=== PATIENT | male | born 1960 | race Caucasian/White ===

== ENCOUNTER → 2025-02-22 10:46 | Outpatient (BNVA) | payer OTHER, SELFPAY | PROVIDERS: PCP Family Medicine; Visit Provider Orthopaedic Surgery | DX: M17.12 Unilateral primary osteoarthritis, left knee (principal) | CPT/HCPCS: 20610; 99204; J3301; J3490; J9999 ==

== ENCOUNTER → 2025-03-15 10:23 | Outpatient (BNVA) | payer OTHER, SELFPAY | PROVIDERS: PCP Family Medicine; Visit Provider Orthopaedic Surgery | DX: M93.262 Osteochondritis dissecans, left knee (principal); G89.29 Other chronic pain | CPT/HCPCS: 99213 ==

== ENCOUNTER 2025-03-22 15:03 | Outpatient (CLI) | payer OTHER, SELFPAY ==
[2025-03-22 16:15] LABS: Basophils # 0.1 10^3/uL (0.0-0.1); Basophils % 0.7 %; Eosinophils # 0.4 10^3/uL (0.0-0.8); Eosinophils % 5.2 %; Hematocrit 46.8 % (37-53); Lymphocytes # 1.4 10^3/uL (0.8-4.8); Lymphocytes % 18.1 %; Mean Corpuscular HGB Conc 32.1 g/dL (30-55); Mean Corpuscular Hemoglobin 29.1 pg (27-33); Mean Corpuscular Volume 90.7 fl (82-101); Mean Platelet Volume 9.2 fL (7.4-10.4); Monocytes # 0.9 10^3/uL (0.2-0.9); Monocytes % 11.2 %; Neutrophils # 4.96 10^3/uL (1.8-7.7); Neutrophils % 64.4 %; Nucleated Red Blood Cells % 0 %; Platelet Count 220 10^3/cmm (157-399); Red Blood Count 5.16 10^6/uL (3.85-5.65); Red Cell Distribution Width 12.5 % (12.1-15.1); White Blood Count 7.69 10^3/uL (3.29-11.43)
[2025-03-22 16:18] LABS: Bilirubin Urine Negative (Negative); Blood Urine Negative (Negative); Glucose Urine UA Negative (Normal); Ketones Urine Trace (Negative); Leukocyte Esterase Urine Negative (Negative); Nitrate Urine Negative (Negative); Protein Urine Negative (Negative); Specific Gravity, Urine 1.026 (1.005-1.030); Urine Appearance Clear (CLEAR); Urine Color Yellow (Yellow); pH Urine 5.5 (5-7)
[2025-03-22 16:22] LABS: Add Urine Microscopic? YES; Bacteria Urine None Seen /hpf; Hyaline Casts Urine 0-4 /lpf; RBC Urine 0-2 /hpf (0-2); Squamous Epithelial Cell Urine 0-5 /hpf (0-5); WBC Urine 0-5 /hpf (0-5)
[2025-03-22 16:26] LABS: Alanine Aminotransferase 14 U/L (0-41); Albumin Level 3.8 g/dL (3.5-5.2); Alkaline Phosphatase 49 U/L (40-130); Anion Gap 13.7 (5-19); Aspartate Amino Transferase 18 U/L (0-40); Blood Urea Nitrogen 20 mg/dL (8-23); Calcium 9.2 mg/dL (8.5-10.5); Carbon Dioxide 30 mmol/L (22-29); Chloride 98 mmol/L (98-107); Globulin 3.1 g/dL (1.3-4.6); Glomerular Filtration Rate 84.7 mL/min (90-130); Glucose 112 mg/dL (65-115); Osmolality Calculated 287 mOsm/kg (285-295); Potassium 4.7 mmol/L (3.5-5.1); Sodium 137 mmol/L (136-145); Total Bilirubin 0.4 mg/dL (0.15-1.2); Total Protein 6.9 g/dL (6.6-8.7)
== END 2025-03-22 15:04 | disposition home or self-care (01) ==
LOC: LAB 15:05
PROVIDERS: PCP Family Medicine; Visit Provider Orthopaedic Surgery
DX: Z01.818 Encounter for other preprocedural examination (principal)
CPT/HCPCS: 80053; 81001; 85025

== ENCOUNTER → 2025-04-06 08:49 | Outpatient (BNVA) | payer OTHER, SELFPAY | PROVIDERS: PCP Family Medicine; Visit Provider Family Medicine | DX: Z01.818 Encounter for other preprocedural examination (principal) | CPT/HCPCS: 93005 ==

== ENCOUNTER 2025-04-21 13:33 | Observation (INO) | payer OTHER, MEDICARE, SELFPAY ==
[2025-04-21] VITALS (34 sets, daily range): BP systolic 102–208; BP diastolic 65–128; PULSE 72–115; RESP 12–27; TEMP 36.4–37.2; O2SAT 90–98; BMI 49.5
--- NOTE | 2025-04-21 10:15 | ANES.PREANE2 ---
Pre-Anesthetic Assessment Height/Weight: Height 6 ft Weight 365 lb Temp Pulse Resp BP Pulse Ox O2 Del Method 98.3 F 89 20 H 136/99 91 Room Air 04/21/25 08:50 04/21/25 08:50 04/21/25 08:50 04/21/25 08:50 04/21/25 08:50 04/21/25 09:02 Preop Diagnosis: Knee arthritis Operation Date: 04/21/25 10:35 Proposed Procedures p LEFT Total Knee Arthroplasty(Left) - Kehinde Tristan MD Was Beta Leonela taken within 24 hours: N/A Was Clonidine taken within 24 hours: N/A Last intake: Intake Last Liquid Date 04/21/25 Last Liquid Time 08:00 Last Solid Date 04/20/25 Last Solid Time 21:30 Social No alcohol and No tobacco Exam alert, oriented x 3, clear to auscultation bilaterally and regular rate & rhythm Airway Submandibular: within normal limits Cervical ROM: within normal limits Mallampati: Class III Comments: Comments: Implants Anesthetic Plan ASA status: 3 Anesthesia: MAC and Regional (specify below) Other: No prior anesthesia history NPO since yesterday evening other than half glass of water earlier this a.m. History of hypertension on lisinopril?HCTZ. Preop BP 136/99 Chronic back pain Type 2 diabetes, on metformin. Preop BS 98. Last A1c was 7.2 Recent labs reviewed acceptable for procedure EKG showing sinus rhythm Plan for spinal anesthesia with postoperative nerve block Medications/Allergies Home Medications ?Medication ?Instructions ?Recorded ?Confirmed ?Last Taken ?Type lisinopril 10 1 tab PO BID 03/15/25 04/21/25 04/20/25 History mg-hydrochlorothiazide 12.5 mg tablet tamsulosin 0.4 mg capsule 0.4 mg PO DAILY 03/15/25 04/21/25 04/20/25 History acetaminophen 500 mg tablet 1,500 mg PO BID 04/20/25 04/21/25 04/21/25 History diclofenac sodium 1 % topical gel 2 g topical QID 04/20/25 04/21/25 2 Weeks Ago History ~04/07/25 hydroxyzine HCl 25 mg tablet 25 mg PO BEDTIME 04/20/25 04/21/25 04/20/25 History metformin 1,000 mg tablet 500 mg PO BIDWMEAL 0704/21/25 04/20/25 History Allergies Allergy/AdvReac Type Severity Reaction Status Date / Time tetracycline Allergy Severe rash Verified 04/21/25 08:56 Current Medications Generic Name Dose Route Start Last Admin Trade Name Freq PRN Reason Stop Dose Admin Sodium Chloride 1,000 mls @ 30 mls/hr 04/21/25 08:45 04/21/25 09:20 Sodium Chloride 0.9% IV 04/22/25 08:44 30 mls/hr .Q24H CHRISSIE Administration PFSH Anesthesia Social History Smoking and tobacco/nicotine status: never used tobacco/nicotine
--- NOTE | 2025-04-21 10:25 | W.PM.OPSUD ---
Surgery/Procedure H&P Update DATE OF PROCEDURE: April 21, 2025 DATE H&P PERFORMED: 04/06/25 H&P UPDATE INFORMATION: I have reviewed H&P completed within last 30 days, I have examined patient prior to procedure and No changes to prior documentation PREOP DIAGNOSIS: Knee arthritis PLANNED PROCEDURE: Operation Date: 04/21/25 10:35 Proposed Procedures p LEFT Total Knee Arthroplasty(Left) - Kehinde Tristan MD
[2025-04-21] MEDS: ceFAZolin 3,000 MG in sodium chloride 0.9% (plus) 100 ML 200 MG IV ×2 (10:40→17:04)
[2025-04-21] MEDS: tranexamic acid 1,000 mg/10mL SDV 1000 MG IV (11:15)
--- NOTE | 2025-04-21 12:26 | XR_ITS ---
WS: [id number] Left knee, AP and lateral views, 04/21/2025 Clinical Data: Left total knee arthroplasty Comparison: Left knee, 01/04/2025 Findings: There is an left knee arthroplasty. The components are in good position. There are anterior surgical armaan in the subcutaneous tissue. There is air in the subcutaneous tissues from recent surgery. XR/XR knee LT 1-2V [id number] Impression: Left knee arthroplasty.
--- NOTE | 2025-04-21 12:33 | PM.OP ---
Operative Report Date of procedure: April 21, 2025 Surgeon: Kehinde Tristan MD Procedure: Preoperative diagnosis: End-stage degenerative joint disease left knee Postoperative diagnosis: Same Procedure: Left total knee arthroplasty Surgeon: Kehinde Tristan MD Pig Casting Machine Operator: GEE Weller's assistance was necessary for placement of the patient on the operative table, assistance during the procedure, assistance with wound closure, dressing placement and transported patient to the PACU Anesthesia: General EBL:50 cc Tourniquet time: 41 minutes at 300 mmHg Indications: Fernando is a 64-year-old white male who is seen in the orthopedic clinics after being worked up by his primary care provider. Subsequently MRI of his knee demonstrated osteochondral defect of the lateral femoral condyle as well as valgus position of the knee and further osteoarthritic changes throughout the knee. Patient had failed all conservative measures and therefore at this time was offered a total knee arthroplasty. All risk benefits treatment alternatives were discussed and he was agreeable to this at this time. Procedure: After obtaining consent patient taken to the operating room placed on the operative table. Per patient request spinal anesthetic was attempted however was unsuccessful and therefore the patient had a general anesthetic. Once good anesthesia was achieved pneumatic cuffs placed on proximal left leg left leg is prepped and draped usual fashion. After surgical timeout and gravity exsanguination of the leg pneumatic cuffs inflated to 300 mmHg. Then a holding device and therefore the knee was held at 90 degrees and a longitudinal incision made over the anterior aspect the knee from superior pole the patella down to the tibial tubercle. Sharp dissect taken down to subcutaneous tissues electrocautery used to hemostasis. Knee was opened up along medial parapatellar incision line. Incision was then extended proximally and distally for better visualization. Soft tissue was raised off the medial aspect of the tibia to expose the knee more. Soft tissue was sharply debrided including fat pad and ACL and anterior horns of the menisci. Knee was placed in full extension and patella was everted. Soft tissues were dissected away with electrocautery around the periphery. Rongeurs were used to remove osteophytes from the patella. Subsequently using a patella reaming male patella is reamed down to 14 mm thickness. Knee was flexed back to 90 degrees and patella was placed in the lateral gutter. Appropriate retractors were placed including PCL retractor. Tibial cutting guide was position externally with a with appropriate posterior slope. A 2 mm cut at the most affected side that being lateral was set for the cutting block. Small osteotome driven anterior to the PCL to protect it during cutting on the tibia. Sagittal saw was used to make the tibial cut. Tibial cut was removed piecemeal. It was found the lateral surface of the tibial plateau was quite sclerotic. At this point a drill holes placed in the distal femur just anterior to the intercondylar notch. Guide justino was then placed up this drill holes in the interventionally canal and the position of the distal femur for the distal femur cutting block. Once in place and pin distal cut was made which was found to be an adequate and therefore 2 more millimeters of distal femur were removed. Distal femur sized a size 11 femoral sizing guide. Drill holes placed through this guide for positioning of the cutting block. Size 11 distal femoral cutting block was impacted on the distal femur. Anterior posterior and chamfer cuts were made without any difficulties. PCL retractor was placed back in the knee and attention turned towards the proximal tibia. Soft tissue was sharply debrided including menisci and any other redundant tissue in the area. Tibia was sized to a size F tibial tray. This is positioned with an external guide justino and pinned in place. Intramedullary drilling and then punch was used to prepare for permanent implant. Locking pins were placed through this to leave the trial in place. At this point trial femoral component was placed and then trialing a size 10 polyethylene was placed on the tibial component knee put the range of motion found to be stable in all positions. Patella was then everted and sized to size 35 patellar button. Appropriate drill guide was placed on there and drill holes made. Trial patella button was placed and knee was put through range of motion found to be stable. At this point drill holes were placed of the distal femoral trial component for permanent process of the permanent component. All trial components were removed. Knee is washed with pulse lavage irrigation to remove all fragments of bone and [place] that occurred during the surgery. Once cleaned it was cleaned and dried. Size F permanent tibial portion growth tibial plate was driven into the proximal tibia. Size 11 permanent femoral component was then impacted on the distal femur. A permanent size 11 polyethylene spacer was placed on the tibial tray and locked in place. Knee was put through range of motion and to be stable. Subsequently a size 35 patellar button was then impacted into the posterior patella button range of motion found to be stable. Knee again was washed with sterile irrigation. Knee was put up on a knee bump and pneumatic cuff was deflated after 41 minutes of total tourniquet time. Extensor mechanism was repaired with #1 Vicryl xrpolp-sm-egacg sutures. Subcutaneous tissue reapproximated 0 Vicryl interrupted sutures. Skin was closed with skin armaan. Wounds are clean and dry dressed with Xeroform gauze sterile gauze dressing and adhesive dressing and Sushil wrap for compression. Patient was awakened transferred recovery in stable condition
[2025-04-21] MEDS: fentaNYL 50 mcg/mL INJ 2mL IVP ×2 (13:43→13:51)
--- NOTE | 2025-04-21 13:46 | PC.NURSE ---
1320 - OR staff as well as anesthesia has remained at side entire pacu stay - pt aggressively trying to get out of bed requiring multiple staff to keep pt in bed - pt uncooperative and keeps yelling let me up KAROLINA Rubio at side giving precedex throughout - Mindy, THREAD MACHINE OPERATOR to bed side to assess bloody drainage to left knee - bandage unwrapped - swelling noted to incision site and into pts calf area - blood expressed by hand from incision per Mindy - bandage rewrapped per Mindy - Dr Tristan notified of above - no new orders given - this nurse as well as x3 staff members remain with patient to attempt to keep calm
--- NOTE | 2025-04-21 14:07 | PC.NURSE ---
1407 - Dr Sow as well as Alis Quesada RN at pts side as well as this nurse attempting to dopple left dorsal pulse - unsuccessful - Mindy notified - left foot noted to be cooler than right
--- NOTE | 2025-04-21 14:30 | PC.NURSE ---
1425- Mindy at side assessing left dorsal pulse - castelan removed per this nurse per Mindy order
--- NOTE | 2025-04-21 15:08 | PC.NURSE ---
1442 - Per Mindy, DIET SUPERVISOR notified Dr Tristan of inability to dopple dorsals pulse to left foot - positive doppler to posterior tibial pulse left foot - palpable dorsals pulse on right foot - also notified of continued bleeding to left knee incision - stated ok to move pt to floor -
--- NOTE | 2025-04-21 15:09 | PC.NURSE ---
1502 - accepted into room 268 with MARY Babb and MARY Edgar at side - 02 4LNC - BP 175/86 - pulse 106 - 91% - bloody drainage to left knee assessed and circled per MARY Edgar - right dorsal pulse doppled per MAYR Edgar - MARY Schafer to room to give pt belongings to both MARY Babb and MARY Edgar - pt in no distress upon this nurse exiting room
[2025-04-21] MEDS: morphine 4 mg/mL SDV 1 mL IVP ×2 (15:17→19:44)
[2025-04-21 15:49] LABS: Hematocrit 45.1 % (37-53); Hemoglobin 13.90 g/dL (11.27-16.99); Mean Corpuscular HGB Conc 30.8 g/dL (30-55); Mean Corpuscular Hemoglobin 28.3 pg (27-33); Mean Corpuscular Volume 91.9 fl (82-101); Nucleated Red Blood Cells % 0 %; Platelet Count 287 10^3/cmm (157-399); Red Blood Count 4.91 10^6/uL (3.85-5.65); White Blood Count 13.61 10^3/uL (3.29-11.43)
[2025-04-21 16:01] LABS: Blood Urea Nitrogen 19 mg/dL (8-23); Calcium 8.6 mg/dL (8.5-10.5); Carbon Dioxide 29 mmol/L (22-29); Chloride 105 mmol/L (98-107); Creatinine Clr Calc Pharmacy 146.8547; Glucose 179 mg/dL (65-115); Osmolality Calculated 305 mOsm/kg (285-295); Sodium 144 mmol/L (136-145)
[2025-04-21 16:03] LABS: Anion Gap 14.9 (5-19); Potassium 4.9 mmol/L (3.5-5.1)
[2025-04-21 16:56] LABS: Slide Review Slide Review Perform
[2025-04-21] MEDS: sennosides-docusate Tablet 2 TAB PO (17:03)
[2025-04-21] MEDS: HYDROcodone-acetaminophen 5-325 mg Tablet 1 TAB PO (17:03)
[2025-04-21] MEDS: mupirocin oint 22 gm 1 APPLIC NASAL (17:04)
[2025-04-21] MEDS: diclofenac 1% Topical Gel 100 gm 2 APPLIC TOPICAL (17:04)
--- NOTE | 2025-04-21 18:36 | PC.NURSE ---
This nurse marked pulses after attaining with dopler at bedside with charge nurse. Patient not in distress. Having trouble urinating at this time. Marsh taken out in pacu.
[2025-04-21] MEDS: chlorhexidine gluconate 0.12% Btl 473 mL 30 ML MUCOUS MEM (19:44)
[2025-04-22 00:24] VITALS: RESP 14
[2025-04-22] MEDS: morphine 4 mg/mL SDV 1 mL IVP ×2 (00:24→04:51)
[2025-04-22] MEDS: ceFAZolin 3,000 MG in sodium chloride 0.9% (plus) 100 ML 200 MG IV ×2 (01:47→11:40)
[2025-04-22 03:34] VITALS: BP 155/61; PULSE 80; RESP 17; TEMP 36.6; O2SAT 90
[2025-04-22 04:51] VITALS: RESP 17
[2025-04-22 07:45] VITALS: BP 130/69; PULSE 84; RESP 18; TEMP 36.7; O2SAT 94
[2025-04-22] MEDS: multivitamin therapeutic Tablet 1 TAB PO (07:56)
[2025-04-22] MEDS: sennosides-docusate Tablet 2 TAB PO (07:56)
[2025-04-22] MEDS: diclofenac 1% Topical Gel 100 gm 2 APPLIC TOPICAL ×2 (08:01→14:34)
[2025-04-22] MEDS: mupirocin oint 22 gm 1 APPLIC NASAL (08:01)
[2025-04-22] MEDS: chlorhexidine gluconate 0.12% Btl 473 mL 30 ML MUCOUS MEM (08:01)
[2025-04-22] MEDS: HYDROcodone-acetaminophen 5-325 mg Tablet 1 TAB PO ×2 (08:13→12:39)
--- NOTE | 2025-04-22 09:31 | PC.CHAP ---
Pastoral Care Encounter/Spiritual Assessment Type of Contact [] Declined battery filler visit [] Patient/Family/Request visit [] Outpatient visit [] Follow-up visit [] Physician referral [] Code/Alert [x] Routine visit [] Staff referral [] Actively dying [] Patient sleeping [] Family support [] [] Out of room [] Palliative care [] [] Receiving care in room [] Pre-surgical visit [] Trauma [] Long length of stay [] ICU visit [] Other: Relational/Emotional Strength [x] Patient feels connected with others/family/visitors/staff [] Distress [] Loneliness/isolation [] Abandonment Spirituality of Patient [x] Person of Anya [] Attends Jewish of their Anya [x] Believes in Prayer [] Reads Bible or Hinduism materials [] There are Spiritual issues to be addressed Polygraph Operator Interventions [x] Prayer [x] Active listening [x] Non-anxious presence [x] Spiritual/emotional support [] Crisis/trauma care [] Spiritual counseling [] Bereavement support [] Provided bereavement packet [] Provided Bible/devotional materials [] Provided toy/stuffed animal, coloring book to patient or family member [] Provided Communion [] Anointing/[place] [] Salvation [x] Completed spiritual assessment [] Other: Impact on Illness or Injury [] Angry [] Fearful [] Anxious [] Often cries [] Exhaustion [] Unable to work [] Unable to attend orthodoxy [] Unable to walk/stand [] Unable to read [] Unable to drive [] Unable to eat/drink [] Unable to sleep [] Unable to be with family [] Patient intubated [] Other: Summary Time spent with patient 5 min
[2025-04-22 12:00] VITALS: BP 120/74; PULSE 77; RESP 19; TEMP 36.7; O2SAT 91
--- NOTE | 2025-04-22 14:04 | P.DS_ITS ---
Discharge Providers Date of Admission: 04/21/25 13:33 Date of Discharge: April 22, 2025 Attending Provider at Admission: Kehinde Tristan MD Attending Provider at Discharge: Kehinde Tristan MD Primary Care Provider: Lulu Alves MD Diagnoses at Discharge Discharge Diagnosis 1. Status post total left knee replacement: Reason for Visit Reason for Visit: M25.562 Brief History: Patient was followed in the orthopedic clinics for debilitating left knee pain. 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 Patient was then offered a total knee arthroplasty. Hospital Course Hospital Course Patient was admitted on 04/21/2025 and underwent the above-stated procedure. He tolerated this well. Postoperatively he was having some bleeding however dressings were reinforced and he did well over the course of the evening. His pain was brought under control with oral pain medication by the following morning. Physical therapy worked with him in the the next morning was up and ambulatory and doing well. Dressings were changed and a compressive wrap was placed on there. He continued to ooze through this however the dressing was changed again is felt that he could be stable enough to be discharged home. Patient's hemoglobin remained at 13.9 and preoperatively it was 15. Physical Exam Narrative: On examination today patient's dressing has some shadowing of dark bloody drainage towards the distal end. Patient is neurovascular intact distally in his left lower extremity. He is getting nearly full extension actively and is able flex up to 90 degrees easily without any difficulty. Urinary Catheter Management: Marsh: Cath Placed During This Visit: yes, but has since been removed by the nurse Urinary Catheter Date of Insertion: 04/21/25 Urinary Catheter Time of Insertion: 10:50 Date Urinary Catheter Removed: 04/21/25 Time Urinary Catheter Discontinued: 14:30 Discharge Data Studies Completed and Pending Completed Studies During Hospitalization Category Date Time Status XR knee LT 1-2V 52881 Urgent Exams 04/21/25 12:26 Completed Postoperative x-rays demonstrated adequate positioning of all components of the left total knee arthroplasty Radiology Impressions Knee X-Ray 04/21/25 12:26 Impression: Left knee arthroplasty. Laboratory Results WBC 13.61 10^3/uL (3.29-11.43) H 04/21/25 15:35 RBC 4.91 10^6/uL (3.85-5.65) 04/21/25 15:35 Hgb 13.90 g/dL (11.27-16.99) 04/21/25 15:35 Hct 45.1 % (37-53) 04/21/25 15:35 MCV 91.9 fl (82-101) 04/21/25 15:35 MCH 28.3 pg (27-33) 04/21/25 15:35 MCHC 30.8 g/dL (30-55) 04/21/25 15:35 RDW 13.7 % (12.1-15.1) 04/21/25 15:35 Plt Count 287 10^3/cmm (157-399) 04/21/25 15:35 MPV 9.1 fL (7.4-10.4) 04/21/25 15:35 Neut % (Auto) 81.2 % 04/21/25 15:35 Lymph % (Auto) 7.7 % 04/21/25 15:35 Mckenzie % (Auto) 3.9 % 04/21/25 15:35 Eos % (Auto) 1.1 % 04/21/25 15:35 Baso % (Auto) 0.7 % 04/21/25 15:35 Neut # (Auto) 11.05 10^3/uL (1.8-7.7) H 04/21/25 15:35 Lymph # (Auto) 1.1 10^3/uL (0.8-4.8) 04/21/25 15:35 Mckenzie # (Auto) 0.5 10^3/uL (0.2-0.9) 04/21/25 15:35 Eos # (Auto) 0.2 10^3/uL (0.0-0.8) 04/21/25 15:35 Baso # (Auto) 0.1 10^3/uL (0.0-0.1) 04/21/25 15:35 Nucleated RBC % (auto) 0 % 04/21/25 15:35 Nucleated RBCs # 0.0 /100WBC 04/21/25 15:35 Sodium 144 mmol/L (136-145) 04/21/25 15:35 Potassium 4.9 mmol/L (3.5-5.1) 04/21/25 15:35 Chloride 105 mmol/L (98-107) 04/21/25 15:35 Carbon Dioxide 29 mmol/L (22-29) 04/21/25 15:35 Anion Gap 14.9 (5-19) 04/21/25 15:35 BUN 19 mg/dL (8-23) 04/21/25 15:35 Creatinine 0.8 mg/dL (0.7-1.2) 04/21/25 15:35 GFR Calculation 97.0 mL/min (90-130) 04/21/25 15:35 Glucose 179 mg/dL (65-115) H 04/21/25 15:35 POC Glucose 151 mg/dL (70-110) H 04/21/25 16:47 Calculated Osmolality 305 mOsm/kg (285-295) H 04/21/25 15:35 Calcium 8.6 mg/dL (8.5-10.5) 04/21/25 15:35 Procedures Performed Left total knee arthroplasty Vitals Last Vital Signs Temp 98.1 F 04/22/25 12:00 Pulse 77 04/22/25 12:00 Resp 19 H 04/22/25 12:00 BP 120/74 04/22/25 12:00 Pulse Ox 91 04/22/25 12:00 O2 Del Method Room Air 04/22/25 03:34 O2 Flow Rate 3 04/21/25 19:35 Discharge Plan Discharge Patient Disposition: Home Condition: Stable Prescriptions: New hydrocodone-acetaminophen 5-325 mg tablet 1 tab PO Q6H PRN (Reason: pain) Qty: 30 0RF Continued tamsulosin 0.4 mg capsule 0.4 mg PO DAILY lisinopril-hydrochlorothiazide 10-12.5 mg tablet 1 tab PO BID metformin 1,000 mg Tablet 500 mg PO BIDWMEAL hydroxyzine HCl 25 mg Tablet 25 mg PO BEDTIME diclofenac sodium 1 % Gel 2 g TOPICAL QID Rx Instructions: apply to single elbow, wrist or hand; for hand includes palm/fingers/back of hand acetaminophen 500 mg Tablet 1,500 mg PO BID Discharge Order = DC NOW: Discharge Order (Routine); Ordered 04/22/25 Ordered By: Kehinde Tristan Other Ambulatory Orders: DME: Walker (Order) Location: None Selected Ordered By: Kehinde Tristan Referrals: Kehinde Tristan MD [Physician, Orthopedics] - 05/04/25 2:45 pm Discharge Diet: Advance as tolerated Discharge Activity: Increase activity as tolerated and Limit activity as in structed Patient Instructions: Hydrocodone/Acetaminophen (By mouth) (Vicodin, [place]), Acute Wound Care (DC), Precautions after Total Joint Replacement Surgery (DC), Joint Replacement Surgery (DC), Opioid Safety, Post Anesthesia Care, Patient Portal & Gianna Instructions Activity Restrictions/Additional Instructions: Keep wound covered clean and dry Cover wound to shower Ice and elevate frequently Reinforce or change dressing as needed Call with any concerns Discharge Attestations Time Spent in Discharge Care*: greater than 30 min Quality Metrics Clinical Quality Measures [ No reported AMI, CVA or VTE this stay] Coding Level of Care Code Acute Code for Chg Fwd Diagnoses Status post total left knee replacement Z96.652 Laterality: left
[2025-04-22 15:08] VITALS: BP 120/74; PULSE 77; RESP 19; TEMP 36.7; O2SAT 91
--- NOTE | 2025-04-22 15:08 | PC.NURSE ---
Discharge Note Patient discharged to home via private vehicle accompanied by son. 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 Mobile pharmacy medications and/or prescriptions provided. Belongings/home medications returned.
== END 2025-04-22 15:09 | disposition home health service (06) ==
LOC: MEDSURG 13:35
PROVIDERS: Admitting Provider Orthopaedic Surgery; PCP Family Medicine; Visit Provider Orthopaedic Surgery
PROC: (CPT 27447; principal; 2025-04-21 10:35)
DX: M17.12 Unilateral primary osteoarthritis, left knee (principal); I10 Essential (primary) hypertension; E11.9 Type 2 diabetes mellitus without complications; Z79.84 Long term (current) use of oral hypoglycemic drugs
CPT/HCPCS: 27447; 36415; 36416; 51702; 73560; 80048; 82962; 85025; 97110; 97116; 97163; 97165; 97530; A4216; C1776; G0378; J0330; J0690; J1100; J1885; J2250; J2270; J2405; J2704; J3010; J3490; J7030; J9999

== ENCOUNTER 2025-04-27 17:31 | Emergency (ER) | payer OTHER, SELFPAY ==
--- OUTSIDE RECORDS SUMMARY | 2025-04-21 07:00 | XMS_ITS ---
Author Name [facility] [place] [facility] [place] [facility] [place] [facility] [place] Address [address] [place] [address] Care Team Providers Care Hot Molder Name Role Phone JUAN DAVID ROSANNA Primary Care Provider Unavailabl e Insurance Providers: All historical and current Section Date Range: From patient's date of to the date document was created. This section includes the names of all active insurance providers for the patient. Insurance Provider Type of Coverage Plan Name Start of Policy Coverage End of Policy Coverage Group Number Member ID Insurance Provider's Telephone Number Policy Dye's Name Patient's Relationship to Policy Dye MEDICARE (WNR) MEDICARE (M) PART A Aug 23, 2024 PART A [id number] CYNTHIA VIGIL PATIENT MEDICARE (WNR) MEDICARE (M) PART B Aug 23, 2024 PART B [id number] [phone] [place]IA VIGIL PATIENT Selected Encounter This section includes the information on record at [place] for the Encounter. Date/Time Encounter Type Encounter Description Reason Pro vider Source Apr 21, 2025 12:00 PM Outpatient Encounter EVENT (HISTORICAL) IHE Encounter Template Text not used by [place] Plan of Treatment: Future Appointments (+ 6 months) and Future Tests (+/- 45 days) The Plan of Treatment section includes future care activities for the patient from all [facility] treatment[facility]. This section includes future appointments and future orders which are active, pending or scheduled. Future Appointments This section includes appointments that were scheduled to occur 6 months from the date of the Encounter, up to a maximum of 20 appointments. The data comes from all [facility]. Appointment Date/Time Appointment Type Appointme nt Facility Name Apr 23, 2025 08:00 AM [facility] MEDICINE [facility] Aug 02, 2025 09:00 AM AMBULATORY MEDICINE [facility] Aug 09, 2025 09:15 AM AMBULATORY MEDICINE [facility] Aug 09, 2025 09:16 AM AMBULATORY [facility] Active, Pending, and Scheduled Orders This section includes a listing of several types of active, pending, and scheduled orders, including clinic medications orders, diagnostic test orders, procedure orders and consult orders; where the start date of the order is 45 days before the date of the Encounter or 45 days after the date of theEncounter. The data comes from all [facility]. Test Date/Time Test Type Test Details Facility Name Apr 22, 2025 12:00 PM Consult Order [facility] [id number] Cons Front Line Leader's Choice [facility] Encounter Notes: All associated encounter notes This section contains the clinical notes associated to the Encounter. Date/Time Encounter Note(s) Provider Source Apr 21, 2025 12:00 PM NONVA CONSULT: LOCAL TITLE: [facility]-CONSULT RESULT NOTE PB STANDARD TITLE: NONVA CONSULT DATE OF NOTE: APR 21, 2025@12:00 ENTRY DATE: APR 23, 2025@14:16:46 AUTHOR: ROBERT DENNEY EXP COSIGNER: URGENCY: STATUS: COMPLETED VistA Imaging - Scanned Document [facility] SCANNED DOCUMENT SIGNATURE NOT REQUIRED Electronically Filed: 04/23/2025 by: ROBERT DENNEY [facility]ERT DENNEY [facility]
--- OUTSIDE RECORDS SUMMARY | 2025-04-22 09:12 | XMS_ITS | Encounter Summary ---
Author Name [facility] [place] [facility] [place] [facility] [place] Address [address] [place] [address] Care Team Providers Care Basketball Commentator Name Role Phone JUAN DAVIDLEE ANNE Primary Care Provider Unavailabl e Insurance Providers: [...] PART A Aug 23, 2024 PART A [id number] [phone] CYNTHIA VIGILKAPIL PATIENT MEDICARE (WNR) MEDICARE (M) PART B Aug 23, 2024 PART B [id number] [phone] CYNTHIA VIGIL PATIENT Selected Encounter This section includes the information on record at [place] for the Encounter. Date/Time Encounter Type Encounter Description Reason Pro vider Source Apr 22, 2025 02:12 PM Outpatient Encounter COMMUNITY CARE CONSULT IHE Encounter Template Text not used by [place] Plan of Treatment: Future Appointments (+ 6 [...] 20 appointments. The data comes from all [facility]. Appointment Date/Time Appointment Type Appointme nt Facility Name Apr 23, 2025 08:00 AM AMBULATORY - MEDICINE [facility] Aug 02, 2025 09:00 AM AMBULATORY - MEDICINE [facility] Aug 09, 2025 09:15 AM AMBULATORY - MEDICINE [facility] Aug 09, 2025 09:16 AM AMBULATORY MEDICINE [facility] Active, Pending, and Scheduled Orders This section includes a listing of several types of active, pending, and scheduled orders, including clinic medications orders, diagnostic test orders, procedure orders and consult orders; where the start date of the order is 45 days before the date of the Encounter or 45 days after the date of theEncounter. The data comes from all [facility]. Test Date/Time Test Type Test Details Facility Name Apr 22, 2025 12:00 PM Consult Order [facility] SKILLED HOME CARE [id number] Cons Slice Cutting Machine Operator Helper's Choice [facility] Encounter Notes: All associated encounter notes This section contains the clinical notes associated to the Encounter. Date/Time Encounter Note(s) Provider Source Apr 22, 2025 02:12 PM GERIATRIC MEDICINE INTERLOCKING MACHINE OPERATOR NOTE: LOCAL TITLE: [facility] CARE COORDINATION TEAM NOTE STANDARD TITLE: GERIATRIC MEDICINE INTERLOCKING MACHINE OPERATOR NOTE DATE OF NOTE: APR 22, 2025@14:12 ENTRY DATE: APR 22, 2025@14:13:07 AUTHOR: EDUARDO ANDERSON EXP COSIGNER: URGENCY: STATUS: COMPLETED THE PATIENT HAS BEEN REFERRED TO THE FOLLOWING SERVICES HOME CARE SERVICES: [facility] skilled Home Health Care SN, PT HOME CARE SERVICE FUNDING: [facility]: [employer] Date service is projected to start: [id number] Date service is projected to end: [id number] DURATION OF CARE: SKILLED/INHOME: 120 DAYS NAME OF AGENCY TO PROVIDE SERVICES: Agency: [facility] ([facility]) Address: [address] [place] [address], [address] [address] Office: [phone] Email: [email or web address] CCN: Region 2 Tax ID: [id number] -HOME Health. Checked [id number]. Contact: Kamila Lujan *Please send all correspondence/orders to Dr. Lulu Alves-Enrolled [id number]- [facility]. Helpful phone numbers: Ludy Sutton [facility] Systems Analyst Engineer - [phone] [place] phone: [phone]; fax: [phone] '[facility]' team - Dr. Lulu Alves' RN Darlyn Rodríguez [id number] Care Coordination Point of Contact: BRITTNEY Long, RN [phone] Email: , PLAN: New Services- Transition to Skilled Home Health Services /yeni/ Eduardo LUGO, RN Damon Freeman [facility] Signed: 04/22/2025 14:17 Receipt Acknowledged By: 04/22/2025 15:35 /yeni/ EDUARDO CANCINO [facility]
--- OUTSIDE RECORDS SUMMARY | 2025-04-27 12:38 | XMS_ITS | Continuity of Care Document ---
Author Name [facility] Organization [facility] Care Team Providers Care Fifth Hand Name Role Phone [facility] Unavailable Unavailable Problems Combined list of problems from Department of Defense and Veterans Affairs facilities. It does not include entries that were removed or entered in error. Problem Status Onset Date Problem Type Date of Resolution Comments Source Allergic Rhinitis ([facility] [id number]) Active Condition [place] [facility] Benign Prostatic Hypertrophy without Outflow Obstruction ([facility] [id number]) Active Condition [place] [facility] Diabetes Mellitus Type 2 ([facility] [id number]) Active Condition [place] [facility] HTN - Hypertension ([facility] [id number]) Active Condition [place] [facility] Low Back Pain ([facility] [id number]) Active Condition [place] [facility] Obesity ([facility] [id number]) Active Condition [place] [facility] Pain of Left Knee Region ([facility] [id number]) Active Condition [place] [facility] Psoriasis ([facility] [id number]) Active Condition [place] [facility] Right knee pain Active Condition [place] [facility] Diagnosis: ICD-10-CM M25.562 Pain in left knee Active Diagnosis [facility] Diagnosis: ICD-10-CM M17.12 Unilateral primary osteoarthritis, left knee Active Diagnosis [facility] Diagnosis: ICD-10-CM M25.569 Pain in unspecified knee Active Diagnosis [facility] Diagnosis: ICD-10-CM I10 Essential (primary) hypertension Active Diagnosis [facility] Diagnosis: ICD-10-CM Z00.01 Encounter for general adult medical exam w abnormal findings Active Diagnosis [facility] Medications Combined list of outpatient medications from Department of Defense and Veterans Affairs facilities.Medications provided include 1) outpatient medications from the last 15 months, and 2) patient-reported medications. Medication Details Route Status Patient Instructions Prescription Expires Prescription Number Last Dispense Date Ordering Provider Order Date Order Qty Source DICLOFENAC NA 1% GEL,TOP APPLY 2 GM TO AFFECTED AREA(S) FOUR TIMES A DAY NEEDED FOR PAIN NO MORE THAN 16 GM/DAY TO ANY LOWER EXTREMIT Y JOINT. NO MORE THAN 8 GM/DAY TO ANY UPPER EXTREMIT Y JOINT. MAX 32GM/DAY OVER ALL JOINTS.( MEASURE DOSE WITH RULER INSIDE BOX) TOPICA L ACTIVE 09/05/2025 [id number] LEE ANN FALL 2023 100 [facility] HYDROCHLORO THIAZIDE 12.5MG/MANPREET NOPRIL 20MG TAB TAKE 2 TABLETS BY MOUTH EVERY MORNING FOR HIGH BLOOD PRESSURE ORAL ACTIVE 09/05/2025 [id number] 5 LEE ANN FALL 2023 180 [facility] HYDROXYZINE HCL 25MG TAB TAKE ONE TABLET BY MOUTH AT BEDTIME INSOMNIA *MAY CAUSE DROWSINE SS* ORAL ACTIVE 09/05/2025 [id number] 5 LEE ANN FALL 2023 90 [facility] METFORMIN HCL 1000MG TAB TAKE ONE-HALF TABLET BY MOUTH TWICE A DAY WITH MEALS FOR DIABETES TAKE WITH FOOD. AVOID ALCOHOL. DISCONTI NUE BEFORE GETTING XRAY DYE. ORAL ACTIVE 09/05/2025 [id number] 5 LEE ANN FALL 2023 90 [facility] METHYLPREDN ISOLONE 4MG TAB DOSEPAK,21 TAKE TABLETS BY MOUTH DIRECTED FOR INFLAMMA TION TAKE 6 TABLETS BY MOUTH ON DAY ONE, THEN DECREASE BY ONE TABLET DAILY UNTIL GONE. TAKE WITH FOOD. ORAL 10/30/2024 [id number] 5 LEE ANN FALL 2024 1 [facility] TAMSULOSIN HCL 0.4MG CAP TAKE ONE CAPSULE BY MOUTH EVERY EVENING FOR BENIGN PROSTATI C HYPERPLA GAY APPROXIM ATELY 30 MINUTES AFTER THE SAME MEAL EACH DAY ORAL ACTIVE 09/05/2025 [id number] 5 LEE ANN FALL 2023 90 [facility] Allergies, Adverse Reactions, Alerts Combined list of allergies from Department of Defense and Veterans Affairs facilities. It does not include entries that were removed or entered in error. Substance Category Reaction Severity Reaction type Status Date Reported Comments Source TETRACYCLINE Propensity to adverse reactions to drug (finding) Urticaria MODERATE active 4 [facility] Immunizations Combined list of available immunizations from the Department of Defense and Veterans [facility] facilities. Immunization Series Date Given Administered By Site Reaction Lot Number CVX Code Drug Manager Of Case Status Comments Source TDAP 2023 RADHA RESENDIZ RIGHT DELTO ID [id number] complet ed [facility] Results Combined list of recent chemistry, hematology and other laboratory results from Department of [facility] and [facility], ranging from 15 months to all on record, depending upon the facility. Order Name Results Value Reference Range Date Interpretation Specimen Comments Source HGA1C HEMOGLOBIN A1C/HEMOGLOBI N.TOTAL IN BLOOD 7.2 4.0 - 6.0 03/05 H Specimen Type: BLOOD No comment entered. Ordering Provider: LEE ANN FALL Report Released Date/Time : Sep 07, 2024 02:50 PM Reporting Lab: [place] [facility] [address] [place] [address] Performin g Lab: [place] [facility] [address] [place] [address] [facility] CHOLESTEROL PANEL (PB) CHOLESTEROL [MASS/VOLUME] IN SERUM OR PLASMA 175 mg/dL 0 - 200 03/05 Specimen Type: PLASMA No comment entered. Ordering Provider: LEE ANN FALL Report Released Date/Time : Sep 07, 2024 02:50 PM Reporting Lab: [place] [facility] [address] [place] [address] Performin g Lab: [place] [facility] [address] [place] [address] [facility] CHOLESTEROL PANEL (PB) TRIGLYCERIDE [MASS/VOLUME] IN SERUM OR PLASMA 84 mg/dL 0 - 150 03/05 Specimen Type: PLASMA No comment entered. Ordering Provider: LEE ANN FALL Report Released Date/Time : Sep 07, 2024 02:50 PM Reporting Lab: [place] [facility] [address] [place] [address] Performin g Lab: [place] [facility] [address] [place] [address] 8 [facility] CHOLESTEROL PANEL (PB) CHOLESTEROL IN LDL [MASS/VOLUME] IN SERUM OR PLASMA BY CALCULATION 116.9 mg/dL 03/05 Specimen Type: PLASMA No comment entered. Ordering Provider: LEE ANN FALL Report Released Date/Time : Sep 07, 2024 02:50 PM Reporting Lab: [place] [facility] [address] [place] [address] Performin g Lab: [place] [facility] [address] [place] [address] 8 [facility] CHOLESTEROL PANEL (PB) CHOLESTEROL IN HDL [MASS/VOLUME] IN SERUM OR PLASMA 41.3 mg/dL 40 03/05 H Specimen Type: PLASMA No comment entered. Ordering Provider: LEE ANN FALL Report Released Date/Time : Sep 07, 2024 02:50 PM Reporting Lab: [place] [facility] [address] [place] [address] Performin g Lab: [place] [facility] [address] [place] [address] 8 [facility] CHOLESTEROL PANEL (PB) CHOLESTEROL IN HDL/CHOLESTER OL.TOTAL [MASS RATIO] IN SERUM OR PLASMA 23.6 25 03/05 Specimen Type: PLASMA No comment entered. Ordering Provider: LEE ANN FALL Report Released Date/Time : Sep 07, 2024 02:50 PM Reporting Lab: [place] [facility] [address] [place] [address] Performin g Lab: [place] [facility] [address] [place] [address] [facility] URINE ALBUMIN PROFILE-ih (PB) ALBUMIN [MASS/VOLUME] IN URINE 13.49 mg/L 03/05 Specimen Type: URINE No comment entered. Ordering Provider: LEE ANN FALL Report Released Date/Time : Sep 07, 2024 02:50 PM Reporting Lab: [place] [facility] [address] [place] [address] 8 Performin g Lab: [place] [facility] [address] [place] [address] 8 [facility] URINE ALBUMIN PROFILE-ih (PB) ALBUMIN/CREAT ININE [MASS RATIO] IN URINE 15.21 mg/g 0 - 30 03/05 Specimen Type: URINE No comment entered. Ordering Provider: LEE ANN FALL Report Released Date/Time : Sep 07, 2024 02:50 PM Reporting Lab: [place] [facility] [address] [place] [address] Performin g Lab: [place] [facility] [address] [place] [address] [facility] URINE ALBUMIN PROFILE-ih (PB) CREATININE [MASS/VOLUME] IN URINE 88.69 mg/dL 03/05 Specimen Type: URINE No comment entered. Ordering Provider: LEE ANN FALL Report Released Date/Time : Sep 07, 2024 02:50 PM Reporting Lab: [place] [facility] [address] [place] [address] 8 Performin g Lab: [place] [facility] [address] [place] [address] [facility] CBC LEUKOCYTES [#/VOLUME] IN BLOOD BY AUTOMATED COUNT 7.8 10*3/u L 3.6 - 11.2 03/05 Specimen Type: BLOOD No comment entered. Ordering Provider: LEE ANN FALL Report Released Date/Time : Sep 07, 2024 02:50 PM Reporting Lab: [place] [facility] [address] [place] [address] Performin g Lab: [place] [facility] [address] [place] [address] [facility] CBC ERYTHROCYTES [#/VOLUME] IN BLOOD BY AUTOMATED COUNT 5.24 10*6/u L 4.10 - 5.70 03/05 Specimen Type: BLOOD No comment entered. Ordering Provider: LEE ANN FALL Report Released Date/Time : Sep 07, 2024 02:50 PM Reporting Lab: [place] [facility] [address] [place] [address] Performin g Lab: [place] [facility] [address] [place] [address] 8 [facility] CBC HEMOGLOBIN [MASS/VOLUME] IN BLOOD 15.6 g/dL 13.1 - 16.8 03/05 Specimen Type: BLOOD No comment entered. Ordering Provider: LEE ANN FALL Report Released Date/Time : Sep 07, 2024 02:50 PM Reporting Lab: [place] [facility] [address] [place] [address] Performin g Lab: [place] [facility] [address] [place] [address] 8 [facility] CBC HEMATOCRIT [VOLUME FRACTION] OF BLOOD 46.9 38.2 - 48.4 03/05 Specimen Type: BLOOD No comment entered. Ordering Provider: LEE ANN FALL Report Released Date/Time : Sep 07, 2024 02:50 PM Reporting Lab: [place] [facility] [address] [place] [address] 8 Performin g Lab: [place] [facility] [address] [place] [address] [facility] CBC MCV [ENTITIC VOLUME] BY AUTOMATED COUNT 89.5 fL 80.0 - 100.0 03/05 Specimen Type: BLOOD No comment entered. Ordering Provider: LEE ANN FALL Report Released Date/Time : Sep 07, 2024 02:50 PM Reporting Lab: [place] [facility] [address] [place] [address] Performin g Lab: [place] [facility] [address] [place] [address] 8 [facility] CBC MCH [ENTITIC MASS] BY AUTOMATED COUNT 29.8 pg 27.0 - 34.0 03/05 Specimen Type: BLOOD No comment entered. Ordering Provider: LEE ANN FALL Report Released Date/Time : Sep 07, 2024 02:50 PM Reporting Lab: [place] [facility] [address] [place] [address] 8 Performin g Lab: [place] [facility] [address] [place] [address] 8 [facility] CBC MCHC [MASS/VOLUME] BY AUTOMATED COUNT 33.3 g/dL 33.0 - 36.0 03/05 Specimen Type: BLOOD No comment entered. Ordering Provider: LEE ANN FALL Report Released Date/Time : Sep 07, 2024 02:50 PM Reporting Lab: [place] [facility] [address] [place] [address] Performin g Lab: [place] [facility] [address] [place] [address] 8 [facility] CBC PLATELETS [#/VOLUME] IN BLOOD BY AUTOMATED COUNT 235 10*3/u L 150 - 400 03/05 Specimen Type: BLOOD No comment entered. Ordering Provider: LEE ANN FALL Report Released Date/Time : Sep 07, 2024 02:50 PM Reporting Lab: [place] [facility] [address] [place] [address] 8 Performin g Lab: [place] [facility] [address] [place] [address] [facility] CBC PLATELET MEAN VOLUME [ENTITIC VOLUME] IN BLOOD BY AUTOMATED COUNT 9.6 fL 7.5 - 11.2 03/05 Specimen Type: BLOOD No comment entered. Ordering Provider: LEE ANN FALL Report Released Date/Time : Sep 07, 2024 02:50 PM Reporting Lab: [place] [facility] [address] [place] [address] 8 Performin g Lab: [place] [facility] [address] [place] [address] [facility] CBC ERYTHROCYTE DISTRIBUTION WIDTH [RATIO] BY AUTOMATED COUNT 11.9 11.8 - 15.1 03/05 Specimen Type: BLOOD No comment entered. Ordering Provider: LEE ANN FALL Report Released Date/Time : Sep 07, 2024 02:50 PM Reporting Lab: [place] [facility] [address] [place] [address] Performin g Lab: [place] [facility] [address] [place] [address] [facility] CBC LYMPHOCYTES/1 00 LEUKOCYTES IN BLOOD BY AUTOMATED COUNT 17.1 03/05 Specimen Type: BLOOD No comment entered. Ordering Provider: LEE ANN FALL Report Released Date/Time : Sep 07, 2024 02:50 PM Reporting Lab: [place] [facility] [address] [place] [address] Performin g Lab: [place] [facility] [address] [place] [address] 8 [facility] CBC MONOCYTES/100 LEUKOCYTES IN BLOOD BY AUTOMATED COUNT 10.8 03/05 Specimen Type: BLOOD No comment entered. Ordering Provider: LEE ANN FALL Report Released Date/Time : Sep 07, 2024 02:50 PM Reporting Lab: [place] [facility] [address] [place] [address] Performin g Lab: [place] [facility] [address] [place] [address] 8 [facility] CBC NEUTROPHILS/1 00 LEUKOCYTES IN BLOOD BY AUTOMATED COUNT 66.6 03/05 Specimen Type: BLOOD No comment entered. Ordering Provider: LEE ANN FALL Report Released Date/Time : Sep 07, 2024 02:50 PM Reporting Lab: [place] [facility] [address] [place] [address] Performin g Lab: [place] [facility] [address] [place] [address] 8 [facility] CBC EOSINOPHILS/1 00 LEUKOCYTES IN BLOOD BY AUTOMATED COUNT 4.1 03/05 Specimen Type: BLOOD No comment entered. Ordering Provider: LEE ANN FALL Report Released Date/Time : Sep 07, 2024 02:50 PM Reporting Lab: [place] [facility] [address] [place] [address] Performin g Lab: [place] [facility] [address] [place] [address] 8 [facility] CBC BASOPHILS/100 LEUKOCYTES IN BLOOD BY AUTOMATED COUNT 1.1 03/05 Specimen Type: BLOOD No comment entered. Ordering Provider: LEE ANN FALL Report Released Date/Time : Sep 07, 2024 02:50 PM Reporting Lab: [place] [facility] [address] [place] [address] Performin g Lab: [place] [facility] [address] [place] [address] [facility] CBC LYMPHOCYTES [#/VOLUME] IN BLOOD BY AUTOMATED COUNT 1.34 10*3/u L 0.77 - 4.50 03/05 Specimen Type: BLOOD No comment entered. Ordering Provider: LEE ANN FALL Report Released Date/Time : Sep 07, 2024 02:50 PM Reporting Lab: [place] [facility] [address] [place] [address] Performin g Lab: [place] [facility] [address] [place] [address] [facility] CBC MONOCYTES [#/VOLUME] IN BLOOD BY AUTOMATED COUNT 0.85 10*3/u L 0.19 - 0.8 03/05 H Specimen Type: BLOOD No comment entered. Ordering Provider: LEE ANN FALL Report Released Date/Time : Sep 07, 2024 02:50 PM Reporting Lab: [place] [facility] [address] [place] [address] Performin g Lab: [place] [facility] [address] [place] [address] [facility] CBC NEUTROPHILS [#/VOLUME] IN BLOOD BY AUTOMATED COUNT 5.22 10*3/u L 2.10 - 8.00 03/05 Specimen Type: BLOOD No comment entered. Ordering Provider: LEE ANN FALL Report Released Date/Time : Sep 07, 2024 02:50 PM Reporting Lab: [place] [facility] [address] [place] [address] Performin g Lab: [place] [facility] [address] [place] [address] 8 [facility] CBC EOSINOPHILS [#/VOLUME] IN BLOOD BY AUTOMATED COUNT 0.32 10*3/u L 0.00 - 0.60 03/05 Specimen Type: BLOOD No comment entered. Ordering Provider: LEE ANN FALL Report Released Date/Time : Sep 07, 2024 02:50 PM Reporting Lab: [place] [facility] [address] [place] [address] Performin g Lab: [place] [facility] [address] [place] [address] 8 [facility] CBC BASOPHILS [#/VOLUME] IN BLOOD BY AUTOMATED COUNT 0.09 10*3/u L 0.00 - 0.20 03/05 Specimen Type: BLOOD No comment entered. Ordering Provider: LEE ANN FALL Report Released Date/Time : Sep 07, 2024 02:50 PM Reporting Lab: [place] [facility] [address] [place] [address] Performin g Lab: [place] [facility] [address] [place] [address] [facility] CBC IMMATURE GRANULOCYTES/ 100 LEUKOCYTES IN BLOOD BY AUTOMATED COUNT 0.3 03/05 Specimen Type: BLOOD No comment entered. Ordering Provider: LEE ANN FALL Report Released Date/Time : Sep 07, 2024 02:50 PM Reporting Lab: [place] [facility] [address] [place] [address] Performin g Lab: [place] [facility] [address] [place] [address] [facility] CBC IMMATURE GRANULOCYTES [#/VOLUME] IN BLOOD BY AUTOMATED COUNT 0.02 10*3/u L 0.00 - 0.05 03/05 Specimen Type: BLOOD No comment entered. Ordering Provider: LEE ANN FALL Report Released Date/Time : Sep 07, 2024 02:50 PM Reporting Lab: [place] [facility] [address] [place] [address] Performin g Lab: [place] [facility] [address] [place] [address] [facility] COMPREHENSI VE METABOLIC PANEL CREATININE [MASS/VOLUME] IN SERUM OR PLASMA 0.84 mg/dL 0.7 - 1.3 03/05 Specimen Type: PLASMA No comment entered. Ordering Provider: LEE ANN FALL Report Released Date/Time : Sep 07, 2024 02:50 PM Reporting Lab: [place] [facility] [address] [place] [address] Performin g Lab: [place] [facility] [address] [place] [address] [facility] COMPREHENSI VE METABOLIC PANEL UREA NITROGEN [MASS/VOLUME] IN SERUM OR PLASMA 24 mg/dL 9 - 25 03/05 Specimen Type: PLASMA No comment entered. Ordering Provider: LEE ANN AFLL Report Released Date/Time : Sep 07, 2024 02:50 PM Reporting Lab: [place] [facility] [address] [place] [address] Performin g Lab: [place] [facility] [address] [place] [address] 8 [facility] COMPREHENSI VE METABOLIC PANEL GLUCOSE [MASS/VOLUME] IN SERUM OR PLASMA 125 mg/dL 72 - 99 03/05 H Specimen Type: PLASMA No comment entered. Ordering Provider: LEE ANN FALL Report Released Date/Time : Sep 07, 2024 02:50 PM Reporting Lab: [place] [facility] [address] [place] [address] Performin g Lab: [place] [facility] [address] [place] [address] [facility] COMPREHENSI VE METABOLIC PANEL SODIUM [MOLES/VOLUME ] IN SERUM OR PLASMA 133 meq/L 136 - 145 03/05 L Specimen Type: PLASMA No comment entered. Ordering Provider: LEE ANN FALL Report Released Date/Time : Sep 07, 2024 02:50 PM Reporting Lab: [place] [facility] [address] [place] [address] Performin g Lab: [place] [facility] [address] [place] [address] [facility] COMPREHENSI VE METABOLIC PANEL POTASSIUM [MOLES/VOLUME ] IN SERUM OR PLASMA 4.7 meq/L 3.5 - 5 03/05 Specimen Type: PLASMA No comment entered. Ordering Provider: LEE ANN FALL Report Released Date/Time : Sep 07, 2024 02:50 PM Reporting Lab: [place] [facility] [address] [place] [address] Performin g Lab: [place] [facility] [address] [place] [address] 8 [facility] COMPREHENSI VE METABOLIC PANEL CHLORIDE [MOLES/VOLUME ] IN SERUM OR PLASMA 94 meq/L 98 - 107 03/05 L Specimen Type: PLASMA No comment entered. Ordering Provider: LEE ANN FALL Report Released Date/Time : Sep 07, 2024 02:50 PM Reporting Lab: [place] [facility] [address] [place] [address] Performin g Lab: [place] [facility] [address] [place] [address] 8 [facility] COMPREHENSI VE METABOLIC PANEL CARBON DIOXIDE, TOTAL [MOLES/VOLUME ] IN SERUM OR PLASMA 30 meq/L 22 - 31 03/05 Specimen Type: PLASMA No comment entered. Ordering Provider: LEE ANN FALL Report Released Date/Time : Sep 07, 2024 02:50 PM Reporting Lab: [place] [facility] [address] [place] [address] Performin g Lab: [place] [facility] [address] [place] [address] 8 [facility] COMPREHENSI VE METABOLIC PANEL CALCIUM [MASS/VOLUME] IN SERUM OR PLASMA 9.4 mg/dL 8.4 - 10.4 03/05 Specimen Type: PLASMA No comment entered. Ordering Provider: LEE ANN FALL Report Released Date/Time : Sep 07, 2024 02:50 PM Reporting Lab: [place] [facility] [address] [place] [address] Performin g Lab: [place] [facility] [address] [place] [address] [facility] COMPREHENSI VE METABOLIC PANEL PROTEIN [MASS/VOLUME] IN SERUM OR PLASMA 6.9 g/dL 6 - 8.6 03/05 Specimen Type: PLASMA No comment entered. Ordering Provider: LEE ANN FALL Report Released Date/Time : Sep 07, 2024 02:50 PM Reporting Lab: [place] [facility] [address] [place] [address] Performin g Lab: [place] [facility] [address] [place] [address] [facility] COMPREHENSI VE METABOLIC PANEL ALBUMIN [MASS/VOLUME] IN SERUM OR PLASMA 4.1 g/dL 3.4 - 5 03/05 Specimen Type: PLASMA No comment entered. Ordering Provider: LEE ANN FALL Report Released Date/Time : Sep 07, 2024 02:50 PM Reporting Lab: [place] [facility] [address] [place] [address] Performin g Lab: [place] [facility] [address] [place] [address] [facility] COMPREHENSI VE METABOLIC PANEL BILIRUBIN.TOT AL [MASS/VOLUME] IN SERUM OR PLASMA 0.5 mg/dL 0.2 - 1.2 03/05 Specimen Type: PLASMA No comment entered. Ordering Provider: LEE ANN FALL Report Released Date/Time : Sep 07, 2024 02:50 PM Reporting Lab: [place] [facility] [address] [place] [address] [facility] g Lab: [place] [facility] [address] [place] [address] [facility] COMPREHENSI VE METABOLIC PANEL ALKALINE PHOSPHATASE [ENZYMATIC ACTIVITY/VOLU ME] IN SERUM OR PLASMA 46 U/L 40 - 150 03/05 Specimen Type: PLASMA No comment entered. Ordering Provider: LEE ANN FALL Report Released Date/Time : Sep 07, 2024 02:50 PM Reporting Lab: [place] [facility] [address] [place] [address] [facility] g [facility]: [place] [facility] [address] [place] [address] 8 [facility] COMPREHENSI VE METABOLIC PANEL ASPARTATE AMINOTRANSFER ASE [ENZYMATIC ACTIVITY/VOLU ME] IN SERUM OR PLASMA 19 U/L 5 - 34 03/05 Specimen Type: PLASMA No comment entered. Ordering Provider: LEE ANN FALL Report Released Date/Time : Sep 07, 2024 02:50 PM Reporting Lab: [place] [facility] [address] [place] [address] [facility] g [facility]: [place] [facility] [address] [place] [address] 8 [facility] COMPREHENSI VE METABOLIC PANEL ALANINE AMINOTRANSFER ASE [ENZYMATIC ACTIVITY/VOLU ME] IN SERUM OR PLASMA 13 U/L 8 - 40 03/05 Specimen Type: PLASMA No comment entered. Ordering Provider: LEE ANN FALL Report Released Date/Time : Sep 07, 2024 02:50 PM Reporting Lab: [place] [facility] [address] [place] [address] [facility]formin g Lab: [place] [facility] [address] [place] [address] 8 [facility] COMPREHENSI VE METABOLIC PANEL GLOMERULAR FILTRATION RATE/1.73 SQ M.PREDICTED [VOLUME RATE/AREA] IN SERUM, PLASMA OR BLOOD BY CREATININE-BA SED FORMULA (CKD-EPI 2020) 97 03/05 Specimen Type: PLASMA No comment entered. Ordering Provider: LEE ANN FALL Report Released Date/Time : Sep 07, 2024 02:50 PM Reporting Lab: [place] [facility] [address] [place] [address] [facility] g [facility]: [place] [facility] [address] [place] [address] 8 [facility] CHOLESTEROL PANEL (PB) CHOLESTEROL [MASS/VOLUME] IN SERUM OR PLASMA 175 mg/dL 0 - 200 08/13 Specimen Type: PLASMA No comment entered. Ordering Provider: LEE ANN FALL Report Released Date/Time : Aug 11, 2024 07:18 AM Reporting Lab: [place] [facility] [address] [place] [address] [facility]formin g Lab: [place] [facility] [address] [place] [address] 8 [facility] CHOLESTEROL PANEL (PB) TRIGLYCERIDE [MASS/VOLUME] IN SERUM OR PLASMA 130 mg/dL 0 - 150 08/13 Specimen Type: PLASMA No comment entered. Ordering Provider: LEE ANN FALL Report Released Date/Time : Aug 11, 2024 07:18 AM Reporting Lab: [place] [facility] [address] [place] [address] [facility]formin g Lab: [place] [facility] [address] [place] [address] 8 [facility] CHOLESTEROL PANEL (PB) CHOLESTEROL IN LDL [MASS/VOLUME] IN SERUM OR PLASMA BY CALCULATION 108.0 mg/dL 08/13 Specimen Type: PLASMA No comment entered. Ordering Provider: LEE ANN FALL Report Released Date/Time : Aug 11, 2024 07:18 AM Reporting Lab: [place] [facility] [address] [place] [address] Performin g Lab: [place] [facility] [address] [place] [address] 8 [facility] CHOLESTEROL PANEL (PB) CHOLESTEROL IN HDL [MASS/VOLUME] IN SERUM OR PLASMA 41.0 mg/dL 40 08/13 H Specimen Type: PLASMA No comment entered. Ordering Provider: LEE ANN FALL Report Released Date/Time : Aug 11, 2024 07:18 AM Reporting Lab: [place] [facility] [address] [place] [address] [facility]formin g Lab: [place] [facility] [address] [place] [address] 8 [facility] CHOLESTEROL PANEL (PB) CHOLESTEROL IN HDL/CHOLESTER OL.TOTAL [MASS RATIO] IN SERUM OR PLASMA 23.4 25 08/13 Specimen Type: PLASMA No comment entered. Ordering Provider: LEE ANN FALL Report Released Date/Time : Aug 11, 2024 07:18 AM Reporting Lab: [place] [facility] [address] [place] [address] [facility]formin g Lab: [place] [facility] [address] [place] [address] [facility] HGA1C HEMOGLOBIN A1C/HEMOGLOBI N.TOTAL IN BLOOD 7.1 4.0 - 6.0 08/13 H Specimen Type: BLOOD No comment entered. 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 Ordering Provider: LEE ANN FALL Report Released Date/Time : Aug 11, 2024 07:18 AM Reporting Lab: [place] [facility] [address] [place] [address] Performin g Lab: [place] [facility] [address] [place] [address] 8 [facility] CBC ERYTHROCYTES [#/VOLUME] IN BLOOD BY AUTOMATED COUNT 5.40 10*6/u L 4.10 - 5.70 08/13 Specimen Type: BLOOD No comment entered. Ordering Provider: LEE ANN FALL Report Released Date/Time : Aug 11, 2024 07:18 AM Reporting Lab: [place] [facility] [address] [place] [address] 8 Performin g Lab: [place] [facility] [address] [place] [address] 8 [facility] CBC HEMOGLOBIN [MASS/VOLUME] IN BLOOD 15.5 g/dL 13.1 - 16.8 08/13 Specimen Type: BLOOD No comment entered. Ordering Provider: LEE ANN FALL Report Released Date/Time : Aug 11, 2024 07:18 AM Reporting Lab: [place] [facility] [address] [place] [address] 8 Performin g Lab: [place] [facility] [address] [place] [address] 8 [facility] CBC HEMATOCRIT [VOLUME FRACTION] OF BLOOD 51.1 38.2 - 48.4 08/13 H Specimen Type: BLOOD No comment entered. Ordering Provider: LEE ANN FALL Report Released Date/Time : Aug 11, 2024 07:18 AM Reporting Lab: [place] [facility] [address] [place] [address] Performin g Lab: [place] [facility] [address] [place] [address] 8 [facility] CBC MCV [ENTITIC VOLUME] BY AUTOMATED COUNT 94.6 fL 80.0 - 100.0 08/13 Specimen Type: BLOOD No comment entered. Ordering Provider: LEE ANN FALL Report Released Date/Time : Aug 11, 2024 07:18 AM Reporting Lab: [place] [facility] [address] [place] [address] Performin g Lab: [place] [facility] [address] [place] [address] 8 [facility] CBC MCH [ENTITIC MASS] BY AUTOMATED COUNT 28.7 pg 27.0 - 34.0 08/13 Specimen Type: BLOOD No comment entered. Ordering Provider: LEE ANN FALL Report Released Date/Time : Aug 11, 2024 07:18 AM Reporting Lab: [place] [facility] [address] [place] [address] 8 Performin g Lab: [place] [facility] [address] [place] [address] 8 [facility] CBC MCHC [MASS/VOLUME] BY AUTOMATED COUNT 30.3 g/dL 33.0 - 36.0 08/13 L Specimen Type: BLOOD No comment entered. Ordering Provider: LEE ANN FALL Report Released Date/Time : Aug 11, 2024 07:18 AM Reporting Lab: [place] [facility] [address] [place] [address] 8 Performin g Lab: [place] [facility] [address] [place] [address] 8 [facility] CBC PLATELETS [#/VOLUME] IN BLOOD BY AUTOMATED COUNT 231 10*3/u L 150 - 400 08/13 Specimen Type: BLOOD No comment entered. Ordering Provider: LEE ANN FALL Report Released Date/Time : Aug 11, 2024 07:18 AM Reporting Lab: [place] [facility] [address] [place] [address] Performin g Lab: [place] [facility] [address] [place] [address] 8 [facility] CBC PLATELET MEAN VOLUME [ENTITIC VOLUME] IN BLOOD BY AUTOMATED COUNT 10.1 fL 7.5 - 11.2 08/13 Specimen Type: BLOOD No comment entered. Ordering Provider: LEE ANN FALL Report Released Date/Time : Aug 11, 2024 07:18 AM Reporting Lab: [place] [facility] [address] [place] [address] 8 Performin g Lab: [place] [facility] [address] [place] [address] 8 [facility] CBC ERYTHROCYTE DISTRIBUTION WIDTH [RATIO] BY AUTOMATED COUNT 14.0 11.8 - 15.1 08/13 Specimen Type: BLOOD No comment entered. Ordering Provider: LEE ANN FALL Report Released Date/Time : Aug 11, 2024 07:18 AM Reporting Lab: [place] [facility] [address] [place] [address] Performin g Lab: [place] [facility] [address] [place] [address] 8 [facility] CBC LYMPHOCYTES/1 00 LEUKOCYTES IN BLOOD BY AUTOMATED COUNT 19.0 08/13 Specimen Type: BLOOD No comment entered. Ordering Provider: LEE ANN FALL Report Released Date/Time : Aug 11, 2024 07:18 AM Reporting Lab: [place] [facility] [address] [place] [address] Performin g Lab: [place] [facility] [address] [place] [address] 8 [facility] CBC MONOCYTES/100 LEUKOCYTES IN BLOOD BY AUTOMATED COUNT 11.5 08/13 Specimen Type: BLOOD No comment entered. Ordering Provider: LEE ANN FALL Report Released Date/Time : Aug 11, 2024 07:18 AM Reporting Lab: [place] [facility] [address] [place] [address] 8 Performin g Lab: [place] [facility] [address] [place] [address] 8 [facility] CBC NEUTROPHILS/1 00 LEUKOCYTES IN BLOOD BY AUTOMATED COUNT 61.5 08/13 Specimen Type: BLOOD No comment entered. Ordering Provider: LEE ANN FALL Report Released Date/Time : Aug 11, 2024 07:18 AM Reporting Lab: [place] [facility] [address] [place] [address] 8 Performin g Lab: [place] [facility] [address] [place] [address] 8 [facility] CBC EOSINOPHILS/1 00 LEUKOCYTES IN BLOOD BY AUTOMATED COUNT 6.7 08/13 Specimen Type: BLOOD No comment entered. Ordering Provider: LEE ANN FALL Report Released Date/Time : Aug 11, 2024 07:18 AM Reporting Lab: [place] [facility] [address] [place] [address] 8 Performin g Lab: [place] [facility] [address] [place] [address] 8 [facility] CBC BASOPHILS/100 LEUKOCYTES IN BLOOD BY AUTOMATED COUNT 0.9 08/13 Specimen Type: BLOOD No comment entered. Ordering Provider: LEE ANN FALL Report Released Date/Time : Aug 11, 2024 07:18 AM Reporting Lab: [place] [facility] [address] [place] [address] 8 Performin g Lab: [place] [facility] [address] [place] [address] 8 [facility] CBC LYMPHOCYTES [#/VOLUME] IN BLOOD BY AUTOMATED COUNT 1.42 10*3/u L 0.77 - 4.50 08/13 Specimen Type: BLOOD No comment entered. Ordering Provider: LEE ANN FALL Report Released Date/Time : Aug 11, 2024 07:18 AM Reporting Lab: [place] [facility] [address] [place] [address] 8 Performin g Lab: [place] [facility] [address] [place] [address] 8 [facility] CBC MONOCYTES [#/VOLUME] IN BLOOD BY AUTOMATED COUNT 0.86 10*3/u L 0.19 - 0.8 08/13 H Specimen Type: BLOOD No comment entered. Ordering Provider: LEE ANN FALL Report Released Date/Time : Aug 11, 2024 07:18 AM Reporting Lab: [place] [facility] [address] [place] [address] 8 Performin g Lab: [place] [facility] [address] [place] [address] 8 [facility] CBC NEUTROPHILS [#/VOLUME] IN BLOOD BY AUTOMATED COUNT 4.60 10*3/u L 2.10 - 8.00 08/13 Specimen Type: BLOOD No comment entered. Ordering Provider: LEE ANN FALL Report Released Date/Time : Aug 11, 2024 07:18 AM Reporting Lab: [place] [facility] [address] [place] [address] 8 [facility]formin g Lab: [place] [facility] [address] [place] [address] 8 [facility] CBC EOSINOPHILS [#/VOLUME] IN BLOOD BY AUTOMATED COUNT 0.50 10*3/u L 0.00 - 0.60 08/13 Specimen Type: BLOOD No comment entered. Ordering Provider: LEE ANN FALL Report Released Date/Time : Aug 11, 2024 07:18 AM Reporting Lab: [place] [facility] [address] [place] [address] 8 Performin g Lab: [place] [facility] [address] [place] [address] 8 [facility] CBC BASOPHILS [#/VOLUME] IN BLOOD BY AUTOMATED COUNT 0.07 10*3/u L 0.00 - 0.20 08/13 Specimen Type: BLOOD No comment entered. Ordering Provider: LEE ANN FALL Report Released Date/Time : Aug 11, 2024 07:18 AM Reporting Lab: [place] [facility] [address] [place] [address] 8 Performin g Lab: [place] [facility] [address] [place] [address] 8 [facility] CBC IMMATURE GRANULOCYTES/ 100 LEUKOCYTES IN BLOOD BY AUTOMATED COUNT 0.4 08/13 Specimen Type: BLOOD No comment entered. Ordering Provider: LEE ANN FALL Report Released Date/Time : Aug 11, 2024 07:18 AM Reporting Lab: [place] [facility] [address] [place] [address] 8 Performin g Lab: [place] [facility] [address] [place] [address] 8 [facility] CBC IMMATURE GRANULOCYTES [#/VOLUME] IN BLOOD BY AUTOMATED COUNT 0.03 10*3/u L 0.00 - 0.05 08/13 Specimen Type: BLOOD No comment entered. Ordering Provider: LEE ANN FALL Report Released Date/Time : Aug 11, 2024 07:18 AM Reporting Lab: [place] [facility] [address] [place] [address] 8 [facility]formin g Lab: [place] [facility] [address] [place] [address] 8 [facility] COMPREHENSI VE METABOLIC PANEL CREATININE [MASS/VOLUME] IN SERUM OR PLASMA 0.90 mg/dL 0.7 - 1.3 08/13 Specimen Type: PLASMA No comment entered. Ordering Provider: LEE ANN FALL Report Released Date/Time : Aug 11, 2024 07:18 AM Reporting Lab: [place] [facility] [address] [place] [address] [facility]formin g Lab: [place] [facility] [address] [place] [address] 8 [facility] COMPREHENSI VE METABOLIC PANEL UREA NITROGEN [MASS/VOLUME] IN SERUM OR PLASMA 16 mg/dL 9 - 25 08/13 Specimen Type: PLASMA No comment entered. Ordering Provider: LEE ANN FALL Report Released Date/Time : Aug 11, 2024 07:18 AM Reporting Lab: [place] [facility] [address] [place] [address] 8 [facility]formin g Lab: [place] [facility] [address] [place] [address] 8 [facility] COMPREHENSI VE METABOLIC PANEL GLUCOSE [MASS/VOLUME] IN SERUM OR PLASMA 90 mg/dL 72 - 99 08/13 Specimen Type: PLASMA No comment entered. Ordering Provider: LEE ANN FALL Report Released Date/Time : Aug 11, 2024 07:18 AM Reporting Lab: [place] [facility] [address] [place] [address] 8 [facility]formin g Lab: [place] [facility] [address] [place] [address] 8 [facility] COMPREHENSI VE METABOLIC PANEL SODIUM [MOLES/VOLUME ] IN SERUM OR PLASMA 141 meq/L 136 - 145 08/13 Specimen Type: PLASMA No comment entered. Ordering Provider: LEE ANN FALL Report Released Date/Time : Aug 11, 2024 07:18 AM Reporting Lab: [place] [facility] [address] [place] [address] 8 [facility]formin g Lab: [place] [facility] [address] [place] [address] 8 [facility] COMPREHENSI VE METABOLIC PANEL POTASSIUM [MOLES/VOLUME ] IN SERUM OR PLASMA 4.4 meq/L 3.5 - 5 08/13 Specimen Type: PLASMA No comment entered. Ordering Provider: LEE ANN FALL Report Released Date/Time : Aug 11, 2024 07:18 AM Reporting Lab: [place] [facility] [address] [place] [address] 8 [facility] g [facility]: [place] [facility] [address] [place] [address] 8 [place] [facility] COMPREHENSI VE METABOLIC PANEL CHLORIDE [MOLES/VOLUME ] IN SERUM OR PLASMA 101 meq/L 98 - 107 08/13 Specimen Type: PLASMA No comment entered. Ordering Provider: LEE ANN FALL Report Released Date/Time : Aug 11, 2024 07:18 AM Reporting Lab: [place] [facility] [address] [place] [address] 8 [facility]formin g Lab: [place] [facility] [address] [place] [address] 8 [facility] COMPREHENSI VE METABOLIC PANEL CARBON DIOXIDE, TOTAL [MOLES/VOLUME ] IN SERUM OR PLASMA 30 meq/L 22 - 31 08/13 Specimen Type: PLASMA No comment entered. Ordering Provider: LEE ANN FALL Report Released Date/Time : Aug 11, 2024 07:18 AM Reporting Lab: [place] [facility] [address] [place] [address] 8 [facility]formin g Lab: [place] [facility] [address] [place] [address] 8 [facility] COMPREHENSI VE METABOLIC PANEL CALCIUM [MASS/VOLUME] IN SERUM OR PLASMA 9.4 mg/dL 8.4 - 10.4 08/13 Specimen Type: PLASMA No comment entered. Ordering Provider: LEE ANN FALL Report Released Date/Time : Aug 11, 2024 07:18 AM Reporting Lab: [place] [facility] [address] [place] [address] 8 [facility]formin g [facility]: [place] [facility] [address] [place] [address] 8 [facility] COMPREHENSI VE METABOLIC PANEL PROTEIN [MASS/VOLUME] IN SERUM OR PLASMA 7.2 g/dL 6 - 8.6 08/13 Specimen Type: PLASMA No comment entered. Ordering Provider: LEE ANN FALL Report Released Date/Time : Aug 11, 2024 07:18 AM Reporting Lab: [place] [facility] [address] [place] [address] 8 [facility]formin g [facility]: [place] [facility] [address] [place] [address] 8 [facility] COMPREHENSI VE METABOLIC PANEL ALBUMIN [MASS/VOLUME] IN SERUM OR PLASMA 3.9 g/dL 3.4 - 5 08/13 Specimen Type: PLASMA No comment entered. Ordering Provider: LEE ANN FALL Report Released Date/Time : Aug 11, 2024 07:18 AM Reporting Lab: [place] [facility] [address] [place] [address] 8 [facility]formin g Lab: [place] [facility] [address] [place] [address] 8 [facility] COMPREHENSI VE METABOLIC PANEL BILIRUBIN.TOT AL [MASS/VOLUME] IN SERUM OR PLASMA 0.4 mg/dL 0.2 - 1.2 08/13 Specimen Type: PLASMA No comment entered. Ordering Provider: LEE ANN FALL Report Released Date/Time : Aug 11, 2024 07:18 AM Reporting Lab: [place] [facility] [address] [place] [address] 8 Performin g Lab: [place] [facility] [address] [place] [address] 8 [facility] COMPREHENSI VE METABOLIC PANEL ALKALINE PHOSPHATASE [ENZYMATIC ACTIVITY/VOLU ME] IN SERUM OR PLASMA 66 U/L 40 - 150 08/13 Specimen Type: PLASMA No comment entered. Ordering Provider: LEE ANN FALL Report Released Date/Time : Aug 11, 2024 07:18 AM Reporting Lab: [place] [facility] [address] [place] [address] 8 Performin g Lab: [place] [facility] [address] [place] [address] 8 [facility] COMPREHENSI VE METABOLIC PANEL ASPARTATE AMINOTRANSFER ASE [ENZYMATIC ACTIVITY/VOLU ME] IN SERUM OR PLASMA 20 U/L 5 - 34 08/13 Specimen Type: PLASMA No comment entered. Ordering Provider: LEE ANN FALL Report Released Date/Time : Aug 11, 2024 07:18 AM Reporting Lab: [place] [facility] [address] [place] [address] 8 [facility] g [facility]: [place] [facility] [address] [place] [address] 8 [facility] COMPREHENSI VE METABOLIC PANEL ALANINE AMINOTRANSFER ASE [ENZYMATIC ACTIVITY/VOLU ME] IN SERUM OR PLASMA 20 U/L 8 - 40 08/13 Specimen Type: PLASMA No comment entered. Ordering Provider: LEE ANN FALL Report Released Date/Time : Aug 11, 2024 07:18 AM Reporting Lab: [place] [facility] [address] [place] [address] Performin g Lab: [place] [facility] [address] [place] [address] [facility] COMPREHENSI VE METABOLIC PANEL GLOMERULAR FILTRATION RATE/1.73 SQ M.PREDICTED [VOLUME RATE/AREA] IN SERUM, PLASMA OR BLOOD BY CREATININE-BA SED FORMULA (CKD-EPI 2020) 95 08/13 Specimen Type: PLASMA No comment entered. Ordering Provider: LEE ANN FALL Report Released Date/Time : Aug 11, 2024 07:18 AM Reporting Lab: [place] [facility] [address] [place] [address] Performin g Lab: [place] [facility] [address] [place] [address] [facility] Vital Signs Combined list of inpatient and outpatient Vital Signs from Department of Defense and Veterans Affairs, ranging from 12 months to all on record, depending upon the facility. Vital Sign Value Date Comments Source SYSTOLIC BLOOD PRESSURE 138 01/04/2025 12:05:00 [facility] D[facility] 84 01/04/2025 12:05:00 [facility] TEMPERATURE 97.5 01/04/2025 12:05:00 [facility] PULSE 78 01/04/2025 12:05:00 [facility] SYSTOLIC BLOOD PRESSURE 174 12/02/2024 08:21:00 [facility] DIASTOLIC BLOOD PRESSURE 84 12/02/2024 08:21:00 [facility] P[facility]SE OXIMETRY 89 12/02/2024 08:21:00 [facility] WEIGHT 365.6 12/02/2024 08:21:00 [facility] BMI 50 kg/m2 12/02/2024 08:21:00 [facility] PAIN 7 12/02/2024 08:21:00 [facility] HEIGHT 72.0 12/02/2024 08:21:00 [facility] PULSE 80 12/02/2024 08:21:00 [facility] RESPIRATION 16 12/02/2024 08:21:00 [facility] SYSTOLIC BLOOD PRESSURE 133 10/30/2024 13:28:00 [facility] DIASTOLIC BLOOD PRESSURE 78 10/30/2024 13:28:00 [facility] TEMPERATURE 98 10/30/2024 13:28:00 [facility] PULSE 68 10/30/2024 13:28:00 [facility] SYSTOLIC BLOOD PRESSURE 123 09/30/2024 15:53:00 [facility] DIASTOLIC BLOOD PRESSURE 79 09/30/2024 15:53:00 [facility] TEMPERATURE 98.1 09/30/2024 15:53:00 [facility] PULSE 62 09/30/2024 15:53:00 [facility] [place] [facility] SYSTOLIC BLOOD PRESSURE 152 09/14/2024 11:53:37 [place] [facility] DIASTOLIC BLOOD PRESSURE 84 09/14/2024 11:53:37 [place] [facility] PULSE OXIMETRY 96 09/14/2024 11:53:37 [facility] PULSE 69 09/14/2024 11:53:37 [place] [facility] RESPIRATION 20 09/14/2024 11:53:37 [facility] [place] [facility] Encounters Combined list of: 1) Encounters from Department of Veterans Affairs facilities going backup to the last 18 months, not all VA inpatient encounters are included; 2) Encounters from the Department of Defense facilities going backup to 280 months. Location Location Details Encounter Type Encounter Number Reason For Visit Attending Provider ADM Date DC Date Status Disposition Source [facility] Outpatient Encounter [id number] 08/13 [facility] [place] [facility] OFFICE O/P NEW MOD 45 MIN [id number] Diagnos is: ICD-10- CM Z00.01 Encount er for general adult medical exam w abnorma l finding s ROSANNA FALL R 08/13 [facility] Outpatient Encounter [id number] 08/18 [facility] Outpatient Encounter [id number] ROSANNA FALL Ed 09/07 [facility] Outpatient Encounter [id number] 09/11 [facility] SYS BP LESS [id number] Diagnos is: ICD-10- CM I10 Essenti al (primar y) hyperte ALOK Harvey 09/14 [facility] OFF/OP EST JANUARY X REQ PHY/QHP [id number] Diagnos is: ICD-10- CM M25.569 Pain in unspeci fied knee CUSTRED,TO RRI J 09/30 [facility] OFF/OP EST MAY X REQ PHY/QHP [id number] Diagnos is: ICD-10- CM M25.562 Pain in left knee CUSTRED,TO RRI J 10/30 [facility] OFFICE O/P EST SF 10 MIN [id number] Diagnos is: ICD-10- CM M17.12 Unilate ral primary osteoar thritis , left knee Tremaine NUNEZ 12/02 [facility] OFF/OP EST MAY X REQ PHY/QHP [id number] Diagnos is: ICD-10- CM M25.562 Pain in left knee CUSTRED,TO RRI J 01/04 [facility] OFFICE O/P EST MOD 30 MIN [id number] Diagnos is: ICD-10- CM M25.562 Pain in left knee JESUSITA ORTA 01/04 [facility] Outpatient Encounter [id number] 01/29 [facility] Outpatient Encounter [id number] 02/01 [facility] Outpatient Encounter [id number] 02/08 [facility] Outpatient Encounter [id number] 02/17 [facility] Outpatient Encounter [id number] 02/22 [facility] Outpatient Encounter [id number] 02/26 [facility] Outpatient Encounter [id number] ROSANNA FALL 03/05 [facility] En[facility] [id number] 04/21 [facility] Outpatient Encounter [id number] 04/22 [facility] Social History Combined list of available smoking, tobacco, and other social history from Department of Defense and Veterans Affairs facilities. Social History Type Response Date Comment Sourc e Tobacco smoking status NHIS VA-TOBACCO USE FORMER CIGARETTES 08/13/2024 [place] [facility] History of tobacco use VA-TOBACCO USE FO RMER OTHER TYPE 08/13/2024 [facility] Plan of Care List of future care activities from Department of Veterans Affairs facilities. Additional future care activities may be listed in the Assessment and Plan section. Date/Time Care Activity Care Activity Detail Facili ty 08/02/2025 AMBULATORY - MEDICINE [facility]ICI [facility]
[2025-04-27 17:39] VITALS: BP 134/62; PULSE 99; RESP 16; TEMP 37.1; O2SAT 94
--- OUTSIDE RECORDS SUMMARY | 2025-04-27 17:39 | XMS_ITS | Encounter Summary ---
Author Organization [facility] Address [address] [place] [address] Care Team Providers Care Entry Examiner Name Role Phone Unavailable Primary Care Provider Unavailabl e Encounter Details Date Type Department Care Team (Latest Contact Info) Description 06/30/2007 Outpatient Historical [address] [address] Milena Porter, LINEN ROOM CUSTODIAN NO ADDRESS ON FILE Rash and Other Nonspecific Skin Eruption (Primary Dx) Social History Tobacco Use Types Packs/Day Years Used Date Smoking Tobacco: Never Assessed Sex and Gender Information Value Date Recorded Sex Assigned at Not on file Legal Sex Male 3:05 AM CARD HAND Gender Identity Not on file Sexual Orientation Not on file documented as of this encounter Plan of Treatment Not on file documented as of this encounter Visit Diagnoses Diagnosis Rash and other nonspecific skin eruption- Primary documented in this encounter
--- OUTSIDE RECORDS SUMMARY | 2025-04-27 17:39 | XMS_ITS | Clinical Summary ---
Author Organization [facility] Address [address] [address] [place] [address] Phone Care Team Providers Care Touch Up Edger Name Role Phone Maynor Quinteros MD Primary Care Provider [phone] Allergies Active Allergy Reactions Criticality Noted Date Comments Levofloxacin Shortness of Breath/Wheezing High 07/27 Tetracyclines Rash Low 07/27/2023 Medications lisinopril-hydr oCHLOROthiazide (ZESTORETIC) 20-12.5 mg tablet Take 1 Tablet by mouth daily. Active glucosamine-cho ndroitin (ARTHX DS) 500-400 mg Capsule Take 2 Capsules by mouth daily. Active thgv-bvwo-dij-y kc-mfr-pkpj-hor (Tumersaid) [phone] mg Tablet Take 1 Tablet by mouth daily. 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 Gender Identity Not on file Sexual Orientation Not on file Last Filed Vital Signs Vital Sign Reading Time Taken Comments Blood Pressure 172/70 07/27/2023 4:45 AM CDT Pulse 78 07/27/2023 4:45 AM CDT Temperature 36.6 C (97.8 F) 07/27/2023 3:14 AM CDT Respiratory Rate 18 07/27/2023 4:45 AM CDT Oxygen Saturation 93% 07/27/2023 4:45 AM CDT Inhaled Oxygen Concentration - - Weight 158.8 kg (350 lb) 07/27/2023 3:14 AM CDT Height 182.9 cm (6') 07/27/2023 3:14 AM CDT Body Mass Index 47.47 07/27/2023 3:14 AM CDT Plan of Treatment Health Maintenance Due Date Last Done Comments DTAP/TDAP/TD VACCINES (1 - Tdap) 1978 COLORECTAL SCREENING 2004 Colorectal Cancer Screening 2004 FIT-DNA Q 3 years 2004 FIT/FOBT Q 1 year 2004 Flex Sig/CT Colonography Q 5 years 2004 PNEUMOCOCCAL VACCINE 50+ YEARS (1 of 1 - PCV) 08/30/20 09 ZOSTER VACCINE (1 of 2) 2009 INFLUENZA VACCINE (#1) 2025 RSV VACCINE (60+ or ) (1 - 1-dose 75+ series) 2034 Care Teams Touch Up Edger Relationship Specialty Start Date End Date Maynor Quinteros MD [address] [place] [address] PCP - General Family Practice 05/23/22
--- OUTSIDE RECORDS SUMMARY | 2025-04-27 17:39 | XMS_ITS | Encounter Summary ---
Author Organization [facility] Address [address] [place] [address] Care Team Providers Care Reheater Helper Name Role Phone Unavailable Primary Care Provider Unavailabl e Encounter Details Date Type Department Care Team (Latest Contact Info) Description 03/22/2006 Outpatient Historical [facility] [address] [place] [phone] Heriberto Tejada V., DO [address] [place] [id number] Pain in Joint, Shoulder Region (Primary Dx) Social History Tobacco Use Types Packs/Day Years Used Date Smoking Tobacco: Never Assessed Sex and Gender Information Value Date Recorded Sex Assigned at Not on file 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
--- OUTSIDE RECORDS SUMMARY | 2025-04-27 17:39 | XMS_ITS | Encounter Summary ---
Author Organization [facility] Address [address] [place] [address] Care Team Providers Care Plastics Design Engineer Name Role Phone Unavailable Primary Care Provider Unavailabl e Encounter Details Date Type Department Care Team (Latest Contact Info) Description 06/16/2007 Outpatient Historical [address] [address] Milena Porter, PHOTOGRAPHER APPRENTICE LITHOGRAPHIC NO ADDRESS ON FILE Rash and Other Nonspecific Skin Eruption (Primary Dx); Unspecified Venous (Peripheral) Insufficiency; Obesity, Unspecified Social History Tobacco Use Types Packs/Day Years Used Date Smoking Tobacco: Never Assessed Sex and Gender Information Value Date Recorded Sex Assigned at Not on file 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
--- OUTSIDE RECORDS SUMMARY | 2025-04-27 17:39 | XMS_ITS | Encounter Summary ---
Author Organization [facility] Address [address] [place] [address] Care Team Providers Care Long Term Care Phlebotomist Name Role Phone Unavailable Primary Care Provider Unavailabl e Encounter Details Date Type Department Care Team (Latest Contact Info) Description 06/02/2007 Outpatient Historical [address] [address] Milena Porter, BANKING SPECIALIST NO ADDRESS ON FILE Edema (Primary Dx) Social History Tobacco Use Types Packs/Day Years Used Date Smoking Tobacco: Never Assessed Sex and Gender Information Value Date Recorded Sex Assigned at Not on file Legal Sex Male 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
--- OUTSIDE RECORDS SUMMARY | 2025-04-27 17:39 | XMS_ITS | Clinical Summary ---
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
--- NOTE | 2025-04-27 17:48 | XRR_ITS ---
PROCEDURE INFORMATION: Exam: XR Left Knee Exam date and time: 04/27/2025 5:58 PM Age: 64 years old Clinical indication: Pain; Prior surgery; Surgery date: 3-7 days post-operative; Surgery type: Left knee replacement; Additional info: Pain, bleeding, S/P tka TECHNIQUE: Imaging protocol: Radiologic exam of the left knee. Views: 1 or 2 views. COMPARISON: CR XR knee LT 1-2V [id number] 04/21/2025 12:59 PM FINDINGS: Bones/joints: A knee prosthesis is well seated and well aligned. I see no fracture. Soft tissues: Soft tissue swelling is noted anteriorly and there are skin armaan present. XR/XR knee LT 1-2V [id number] IMPRESSION: Intact postoperative knee prosthesis with persistent anterior soft tissue swelling
[2025-04-27 18:10] LABS: Hematocrit 35.7 % (37-53); Hemoglobin 11.20 g/dL (11.27-16.99); Mean Corpuscular HGB Conc 31.4 g/dL (30-55); Mean Corpuscular Hemoglobin 28.6 pg (27-33); Mean Corpuscular Volume 91.1 fl (82-101); Nucleated Red Blood Cells % 0 %; Platelet Count 369 10^3/cmm (157-399); Red Blood Count 3.92 10^6/uL (3.85-5.65); White Blood Count 14.51 10^3/uL (3.29-11.43)
[2025-04-27 18:23] LABS: INR 0.84 (0.8-1.2); Prothrombin Time 12.10 SECONDS (12.1-14.9)
[2025-04-27 18:25] LABS: Alanine Aminotransferase 39 U/L (0-41); Albumin Level 3.5 g/dL (3.5-5.2); Alkaline Phosphatase 102 U/L (40-130); Anion Gap 15.5 (5-19); Aspartate Amino Transferase 20 U/L (0-40); Blood Urea Nitrogen 21 mg/dL (8-23); Calcium 9.2 mg/dL (8.5-10.5); Carbon Dioxide 28 mmol/L (22-29); Chloride 100 mmol/L (98-107); Creatinine Clr Calc Pharmacy 146.8547; Globulin 3.5 g/dL (1.3-4.6); Glucose 127 mg/dL (65-115); Osmolality Calculated 293 mOsm/kg (285-295); Potassium 4.5 mmol/L (3.5-5.1); Sodium 139 mmol/L (136-145); Total Protein 7.0 g/dL (6.6-8.7)
[2025-04-27 18:31] LABS: Glucose Urine UA Negative (Normal); Nitrate Urine Negative (Negative); Specific Gravity, Urine 1.020 (1.005-1.030)
[2025-04-27 18:36] LABS: Add Urine Microscopic? YES
[2025-04-27 19:00] VITALS: BP 103/61; PULSE 61; RESP 16; O2SAT 97
--- NOTE | 2025-04-27 19:12 | W.ED.EXTPRO ---
HPI - Extremity Problem General: Chief complaint: Extremity Injury, Lower Stated complaint: L knee pain, bleeding, 6 days post op replacement Time Seen by Provider: 04/27/25 17:48 History of Present Illness: Patient is a 64-year-old gentleman status post left TKA 6 days ago, presents to ED with swelling, redness. He was seen by home health care RN today, that rewrapped his knee, and encouraged him to come to the emergency room. Patient states that he did call his primary surgeon, Dr. Tristan. He has not had any fever, chills. He did think he overdid it yesterday and had more swelling. He does not have any active bleeding at site since changing his knee wrapping with home health care today. He states the pain is worse with extension of his left leg. His main complaint is the swelling and the bleeding. Denies any lightheadedness, dizziness, tachycardia, palpitations Associated symptoms: Deny chest pain, fever(s) or rash Related Data Home Medications ?Medication ?Instructions ?Recorded ?Confirmed lisinopril 10 1 tab PO BID 03/15/25 04/21/25 mg-hydrochlorothiazide 12.5 mg tablet tamsulosin 0.4 mg capsule 0.4 mg PO DAILY 03/15/25 04/21/25 acetaminophen 500 mg tablet 1,500 mg PO BID 04/20/25 04/21/25 diclofenac sodium 1 % topical gel 2 g topical QID 04/20/25 04/21/25 hydroxyzine HCl 25 mg tablet 25 mg PO BEDTIME 04/20/25 04/21/25 metformin 1,000 mg tablet 500 mg PO BIDWMEAL 04/20/25 04/21/25 Previous Rx's ?Medication ?Instructions ?Recorded hydrocodone 5 mg-acetaminophen 325 1 tab PO Q6H PRN pain #30 tabs 04/22/25 mg tablet sulfamethoxazole 800 1 tab PO Q12H 10 days #20 tabs 04/27/25 mg-trimethoprim 160 mg tablet (Bactrim DS) Allergies Allergy/AdvReac Type Severity Reaction Status Date / Time tetracycline Allergy Severe rash Verified 04/21/25 08:56 Review of Systems General: Reports: 10 or more systems reviewed and unremarkable except in HPI and below Const: Denies: fever(s) or chills Eyes: Denies: change in vision or blurry vision ENMT: Denies: throat pain or mouth pain Card: Denies: chest pain or palpitations Resp: Denies: dyspnea or non-productive cough GI: Denies: abdominal pain, nausea or vomiting : Denies: flank pain or difficulty urinating Musc: Reports: extremity pain, extremity swelling, joint pain, joint swelling, joint redness, joint warmth, joint stiffness and limited range of motion; Denies: neck pain, muscle weakness or deformity Skin/Breast: Reports: erythema; Denies: rash or pruritus Neuro: Reports: weakness in extremities; Denies: headache(s), numbness in extremities, sensory changes, frequent falls, dizziness or vertigo PFSH ED PFSH: Social History Smoking and tobacco/nicotine status: never used tobacco/nicotine Physical Exam Const: COMMON NORMALS: no acute distress, average body habitus and patient oriented x3 HENMT: COMMON NORMALS: normocephalic and atraumatic HEAD & SCALP: normocephalic and atraumatic Lymph: LYMPHATIC: no lymphadenopathy noted Chest: COMMONS NORMALS: normal inspection of the chest and normal palpation of entire chest wall Resp: COMMON NORMALS: normal respiratory effort and clear to auscultation bilaterally AUSCULTATION: clear to auscultation bilaterally Cardio: COMMON NORMALS: regular rate and regular rhythm RATE: regular rate RHYTHM: regular rhythm GI: COMMON NORMALS: Normal to inspection, nondistended, normoactive bowel sounds present and Soft to palpation PALPATION: Yes Soft to palpation : COMMON NORMALS: Yes no CVA tenderness BLADDER/KIDNEY EXAM: Yes no CVA tenderness Back/Pelvis: COMMON NORMALS: no CVA tenderness Extremity: LEFT LOWER EXTREMITY: Yes knee joint Left knee: Yes inspection (Midline redness, edema, old hematoma), Yes palpation (Mild tenderness) and Yes ROM (Range of motion decreased due to edema, however present) Neuro: COMMON NORMALS: patient oriented x3 Psych: COMMON NORMALS: mental status grossly normal and Normal thought process present THOUGHT PROCESS: Normal thought process present Course Vital Signs: Vital signs: Vital Signs Temperature 98.8 F 04/27/25 17:39 Pulse Rate 99 04/27/25 17:39 Respiratory Rate 16 04/27/25 17:39 Blood Pressure 134/62 04/27/25 17:39 Pulse Oximetry 94 04/27/25 17:39 Oxygen Delivery Me thod Room Air 04/27/25 17:39 MDM - Extremity (Nontraumatic) Medical Decision Making Patient is a 64-year-old gentleman status post left TKA 6 days ago. Discussed the case with his primary surgeon, Dr. Tristan that is currently out of town. Dr. Tristan notes the edema and old hematoma that was noted by exam by myself as well. Recommends following up with Mindy Conte while he is out of town. As well, will place him on Bactrim given the warmth that is most likely benign; however status post Ortho surgery, will place on Bactrim. As well hemoglobin decreased from 13.9-11.2 which is insignificant with recent surgery. No concern of exsanguination when evaluating the knee at bedside. The leukocytosis could be secondary to demargination, however given the recent surgery, will treat as noted. Lab Data 04/27/25 17:58 04/27/25 17:58 Radiology Impressions Knee X-Ray 04/27/25 17:48 IMPRESSION: Intact postoperative knee prosthesis with persistent anterior soft tissue swelling Laboratory Results WBC 14.51 10^3/uL (3.29-11.43) H 04/27/25 17:58 RBC 3.92 10^6/uL (3.85-5.65) 04/27/25 17:58 Hgb 11.20 g/dL (11.27-16.99) L 04/27/25 17:58 Hct 35.7 % (37-53) L 04/27/25 17:58 MCV 91.1 fl (82-101) 04/27/25 17:58 MCH 28.6 pg (27-33) 04/27/25 17:58 MCHC 31.4 g/dL (30-55) 04/27/25 17:58 RDW 14.1 % (12.1-15.1) 04/27/25 17:58 Plt Count 369 10^3/cmm (157-399) 04/27/25 17:58 MPV 9.3 fL (7.4-10.4) 04/27/25 17:58 Neut % (Auto) 76.0 % 04/27/25 17:58 Lymph % (Auto) 10.5 % 04/27/25 17:58 Sunflower % (Auto) 7.8 % 04/27/25 17:58 Eos % (Auto) 4.1 % 04/27/25 17:58 Baso % (Auto) 0.5 % 04/27/25 17:58 Neut # (Auto) 11.04 10^3/uL (1.8-7.7) H 04/27/25 17:58 Lymph # (Auto) 1.5 10^3/uL (0.8-4.8) 04/27/25 17:58 Sunflower # (Auto) 1.1 10^3/uL (0.2-0.9) H 04/27/25 17:58 Eos # (Auto) 0.6 10^3/uL (0.0-0.8) 04/27/25 17:58 Baso # (Auto) 0.1 10^3/uL (0.0-0.1) 04/27/25 17:58 Nucleated RBC % (auto) 0 % 04/27/25 17:58 Nucleated RBCs # 0.0 /100WBC 04/27/25 17:58 PT 12.10 SECONDS (12.1-14.9) 04/27/25 17:58 INR 0.84 (0.8-1.2) 04/27/25 17:58 Sodium 139 mmol/L (136-145) 04/27/25 17:58 Potassium 4.5 mmol/L (3.5-5.1) 04/27/25 17:58 Chloride 100 mmol/L (98-107) 04/27/25 17:58 Carbon Dioxide 28 mmol/L (22-29) 04/27/25 17:58 Anion Gap 15.5 (5-19) 04/27/25 17:58 BUN 21 mg/dL (8-23) 04/27/25 17:58 Creatinine 0.8 mg/dL (0.7-1.2) 04/27/25 17:58 GFR Calculation 97.0 mL/min (90-130) 04/27/25 17:58 Glucose 127 mg/dL (65-115) H 04/27/25 17:58 Calculated Osmolality 293 mOsm/kg (285-295) 04/27/25 17:58 Calcium 9.2 mg/dL (8.5-10.5) 04/27/25 17:58 Total Bilirubin 0.7 mg/dL (0.15-1.2) 04/27/25 17:58 AST 20 U/L (0-40) 04/27/25 17:58 ALT 39 U/L (0-41) 04/27/25 17:58 Alkaline Phosphatase 102 U/L (40-130) 04/27/25 17:58 C-Reactive Protein 76.4 mg/L (0.0-4.9) H 04/27/25 17:58 Total Protein 7.0 g/dL (6.6-8.7) 04/27/25 17:58 Albumin 3.5 g/dL (3.5-5.2) 04/27/25 17:58 Globulin 3.5 g/dL (1.3-4.6) 04/27/25 17:58 Urine Color Yellow (Yellow) 04/27/25 17:50 Urine Appearance Clear (CLEAR) 04/27/25 17:50 Urine pH 5.5 (5-7) 04/27/25 17:50 Ur Specific [place] 1.020 (1.005-1.030) 04/27/25 17:50 Urine Protein Negative (Negative) 04/27/25 17:50 Urine Glucose (UA) Negative (Normal) 04/27/25 17:50 Urine Ketones Negative (Negative) 04/27/25 17:50 Urine Blood Negative (Negative) 04/27/25 17:50 Urine Nitrate Negative (Negative) 04/27/25 17:50 Urine Bilirubin Negative (Negative) 04/27/25 17:50 Urine Urobilinogen 1.0 mg/dL (Negative) 04/27/25 17:50 Ur Leukocyte Esterase Negative (Negative) 04/27/25 17:50 Urine RBC 0-2 /hpf (0-2) 04/27/25 17:50 Urine WBC 0-5 /hpf (0-5) 04/27/25 17:50 Ur Squamous Epith Cells 0-5 /hpf (0-5) 04/27/25 17:50 Amorphous Sediment Not Reportable 04/27/25 17:50 Urine Bacteria None seen /hpf (NONE) 04/27/25 17:50 Hyaline Casts 2.46 /lpf 04/27/25 17:50 All radiology interpretation(s) finalized by discharge ED provider radiology interpretation(s): Soft tissue swelling Discharge Plan Discharge Patient Disposition: Home Clinical Impression: Pain and swelling of left knee, Leukocytosis (leucocytosis) Condition: Stable Prescriptions: New sulfamethoxazole-trimethoprim [Bactrim DS] 800-160 mg tablet 1 tab PO Q12H 10 Days Qty: 20 0RF No Action tamsulosin 0.4 mg capsule 0.4 mg PO DAILY lisinopril-hydrochlorothiazide 10-12.5 mg tablet 1 tab PO BID metformin 1,000 mg Tablet 500 mg PO BIDWMEAL hydroxyzine HCl 25 mg Tablet 25 mg PO BEDTIME diclofenac sodium 1 % Gel 2 g TOPICAL QID Rx Instructions: apply to single elbow, wrist or hand; for hand includes palm/fingers/back of hand acetaminophen 500 mg Tablet 1,500 mg PO BID hydrocodone-acetaminophen 5-325 mg tablet 1 tab PO Q6H PRN (Reason: pain) Qty: 30 0RF Discharge Orders: Discharge ED (Routine); Ordered 04/27/25 Ordered By: Cailin Carver Referrals: Mindy Conte FNP-BC [Physician Theater Set Production Designer, Orthopedics] Referral Note: s/p tka/ion-would like f/up tomorrow please Lulu Alves MD [Primary Care Provider, Family Practice] Discharge Diet: Low Salt Discharge Activity: Use walker/crutches as instructed Patient Instructions: Total Knee Replacement (DC), Patient Portal & Gianna Instructions, P.R.I.C.E. Treatment (ED) Activity Restrictions/Additional Instructions: Continue ice, elevation, and compression Call the office in the morning. Dr. Tristan would like you to be seen by Mindy Conte tomorrow Your antibiotics have been sent to the pharmacy. I obtained in the a.m. Take as directed. Utilize a probiotic or active culture yogurt to avoid infectious diarrhea. Take them with you to the office for follow-up with the nurse practitioner. Return to ED for increasing redness, increasing drainage, fever greater than 100.4 ?F. Print Language: Divehi Coding Level of Care Code ED Bar Machine Operator Multiple Spindle for Marlene Mcgregor
[2025-04-27] MEDS: sulfamethoxazole-trimeth DS 160-800 mg Tablet 1 TAB PO (19:26)
[2025-04-27 20:24] VITALS: BP 135/89; PULSE 82; RESP 18; O2SAT 94
== END 2025-04-27 19:48 | disposition home or self-care (01) ==
PROVIDERS: Emergency Provider Physician Assistant; PCP Family Medicine
DX: M25.562 Pain in left knee (principal); R60.0 Localized edema; D72.829 Elevated white blood cell count, unspecified; Z79.84 Long term (current) use of oral hypoglycemic drugs; Z96.652 Presence of left artificial knee joint
CPT/HCPCS: 36415; 73560; 80053; 81001; 85025; 85610; 86140; 99284; J9999

== ENCOUNTER 2025-04-28 23:55 | Inpatient (IN) | payer OTHER, SELFPAY ==
--- OUTSIDE RECORDS SUMMARY | 2025-04-23 03:00 | XMS_ITS | Encounter Summary ---
Author Name [facility] Address [address] [place] [address] Care Team Providers Care Vault Person Name Role Phone ROSANNA FALL Primary Care Provider Unavailabl e Insurance Providers: [...] PART A Aug 23, 2024 PART A [id number] [phone] [employer] PATIENT MEDICARE (WNR) MEDICARE (M) PART B Aug 23, 2024 PART B [id number] [employer] PATIENT Selected Encounter This section includes the information on record at [place] for the Encounter. Date/Time Encounter Type Encounter Description Reason Pro vider Source Apr 23, 2025 08:00 AM Outpatient Encounter [facility] CONSULT [facility] Encounter Template Text not used by [place] Plan of Treatment: Future Appointments (+ 6 [...] 20 appointments. The data comes from all [facility]. Appointment Date/Time Appointment Type Appointme nt Facility Name Aug 02, 2025 09:00 AM AMBULATORY - MEDICINE [facility] Aug 09, 2025 09:15 AM AMBULATORY MEDICINE [facility] Aug 09, 2025 09:16 AM AMBULATORY MEDICINE [facility] Active, Pending, and Scheduled Orders This section includes a listing of several types of active, pending, and scheduled orders, including clinic medications orders, diagnostic test orders, procedure orders and consult orders; where the start date of the order is 45 days before the date of the Encounter or 45 days after the date of theEncounter. The data comes from all [facility]. Test Date/Time Test Type Test Details Facility Name Apr 22, 2025 12:00 PM Consult Order [facility] 657A4 Cons Steam Conditioning Operator's Choice [facility] Encounter Notes: All associated encounter notes This section contains the clinical notes associated to the Encounter. Date/Time Encounter Note(s) Provider Source Apr 28, 2025 03:55 PM TELEPHONE ENCOUNTE R NOTE: LOCAL TITLE: TELEPHONE NOTE STANDARD TITLE: TELEPHONE ENCOUNTER NOTE DATE OF NOTE: APR 28, 2025@15:55 ENTRY DATE: APR 28, 2025@15:55:29 AUTHOR: EDUARDO ANDERSON EXP COSIGNER: URGENCY: STATUS: COMPLETED Kamila with [facility] called to relay the following to Primary care: This is very nice but had his knee done a week ago. He is still bleeding from his incision. When changing dressing today ABD was saturated with blood. PT went and seen yesterday for eval. Sent to [facility] ER last night due to bleeding. They just wrapped his knee back up and sent him home. They told him to follow up with Ortho but he doesn't want to because the ER just wrote him off so he feels like ortho will do the same. He has a follow up next week with them and says he will go see them then. The knee was showing swelling but hardware is ok. His armaan are intact. 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 He is not using ice at all, not elevating his leg due to his recliner broken. [place] is Requesting toilet riser as well due to the intense knee pain when getting on and off the toilet /yeni/ Eduardo LUGO, RN Damon Hamlinhing [facility] Signed: 04/28/2025 16:06 Receipt Acknowledged By: * AWAITING SIGNATURE * JOCY GARZON * AWAITING SIGNATURE * ROSANNA FALL GARAH D [facility]
--- OUTSIDE RECORDS SUMMARY | 2025-04-28 18:57 | XMS_ITS | Continuity of Care Document ---
Author Name [facility] Organization [facility] Care Team Providers Care Peer Specialist Name Role Phone [facility] Unavailable Unavailable Problems Combined list of problems from Department of Defense and Veterans Affairs facilities. It does not include entries that were removed or entered in error. Problem Status Onset Date Problem Type Date of Resolution Comments Source Allergic Rhinitis ([facility] [id number]) Active Condition [place] [facility] Benign Prostatic Hypertrophy without Outflow Obstruction ([facility] [id number]) Active Condition [place] [facility] Diabetes Mellitus Type 2 ([facility] [id number]) Active Condition [place] [facility] HTN - Hypertension ([facility] [id number]) Active Condition [place] [facility] Low Back Pain ([facility] [id number][facility] Active [place] [facility] Obesity ([facility] [id number]) Active Condition [place] [facility] Pain of Left Knee Region ([facility] [id number]) Active Condition [place] [facility] Psoriasis ([facility] [id number]) Active Condition [place] [facility] Right knee pain Active Condition [place] [facility] Diagnosis: ICD-10-CM M25.562 Pain in left knee Active Diagnosis [facility] [place] [facility] Diagnosis: ICD-10-CM M17.12 Unilateral primary osteoarthritis, left knee Active Diagnosis [facility] Diagnosis: ICD-10-CM M25.569 Pain in unspecified knee Active Diagnosis [facility] [place] [facility] Diagnosis: ICD-10-CM I10 Essential (primary) hypertension Active Diagnosis [facility] Diagnosis: ICD-10-CM Z00.01 Encounter for general [...] RULER INSIDE BOX) TOPICA L ACTIVE 09/05/2025 [id number] LEE ANN FALL 2023 100 [facility] HYDROCHLORO THIAZIDE 12.5MG/MANPREET NOPRIL 20MG TAB TAKE 2 TABLETS BY MOUTH EVERY MORNING FOR HIGH BLOOD PRESSURE ORAL ACTIVE 09/05/2025 [id number] LEE ANN FALL 2023 180 [facility] HYDROXYZINE HCL 25MG TAB TAKE ONE TABLET BY MOUTH AT BEDTIME INSOMNIA *MAY CAUSE DROWSINE SS* ORAL ACTIVE 09/05/2025 [id number] 5 LEE ANN FALL 2023 90 [facility] METFORMIN HCL 1000MG TAB TAKE ONE-HALF TABLET BY MOUTH TWICE A DAY WITH MEALS FOR DIABETES TAKE WITH FOOD. AVOID ALCOHOL. DISCONTI NUE BEFORE GETTING XRAY DYE. ORAL ACTIVE 09/05/2025 [id number] 5 LEE ANN FALL 2023 90 [facility] METHYLPREDN ISOLONE 4MG TAB DOSEPAK,21 TAKE TABLETS BY MOUTH DIRECTED FOR INFLAMMA TION TAKE 6 TABLETS BY MOUTH ON DAY ONE, THEN DECREASE BY ONE TABLET DAILY UNTIL GONE. TAKE WITH FOOD. ORAL 10/30/2024 [id number] 5 LEE ANN FALL 2024 1 [facility] TAMSULOSIN HCL 0.4MG CAP TAKE ONE CAPSULE BY MOUTH EVERY EVENING FOR BENIGN PROSTATI C HYPERPLA GAY APPROXIM ATELY 30 MINUTES AFTER THE SAME MEAL EACH DAY ORAL ACTIVE 09/05/2025 [id number] 5 LEE ANN FALL 2023 90 [facility] Allergies, Adverse Reactions, Alerts Combined list of allergies from Department of Defense and Veterans Affairs facilities. It does not include entries that were removed or entered in error. Substance Category Reaction Severity Reaction type Status Date Reported Comments Source TETRACYCLINE Propensity to adverse reactions to drug (finding) Urticaria MODERATE active 4 [facility] Immunizations Combined list of available immunizations from the Department of Defense and Veterans [facility] facilities. Immunization Series Date Given Administered By Site Reaction Lot Number CVX Code Drug Senior Product Integrity Engineer Status Comments Source TDAP 2023 RADHA RESENDIZ RIGHT DELTO ID [id number] complet ed [facility]E [facility] AT [facility] Results Combined list of recent chemistry, hematology and other laboratory results from Department of [facility] and [facility], ranging from 15 months to all on record, depending upon the facility. Order Name Results Value Reference Range Date Interpretation Specimen Comments Source HGA1C HEMOGLOBIN A1C/HEMOGLOBI N.TOTAL IN BLOOD 7.2 4.0 - 6.0 03/05 H Specimen Type: BLOOD No comment entered. Ordering Provider: LEE ANN FALL Report Released Date/Time : Sep 07, 2024 02:50 PM Reporting Lab: [place] [facility] [address] [place] [address] Performin g Lab: [place] [facility] [address] [place] [address] [facility] CHOLESTEROL PANEL (PB) CHOLESTEROL [MASS/VOLUME] IN SERUM OR PLASMA 175 mg/dL 0 - 200 03/05 Specimen Type: PLASMA No comment entered. Ordering Provider: LEE ANN FALL Report Released Date/Time : Sep 07, 2024 02:50 PM Reporting Lab: [place] [facility] [address] [place] [address] Performin g Lab: [place] [facility] [address] [place] [address] 8 [facility] CHOLESTEROL PANEL (PB) TRIGLYCERIDE [MASS/VOLUME] IN SERUM OR PLASMA 84 mg/dL 0 - 150 03/05 Specimen Type: PLASMA No comment entered. Ordering Provider: LEE ANN FALL Report Released Date/Time : Sep 07, 2024 02:50 PM Reporting Lab: [place] [facility] [address] [place] [address] Performin g Lab: [place] [facility] [address] [place] [address] [facility] CHOLESTEROL PANEL (PB) CHOLESTEROL IN LDL [MASS/VOLUME] IN SERUM OR PLASMA BY CALCULATION 116.9 mg/dL 03/05 Specimen Type: PLASMA No comment entered. Ordering Provider: LEE ANN FALL Report Released Date/Time : Sep 07, 2024 02:50 PM Reporting Lab: [place] [facility] [address] [place] [address] Performin g Lab: [place] [facility] [address] [place] [address] 8 [facility] CHOLESTEROL PANEL (PB) CHOLESTEROL IN HDL [MASS/VOLUME] IN SERUM OR PLASMA 41.3 mg/dL 40 03/05 H Specimen Type: PLASMA No comment entered. Ordering Provider: LEE ANN FALL Report Released Date/Time : Sep 07, 2024 02:50 PM Reporting Lab: [place] [facility] [address] [place] [address] Performin g Lab: [place] [facility] [address] [place] [address] 8 [facility] CHOLESTEROL PANEL (PB) CHOLESTEROL IN HDL/CHOLESTER OL.TOTAL [MASS RATIO] IN SERUM OR PLASMA 23.6 25 03/05 Specimen Type: PLASMA No comment entered. Ordering Provider: LEE ANN FALL Report Released Date/Time : Sep 07, 2024 02:50 PM Reporting Lab: [place] [facility] [address] [place] [address] Performin g Lab: [place] [facility] [address] [place] [address] [facility] URINE ALBUMIN PROFILE-ih (PB) ALBUMIN [MASS/VOLUME] IN URINE 13.49 mg/L 03/05 Specimen Type: URINE No comment entered. Ordering Provider: LEE ANN FALL Report Released Date/Time : Sep 07, 2024 02:50 PM Reporting Lab: [place] [facility] [address] [place] [address] Performin g Lab: [place] [facility] [address] [place] [address] [facility] URINE ALBUMIN PROFILE-ih (PB) ALBUMIN/CREAT ININE [MASS RATIO] IN URINE 15.21 mg/g 0 - 30 03/05 Specimen Type: URINE No comment entered. Ordering Provider: LEE ANN FALL Report Released Date/Time : Sep 07, 2024 02:50 PM Reporting Lab: [place] [facility] [address] [place] [address] Performin g Lab: [place] [facility] [address] [place] [address] [facility] URINE ALBUMIN PROFILE-ih (PB) CREATININE [MASS/VOLUME] IN URINE 88.69 mg/dL 03/05 Specimen Type: URINE No comment entered. Ordering Provider: LEE ANN FALL Report Released Date/Time : Sep 07, 2024 02:50 PM Reporting Lab: [place] [facility] [address] [place] [address] Performin g Lab: [place] [facility] [address] [place] [address] [facility] CBC LEUKOCYTES [#/VOLUME] IN BLOOD BY AUTOMATED COUNT 7.8 10*3/u L 3.6 - 11.2 03/05 Specimen Type: BLOOD No comment entered. Ordering Provider: LEE ANN FALL Report Released Date/Time : Sep 07, 2024 02:50 PM Reporting Lab: [place] [facility] [address] [place] [address] Performin g Lab: [place] [facility] [address] [place] [address] 8 [facility] CBC ERYTHROCYTES [#/VOLUME] IN BLOOD BY AUTOMATED COUNT 5.24 10*6/u L 4.10 - 5.70 03/05 Specimen Type: BLOOD No comment entered. Ordering Provider: LEE ANN FALL Report Released Date/Time : Sep 07, 2024 02:50 PM Reporting Lab: [place] [facility] [address] [place] [address] 8 Performin g Lab: [place] [facility] [address] [place] [address] [facility] CBC HEMOGLOBIN [MASS/VOLUME] IN BLOOD 15.6 g/dL 13.1 - 16.8 03/05 Specimen Type: BLOOD No comment entered. Ordering Provider: LEE ANN FALL Report Released Date/Time : Sep 07, 2024 02:50 PM Reporting Lab: [place] [facility] [address] [place] [address] 8 Performin g Lab: [place] [facility] [address] [place] [address] [facility] CBC HEMATOCRIT [VOLUME FRACTION] OF BLOOD 46.9 38.2 - 48.4 03/05 Specimen Type: BLOOD No comment entered. Ordering Provider: LEE ANN FALL Report Released Date/Time : Sep 07, 2024 02:50 PM Reporting Lab: [place] [facility] [address] [place] [address] Performin g Lab: [place] [facility] [address] [place] [address] [facility] CBC MCV [ENTITIC VOLUME] BY AUTOMATED COUNT 89.5 fL 80.0 - 100.0 03/05 Specimen Type: BLOOD No comment entered. Ordering Provider: LEE ANN FALL Report Released Date/Time : Sep 07, 2024 02:50 PM Reporting Lab: [place] [facility] [address] [place] [address] 8 Performin g Lab: [place] [facility] [address] [place] [address] [facility] CBC MCH [ENTITIC MASS] BY AUTOMATED COUNT 29.8 pg 27.0 - 34.0 03/05 Specimen Type: BLOOD No comment entered. Ordering Provider: LEE ANN FALL Report Released Date/Time : Sep 07, 2024 02:50 PM Reporting Lab: [place] [facility] [address] [place] [address] 8 Performin g Lab: [place] [facility] [address] [place] [address] [facility] CBC MCHC [MASS/VOLUME] BY AUTOMATED COUNT 33.3 g/dL 33.0 - 36.0 03/05 Specimen Type: BLOOD No comment entered. Ordering Provider: LEE ANN FALL Report Released Date/Time : Sep 07, 2024 02:50 PM Reporting Lab: [place] [facility] [address] [place] [address] 8 Performin g Lab: [place] [facility] [address] [place] [address] [facility] CBC PLATELETS [#/VOLUME] IN BLOOD BY AUTOMATED COUNT 235 10*3/u L 150 - 400 03/05 Specimen Type: BLOOD No comment entered. Ordering Provider: LEE ANN FALL Report Released Date/Time : Sep 07, 2024 02:50 PM Reporting Lab: [place] [facility] [address] [place] [address] 8 Performin g Lab: [place] [facility] [address] [place] [address] [facility] CBC PLATELET MEAN VOLUME [ENTITIC VOLUME] IN BLOOD BY AUTOMATED COUNT 9.6 fL 7.5 - 11.2 03/05 Specimen Type: BLOOD No comment entered. Ordering Provider: LEE ANN FALL Report Released Date/Time : Sep 07, 2024 02:50 PM Reporting Lab: [place] [facility] [address] [place] [address] 8 Performin g Lab: [place] [facility] [address] [place] [address] 8 [facility] CBC ERYTHROCYTE DISTRIBUTION WIDTH [RATIO] BY AUTOMATED COUNT 11.9 11.8 - 15.1 03/05 Specimen Type: BLOOD No comment entered. Ordering Provider: LEE ANN FALL Report Released Date/Time : Sep 07, 2024 02:50 PM Reporting Lab: [place] [facility] [address] [place] [address] 8 Performin g Lab: [place] [facility] [address] [place] [address] [facility] CBC LYMPHOCYTES/1 00 LEUKOCYTES IN BLOOD BY AUTOMATED COUNT 17.1 03/05 Specimen Type: BLOOD No comment entered. Ordering Provider: LEE ANN FALL Report Released Date/Time : Sep 07, 2024 02:50 PM Reporting Lab: [place] [facility] [address] [place] [address] Performin g Lab: [place] [facility] [address] [place] [address] [facility] CBC MONOCYTES/100 LEUKOCYTES IN BLOOD BY AUTOMATED COUNT 10.8 03/05 Specimen Type: BLOOD No comment entered. Ordering Provider: LEE ANN FALL Report Released Date/Time : Sep 07, 2024 02:50 PM Reporting Lab: [place] [facility] [address] [place] [address] Performin g Lab: [place] [facility] [address] [place] [address] [facility] CBC NEUTROPHILS/1 00 LEUKOCYTES IN BLOOD BY AUTOMATED COUNT 66.6 03/05 Specimen Type: BLOOD No comment entered. Ordering Provider: LEE ANN FALL Report Released Date/Time : Sep 07, 2024 02:50 PM Reporting Lab: [place] [facility] [address] [place] [address] 8 Performin g Lab: [place] [facility] [address] [place] [address] 8 [facility] CBC EOSINOPHILS/1 00 LEUKOCYTES IN BLOOD BY AUTOMATED COUNT 4.1 03/05 Specimen Type: BLOOD No comment entered. Ordering Provider: LEE ANN FALL Report Released Date/Time : Sep 07, 2024 02:50 PM Reporting Lab: [place] [facility] [address] [place] [address] 8 Performin g Lab: [place] [facility] [address] [place] [address] [facility] CBC BASOPHILS/100 LEUKOCYTES IN BLOOD BY AUTOMATED COUNT 1.1 03/05 Specimen Type: BLOOD No comment entered. Ordering Provider: LEE ANN FALL Report Released Date/Time : Sep 07, 2024 02:50 PM Reporting Lab: [place] [facility] [address] [place] [address] Performin g Lab: [place] [facility] [address] [place] [address] [facility] CBC LYMPHOCYTES [#/VOLUME] IN BLOOD BY AUTOMATED COUNT 1.34 10*3/u L 0.77 - 4.50 03/05 Specimen Type: BLOOD No comment entered. Ordering Provider: LEE ANN FALL Report Released Date/Time : Sep 07, 2024 02:50 PM Reporting Lab: [place] [facility] [address] [place] [address] Performin g Lab: [place] [facility] [address] [place] [address] [facility] CBC MONOCYTES [#/VOLUME] IN BLOOD BY AUTOMATED COUNT 0.85 10*3/u L 0.19 - 0.8 03/05 H Specimen Type: BLOOD No comment entered. Ordering Provider: LEE ANN FALL Report Released Date/Time : Sep 07, 2024 02:50 PM Reporting Lab: [place] [facility] [address] [place] [address] Performin g Lab: [place] [facility] [address] [place] [address] 8 [facility] CBC NEUTROPHILS [#/VOLUME] IN BLOOD BY AUTOMATED COUNT 5.22 10*3/u L 2.10 - 8.00 03/05 Specimen Type: BLOOD No comment entered. Ordering Provider: LEE ANN FALL Report Released Date/Time : Sep 07, 2024 02:50 PM Reporting Lab: [place] [facility] [address] [place] [address] Performin g Lab: [place] [facility] [address] [place] [address] [facility] CBC EOSINOPHILS [#/VOLUME] IN BLOOD BY AUTOMATED COUNT 0.32 10*3/u L 0.00 - 0.60 03/05 Specimen Type: BLOOD No comment entered. Ordering Provider: LEE ANN FALL Report Released Date/Time : Sep 07, 2024 02:50 PM Reporting Lab: [place] [facility] [address] [place] [address] Performin g Lab: [place] [facility] [address] [place] [address] [facility] CBC BASOPHILS [#/VOLUME] IN BLOOD BY AUTOMATED COUNT 0.09 10*3/u L 0.00 - 0.20 03/05 Specimen Type: BLOOD No comment entered. Ordering Provider: LEE ANN FALL Report Released Date/Time : Sep 07, 2024 02:50 PM Reporting Lab: [place] [facility] [address] [place] [address] Performin g Lab: [place] [facility] [address] [place] [address] [facility] CBC IMMATURE GRANULOCYTES/ 100 LEUKOCYTES IN BLOOD BY AUTOMATED COUNT 0.3 03/05 Specimen Type: BLOOD No comment entered. Ordering Provider: LEE ANN FALL Report Released Date/Time : Sep 07, 2024 02:50 PM Reporting Lab: [place] [facility] [address] [place] [address] Performin g Lab: [place] [facility] [address] [place] [address] [facility] CBC IMMATURE GRANULOCYTES [#/VOLUME] IN BLOOD BY AUTOMATED COUNT 0.02 10*3/u L 0.00 - 0.05 03/05 Specimen Type: BLOOD No comment entered. Ordering Provider: LEE ANN FALL Report Released Date/Time : Sep 07, 2024 02:50 PM Reporting Lab: [place] [facility] [address] [place] [address] Performin g Lab: [place] [facility] [address] [place] [address] [facility] COMPREHENSI VE METABOLIC PANEL CREATININE [MASS/VOLUME] IN SERUM OR PLASMA 0.84 mg/dL 0.7 - 1.3 03/05 Specimen Type: PLASMA No comment entered. Ordering Provider: LEE ANN FALL Report Released Date/Time : Sep 07, 2024 02:50 PM Reporting Lab: [place] [facility] [address] [place] [address] Performin g Lab: [place] [facility] [address] [place] [address] 8 [facility] COMPREHENSI VE METABOLIC PANEL UREA NITROGEN [MASS/VOLUME] IN SERUM OR PLASMA 24 mg/dL 9 - 25 03/05 Specimen Type: PLASMA No comment entered. Ordering Provider: LEE ANN FALL Report Released Date/Time : Sep 07, 2024 02:50 PM Reporting Lab: [place] [facility] [address] [place] [address] Performin g Lab: [place] [facility] [address] [place] [address] 8 [facility] COMPREHENSI VE METABOLIC PANEL GLUCOSE [MASS/VOLUME] IN SERUM OR PLASMA 125 mg/dL 72 - 99 03/05 H Specimen Type: PLASMA No comment entered. Ordering Provider: LEE ANN FALL Report Released Date/Time : Sep 07, 2024 02:50 PM Reporting Lab: [place] [facility] [address] [place] [address] Performin g Lab: [place] [facility] [address] [place] [address] [facility] COMPREHENSI VE METABOLIC PANEL SODIUM [MOLES/VOLUME ] IN SERUM OR PLASMA 133 meq/L 136 - 145 03/05 L Specimen Type: PLASMA No comment entered. Ordering Provider: LEE ANN FALL Report Released Date/Time : Sep 07, 2024 02:50 PM Reporting Lab: [place] [facility] [address] [place] [address] Performin g Lab: [place] [facility] [address] [place] [address] [facility] COMPREHENSI VE METABOLIC PANEL POTASSIUM [MOLES/VOLUME ] IN SERUM OR PLASMA 4.7 meq/L 3.5 - 5 03/05 Specimen Type: PLASMA No comment entered. Ordering Provider: LEE ANN FALL Report Released Date/Time : Sep 07, 2024 02:50 PM Reporting Lab: [place] [facility] [address] [place] [address] Performin g Lab: [place] [facility] [address] [place] [address] [facility] COMPREHENSI VE METABOLIC PANEL CHLORIDE [MOLES/VOLUME ] IN SERUM OR PLASMA 94 meq/L 98 - 107 03/05 L Specimen Type: PLASMA No comment entered. Ordering Provider: LEE ANN FALL Report Released Date/Time : Sep 07, 2024 02:50 PM Reporting Lab: [place] [facility] [address] [place] [address] Performin g Lab: [place] [facility] [address] [place] [address] [facility] COMPREHENSI VE METABOLIC PANEL CARBON DIOXIDE, TOTAL [MOLES/VOLUME ] IN SERUM OR PLASMA 30 meq/L 22 - 31 03/05 Specimen Type: PLASMA No comment entered. Ordering Provider: LEE ANN FALL Report Released Date/Time : Sep 07, 2024 02:50 PM Reporting Lab: [place] [facility] [address] [place] [address] 8 Performin g Lab: [place] [facility] [address] [place] [address] [facility] COMPREHENSI VE METABOLIC PANEL CALCIUM [MASS/VOLUME] IN SERUM OR PLASMA 9.4 mg/dL 8.4 - 10.4 03/05 Specimen Type: PLASMA No comment entered. Ordering Provider: LEE ANN FALL Report Released Date/Time : Sep 07, 2024 02:50 PM Reporting Lab: [place] [facility] [address] [place] [address] 8 Performin g Lab: [place] [facility] [address] [place] [address] [facility] COMPREHENSI VE METABOLIC PANEL PROTEIN [MASS/VOLUME] IN SERUM OR PLASMA 6.9 g/dL 6 - 8.6 03/05 Specimen Type: PLASMA No comment entered. Ordering Provider: LEE ANN FALL Report Released Date/Time : Sep 07, 2024 02:50 PM Reporting Lab: [place] [facility] [address] [place] [address] Performin g Lab: [place] [facility] [address] [place] [address] 8 [facility] COMPREHENSI VE METABOLIC PANEL ALBUMIN [MASS/VOLUME] IN SERUM OR PLASMA 4.1 g/dL 3.4 - 5 03/05 Specimen Type: PLASMA No comment entered. Ordering Provider: LEE ANN FALL Report Released Date/Time : Sep 07, 2024 02:50 PM Reporting Lab: [place] [facility] [address] [place] [address] Performin g Lab: [place] [facility] [address] [place] [address] [facility] COMPREHENSI VE METABOLIC PANEL BILIRUBIN.TOT AL [MASS/VOLUME] IN SERUM OR PLASMA 0.5 mg/dL 0.2 - 1.2 03/05 Specimen Type: PLASMA No comment entered. Ordering Provider: LEE ANN FALL Report Released Date/Time : Sep 07, 2024 02:50 PM Reporting Lab: [place] [facility] [address] [place] [address] Performin g Lab: [place] [facility] [address] [place] [address] [facility] COMPREHENSI VE METABOLIC PANEL ALKALINE PHOSPHATASE [ENZYMATIC ACTIVITY/VOLU ME] IN SERUM OR PLASMA 46 U/L 40 - 150 03/05 Specimen Type: PLASMA No comment entered. Ordering Provider: LEE ANN FALL Report Released Date/Time : Sep 07, 2024 02:50 PM Reporting Lab: [place] [facility] [address] [place] [address] Performin g Lab: [place] [facility] [address] [place] [address] [facility] COMPREHENSI VE METABOLIC PANEL ASPARTATE AMINOTRANSFER ASE [ENZYMATIC ACTIVITY/VOLU ME] IN SERUM OR PLASMA 19 U/L 5 - 34 03/05 Specimen Type: PLASMA No comment entered. Ordering Provider: LEE ANN FALL Report Released Date/Time : Sep 07, 2024 02:50 PM Reporting Lab: [place] [facility] [address] [place] [address] Performin g Lab: [place] [facility] [address] [place] [address] 8 [facility] COMPREHENSI VE METABOLIC PANEL ALANINE AMINOTRANSFER ASE [ENZYMATIC ACTIVITY/VOLU ME] IN SERUM OR PLASMA 13 U/L 8 - 40 03/05 Specimen Type: PLASMA No comment entered. Ordering Provider: LEE ANN FALL Report Released Date/Time : Sep 07, 2024 02:50 PM Reporting Lab: [place] [facility] [address] [place] [address] Performin g [facility]: [place] [facility] [address] [place] [address] [facility] COMPREHENSI VE METABOLIC PANEL GLOMERULAR FILTRATION RATE/1.73 SQ M.PREDICTED [VOLUME RATE/AREA] IN SERUM, PLASMA OR BLOOD BY CREATININE-BA SED FORMULA (CKD-EPI 2020) 97 03/05 Specimen Type: PLASMA No comment entered. Ordering Provider: LEE ANN FALL Report Released Date/Time : Sep 07, 2024 02:50 PM Reporting Lab: [place] [facility] [address] [place] [address] Performin g Lab: [place] [facility] [address] [place] [address] 8 [facility] CHOLESTEROL PANEL (PB) CHOLESTEROL [MASS/VOLUME] IN SERUM OR PLASMA 175 mg/dL 0 - 200 08/13 Specimen Type: PLASMA No comment entered. Ordering Provider: LEE ANN FALL Report Released Date/Time : Aug 11, 2024 07:18 AM Reporting Lab: [place] [facility] [address] [place] [address] Performin g Lab: [place] [facility] [address] [place] [address] 8 [facility] CHOLESTEROL PANEL (PB) TRIGLYCERIDE [MASS/VOLUME] IN SERUM OR PLASMA 130 mg/dL 0 - 150 08/13 Specimen Type: PLASMA No comment entered. Ordering Provider: LEE ANN FALL Report Released Date/Time : Aug 11, 2024 07:18 AM Reporting Lab: [place] [facility] [address] [place] [address] 8 Performin g [facility]: [place] [facility] [address] [place] [address] 8 [facility] CHOLESTEROL PANEL (PB) CHOLESTEROL IN LDL [MASS/VOLUME] IN SERUM OR PLASMA BY CALCULATION 108.0 mg/dL 08/13 Specimen Type: PLASMA No comment entered. Ordering Provider: LEE ANN FALL Report Released Date/Time : Aug 11, 2024 07:18 AM Reporting Lab: [place] [facility] [address] [place] [address] 8 Performin g Lab: [place] [facility] [address] [place] [address] 8 [facility] CHOLESTEROL PANEL (PB) CHOLESTEROL IN HDL [MASS/VOLUME] IN SERUM OR PLASMA 41.0 mg/dL 40 08/13 H Specimen Type: PLASMA No comment entered. Ordering Provider: LEE ANN FALL Report Released Date/Time : Aug 11, 2024 07:18 AM Reporting Lab: [place] [facility] [address] [place] [address] 8 Performin g Lab: [place] [facility] [address] [place] [address] 8 [facility] CHOLESTEROL PANEL (PB) CHOLESTEROL IN HDL/CHOLESTER OL.TOTAL [MASS RATIO] IN SERUM OR PLASMA 23.4 25 08/13 Specimen Type: PLASMA No comment entered. Ordering Provider: LEE ANN FALL Report Released Date/Time : Aug 11, 2024 07:18 AM Reporting Lab: [place] [facility] [address] [place] [address] 8 Performin g Lab: [place] [facility] [address] [place] [address] [facility] HGA1C HEMOGLOBIN A1C/HEMOGLOBI N.TOTAL IN BLOOD 7.1 4.0 - 6.0 08/13 H Specimen Type: BLOOD No comment entered. Ordering Provider: LEE ANN FALL Report Released Date/Time : Aug 11, 2024 07:18 AM Reporting Lab: [place] [facility] [address] [place] [address] 8 Performin g Lab: [place] [facility] [address] [place] [address] 8 [facility] FOLATE (PB) FOLATE [MASS/VOLUME] IN SERUM OR PLASMA 11.2 ng/mL 7 - 20 08/13 Specimen Type: SERUM Comment: *HEPATITI S C AB (PB) Not Performed : Aug 13, 2024@10:1 7 by [id number] *FNP Reason: Y Ordering Provider: LEE ANN FALL Report Released Date/Time : Aug 11, 2024 07:18 AM Reporting Lab: [place] [facility] [address] [place] [address] 8 Performin g Lab: [place] [facility] [address] [place] [address] 8 [facility] CBC LEUKOCYTES [#/VOLUME] IN BLOOD BY AUTOMATED COUNT 7.5 10*3/u L 3.6 - 11.2 08/13 Specimen Type: BLOOD No comment entered. Ordering Provider: LEE ANN FALL Report Released Date/Time : Aug 11, 2024 07:18 AM Reporting Lab: [place] [facility] [address] [place] [address] 8 Performin g Lab: [place] [facility] [address] [place] [address] 8 [facility] CBC ERYTHROCYTES [#/VOLUME] IN BLOOD BY AUTOMATED COUNT 5.40 10*6/u L 4.10 - 5.70 08/13 Specimen Type: BLOOD No comment entered. Ordering Provider: LEE ANN FALL Report Released Date/Time : Aug 11, 2024 07:18 AM Reporting Lab: [place] [facility] [address] [place] [address] 8 Performin g Lab: [place] [facility] [address] [place] [address] 8 [facility] CBC HEMOGLOBIN [MASS/VOLUME] IN BLOOD 15.5 g/dL 13.1 - 16.8 08/13 Specimen Type: BLOOD No comment entered. Ordering Provider: LEE ANN FALL Report Released Date/Time : Aug 11, 2024 07:18 AM Reporting Lab: [place] [facility] [address] [place] [address] 8 Performin g Lab: [place] [facility] [address] [place] [address] [facility] CBC HEMATOCRIT [VOLUME FRACTION] OF BLOOD 51.1 38.2 - 48.4 08/13 H Specimen Type: BLOOD No comment entered. Ordering Provider: LEE ANN FALL Report Released Date/Time : Aug 11, 2024 07:18 AM Reporting Lab: [place] [facility] [address] [place] [address] 8 Performin g Lab: [place] [facility] [address] [place] [address] 8 [facility] CBC MCV [ENTITIC VOLUME] BY AUTOMATED COUNT 94.6 fL 80.0 - 100.0 08/13 Specimen Type: BLOOD No comment entered. Ordering Provider: LEE ANN FALL Report Released Date/Time : Aug 11, 2024 07:18 AM Reporting Lab: [place] [facility] [address] [place] [address] 8 Performin g Lab: [place] [facility] [address] [place] [address] 8 [facility] CBC MCH [ENTITIC MASS] BY AUTOMATED COUNT 28.7 pg 27.0 - 34.0 08/13 Specimen Type: BLOOD No comment entered. Ordering Provider: LEE ANN FALL Report Released Date/Time : Aug 11, 2024 07:18 AM Reporting Lab: [place] [facility] [address] [place] [address] 8 Performin g Lab: [place] [facility] [address] [place] [address] 8 [facility] CBC MCHC [MASS/VOLUME] BY AUTOMATED COUNT 30.3 g/dL 33.0 - 36.0 08/13 L Specimen Type: BLOOD No comment entered. Ordering Provider: LEE ANN FALL Report Released Date/Time : Aug 11, 2024 07:18 AM Reporting Lab: [place] [facility] [address] [place] [address] 8 Performin g Lab: [place] [facility] [address] [place] [address] [facility] CBC PLATELETS [#/VOLUME] IN BLOOD BY AUTOMATED COUNT 231 10*3/u L 150 - 400 08/13 Specimen Type: BLOOD No comment entered. Ordering Provider: LEE ANN FALL Report Released Date/Time : Aug 11, 2024 07:18 AM Reporting Lab: [place] [facility] [address] [place] [address] 8 Performin g Lab: [place] [facility] [address] [place] [address] [facility] CBC PLATELET MEAN VOLUME [ENTITIC VOLUME] IN BLOOD BY AUTOMATED COUNT 10.1 fL 7.5 - 11.2 08/13 Specimen Type: BLOOD No comment entered. Ordering Provider: LEE ANN FALL Report Released Date/Time : Aug 11, 2024 07:18 AM Reporting Lab: [place] [facility] [address] [place] [address] 8 Performin g Lab: [place] [facility] [address] [place] [address] 8 [facility] CBC ERYTHROCYTE DISTRIBUTION WIDTH [RATIO] BY AUTOMATED COUNT 14.0 11.8 - 15.1 08/13 Specimen Type: BLOOD No comment entered. Ordering Provider: LEE ANN FALL Report Released Date/Time : Aug 11, 2024 07:18 AM Reporting Lab: [place] [facility] [address] [place] [address] 8 Performin g Lab: [place] [facility] [address] [place] [address] 8 [facility] CBC LYMPHOCYTES/1 00 LEUKOCYTES IN BLOOD BY AUTOMATED COUNT 19.0 08/13 Specimen Type: BLOOD No comment entered. Ordering Provider: LEE ANN FALL Report Released Date/Time : Aug 11, 2024 07:18 AM Reporting Lab: [place] [facility] [address] [place] [address] 8 Performin g Lab: [place] [facility] [address] [place] [address] [facility] CBC MONOCYTES/100 LEUKOCYTES IN BLOOD BY AUTOMATED COUNT 11.5 08/13 Specimen Type: BLOOD No comment entered. Ordering Provider: LEE ANN FALL Report Released Date/Time : Aug 11, 2024 07:18 AM Reporting Lab: [place] [facility] [address] [place] [address] 8 Performin g Lab: [place] [facility] [address] [place] [address] 8 [facility] CBC NEUTROPHILS/1 00 LEUKOCYTES IN BLOOD BY AUTOMATED COUNT 61.5 08/13 Specimen Type: BLOOD No comment entered. Ordering Provider: LEE ANN FALL Report Released Date/Time : Aug 11, 2024 07:18 AM Reporting Lab: [place] [facility] [address] [place] [address] 8 Performin g Lab: [place] [facility] [address] [place] [address] 8 [facility] CBC EOSINOPHILS/1 00 LEUKOCYTES IN BLOOD BY AUTOMATED COUNT 6.7 08/13 Specimen Type: BLOOD No comment entered. Ordering Provider: LEE ANN FALL Report Released Date/Time : Aug 11, 2024 07:18 AM Reporting Lab: [place] [facility] [address] [place] [address] 8 Performin g Lab: [place] [facility] [address] [place] [address] 8 [facility] CBC BASOPHILS/100 LEUKOCYTES IN BLOOD BY AUTOMATED COUNT 0.9 08/13 Specimen Type: BLOOD No comment entered. Ordering Provider: LEE ANN FALL Report Released Date/Time : Aug 11, 2024 07:18 AM Reporting Lab: [place] [facility] [address] [place] [address] 8 Performin g Lab: [place] [facility] [address] [place] [address] 8 [facility] CBC LYMPHOCYTES [#/VOLUME] IN BLOOD BY AUTOMATED COUNT 1.42 10*3/u L 0.77 - 4.50 08/13 Specimen Type: BLOOD No comment entered. Ordering Provider: LEE ANN FALL Report Released Date/Time : Aug 11, 2024 07:18 AM Reporting Lab: [place] [facility] [address] [place] [address] 8 Performin g Lab: [place] [facility] [address] [place] [address] [facility] CBC MONOCYTES [#/VOLUME] IN BLOOD BY AUTOMATED COUNT 0.86 10*3/u L 0.19 - 0.8 08/13 H Specimen Type: BLOOD No comment entered. Ordering Provider: LEE ANN FALL Report Released Date/Time : Aug 11, 2024 07:18 AM Reporting Lab: [place] [facility] [address] [place] [address] 8 Performin g Lab: [place] [facility] [address] [place] [address] 8 [facility] CBC NEUTROPHILS [#/VOLUME] IN BLOOD BY AUTOMATED COUNT 4.60 10*3/u L 2.10 - 8.00 08/13 Specimen Type: BLOOD No comment entered. Ordering Provider: LEE ANN FALL Report Released Date/Time : Aug 11, 2024 07:18 AM Reporting Lab: [place] [facility] [address] [place] [address] 8 Performin g Lab: [place] [facility] [address] [place] [address] 8 [facility] CBC EOSINOPHILS [#/VOLUME] IN BLOOD BY AUTOMATED COUNT 0.50 10*3/u L 0.00 - 0.60 08/13 Specimen Type: BLOOD No comment entered. Ordering Provider: LEE ANN FALL Report Released Date/Time : Aug 11, 2024 07:18 AM Reporting Lab: [place] [facility] [address] [place] [address] 8 Performin g Lab: [place] [facility] [address] [place] [address] 8 [facility] CBC BASOPHILS [#/VOLUME] IN BLOOD BY AUTOMATED COUNT 0.07 10*3/u L 0.00 - 0.20 08/13 Specimen Type: BLOOD No comment entered. Ordering Provider: LEE NAN FALL Report Released Date/Time : Aug 11, 2024 07:18 AM Reporting Lab: [place] [facility] [address] [place] [address] 8 Performin g Lab: [place] [facility] [address] [place] [address] [facility] CBC IMMATURE GRANULOCYTES/ 100 LEUKOCYTES IN BLOOD BY AUTOMATED COUNT 0.4 08/13 Specimen Type: BLOOD No comment entered. Ordering Provider: LEE ANN FALL Report Released Date/Time : Aug 11, 2024 07:18 AM Reporting Lab: [place] [facility] [address] [place] [address] 8 Performin g Lab: [place] [facility] [address] [place] [address] 8 [facility] CBC IMMATURE GRANULOCYTES [#/VOLUME] IN BLOOD BY AUTOMATED COUNT 0.03 10*3/u L 0.00 - 0.05 08/13 Specimen Type: BLOOD No comment entered. Ordering Provider: LEE ANN FALL Report Released Date/Time : Aug 11, 2024 07:18 AM Reporting Lab: [place] [facility] [address] [place] [address] 8 Performin [facility]: [place] [facility] [address] [place] [address] 8 [facility] COMPREHENSI VE METABOLIC PANEL CREATININE [MASS/VOLUME] IN SERUM OR PLASMA 0.90 mg/dL 0.7 - 1.3 08/13 Specimen Type: PLASMA No comment entered. Ordering Provider: LEE ANN FALL Report Released Date/Time : Aug 11, 2024 07:18 AM Reporting Lab: [place] [facility] [address] [place] [address] 8 Performin g [facility]: [place] [facility] [address] [place] [address] 8 [place] [facility] COMPREHENSI VE METABOLIC PANEL UREA NITROGEN [MASS/VOLUME] IN SERUM OR PLASMA 16 mg/dL 9 - 25 08/13 Specimen Type: PLASMA No comment entered. Ordering Provider: LEE ANN FALL Report Released Date/Time : Aug 11, 2024 07:18 AM Reporting Lab: [place] [facility] [address] [place] [address] 8 Performin g Lab: [place] [facility] [address] [place] [address] 8 [facility] COMPREHENSI VE METABOLIC PANEL GLUCOSE [MASS/VOLUME] IN SERUM OR PLASMA 90 mg/dL 72 - 99 08/13 Specimen Type: PLASMA No comment entered. Ordering Provider: LEE ANN FALL Report Released Date/Time : Aug 11, 2024 07:18 AM Reporting Lab: [place] [facility] [address] [place] [address] 8 [facility]formin g Lab: [place] [facility] [address] [place] [address] 8 [facility] COMPREHENSI VE METABOLIC PANEL SODIUM [MOLES/VOLUME ] IN SERUM OR PLASMA 141 meq/L 136 - 145 08/13 Specimen Type: PLASMA No comment entered. Ordering Provider: LEE ANN FALL Report Released Date/Time : Aug 11, 2024 07:18 AM Reporting Lab: [place] [facility] [address] [place] [address] 8 [facility]: [place] [facility] [address] [place] [address] 8 [facility] COMPREHENSI VE METABOLIC PANEL POTASSIUM [MOLES/VOLUME ] IN SERUM OR PLASMA 4.4 meq/L 3.5 - 5 08/13 Specimen Type: PLASMA No comment entered. Ordering Provider: LEE ANN FALL Report Released Date/Time : Aug 11, 2024 07:18 AM Reporting Lab: [place] [facility] [address] [place] [address] 8 [facility]: [place] [facility] [address] [place] [address] 8 [place] [facility] COMPREHENSI VE METABOLIC PANEL CHLORIDE [MOLES/VOLUME ] IN SERUM OR PLASMA 101 meq/L 98 - 107 08/13 Specimen Type: PLASMA No comment entered. Ordering Provider: LEE ANN FALL Report Released Date/Time : Aug 11, 2024 07:18 AM Reporting Lab: [place] [facility] [address] [place] [address] 8 [facility]: [place] [facility] [address] [place] [address] 8 [facility] COMPREHENSI VE METABOLIC PANEL CARBON DIOXIDE, TOTAL [MOLES/VOLUME ] IN SERUM OR PLASMA 30 meq/L 22 - 31 08/13 Specimen Type: PLASMA No comment entered. Ordering Provider: LEE ANN FALL Report Released Date/Time : Aug 11, 2024 07:18 AM Reporting Lab: [place] [facility] [address] [place] [address] 8 [facility]: [place] [facility] [address] [place] [address] 8 [facility] COMPREHENSI VE METABOLIC PANEL CALCIUM [MASS/VOLUME] IN SERUM OR PLASMA 9.4 mg/dL 8.4 - 10.4 08/13 Specimen Type: PLASMA No comment entered. Ordering Provider: LEE ANN FALL Report Released Date/Time : Aug 11, 2024 07:18 AM Reporting Lab: [place] [facility] [address] [place] [address] 8 [facility]: [place] [facility] [address] [place] [address] 8 [facility] COMPREHENSI VE METABOLIC PANEL PROTEIN [MASS/VOLUME] IN SERUM OR PLASMA 7.2 g/dL 6 - 8.6 08/13 Specimen Type: PLASMA No comment entered. Ordering Provider: LEE ANN FALL Report Released Date/Time : Aug 11, 2024 07:18 AM Reporting Lab: [place] [facility] [address] [place] [address] 8 [facility]: [place] [facility] [address] [place] [address] 8 [facility] COMPREHENSI VE METABOLIC PANEL ALBUMIN [MASS/VOLUME] IN SERUM OR PLASMA 3.9 g/dL 3.4 - 5 08/13 Specimen Type: PLASMA No comment entered. Ordering Provider: LEE ANN FALL Report Released Date/Time : Aug 11, 2024 07:18 AM Reporting Lab: [place] [facility] [address] [place] [address] 8 [facility]: [place] [facility] [address] [place] [address] 8 [facility] COMPREHENSI VE METABOLIC PANEL BILIRUBIN.TOT AL [MASS/VOLUME] IN SERUM OR PLASMA 0.4 mg/dL 0.2 - 1.2 08/13 Specimen Type: PLASMA No comment entered. Ordering Provider: LEE ANN FALL Report Released Date/Time : Aug 11, 2024 07:18 AM Reporting Lab: [place] [facility] [address] [place] [address] 8 [facility]: [place] [facility] [address] [place] [address] 8 [facility] COMPREHENSI VE METABOLIC PANEL ALKALINE PHOSPHATASE [ENZYMATIC ACTIVITY/VOLU ME] IN SERUM OR PLASMA 66 U/L 40 - 150 08/13 Specimen Type: PLASMA No comment entered. Ordering Provider: LEE ANN FALL Report Released Date/Time : Aug 11, 2024 07:18 AM Reporting Lab: [place] [facility] [address] [place] [address] 8 [facility]: [place] [facility] [address] [place] [address] 8 [facility] COMPREHENSI VE METABOLIC PANEL ASPARTATE AMINOTRANSFER ASE [ENZYMATIC ACTIVITY/VOLU ME] IN SERUM OR PLASMA 20 U/L 5 - 34 08/13 Specimen Type: PLASMA No comment entered. Ordering Provider: LEE ANN FALL Report Released Date/Time : Aug 11, 2024 07:18 AM Reporting Lab: [place] [facility] [address] [place] [address] 8 [facility]: [place] [facility] [address] [place] [address] 8 [facility] COMPREHENSI VE METABOLIC PANEL ALANINE AMINOTRANSFER ASE [ENZYMATIC ACTIVITY/VOLU ME] IN SERUM OR PLASMA 20 U/L 8 - 40 08/13 Specimen Type: PLASMA No comment entered. Ordering Provider: LEE ANN FALL Report Released Date/Time : Aug 11, 2024 07:18 AM Reporting Lab: [place] [facility] [address] [place] [address] 8 [facility]: [place] [facility] [address] [place] [address] 8 [facility] COMPREHENSI VE METABOLIC PANEL GLOMERULAR FILTRATION RATE/1.73 SQ M.PREDICTED [VOLUME RATE/AREA] IN SERUM, PLASMA OR BLOOD BY CREATININE-BA SED FORMULA (CKD-EPI 2020) 95 08/13 Specimen Type: PLASMA No comment entered. Ordering Provider: LEE ANN FALL Report Released Date/Time : Aug 11, 2024 07:18 AM Reporting Lab: [place] [facility] [address] [place] [phone] Performin g Lab: [place] [facility] [address] [place] [address] [facility] Vital Signs Combined list of inpatient and outpatient Vital Signs from Department of Defense and Veterans Affairs, ranging from 12 months to all on record, depending upon the facility. Vital Sign Value Date Comments Source SYSTOLIC BLOOD PRESSURE 138 01/04/2025 12:05:[facility] D[facility] 84 01/04/2025 12:05:00 [facility] TEMPERATURE 97.5 01/04/2025 12:05:00 [facility] PULSE 78 01/04/2025 12:05:00 [facility] SYSTOLIC BLOOD PRESSURE 174 12/02/2024 08:21:00 [facility] DIASTOLIC BLOOD PRESSURE 84 12/02/2024 08:21:00 [facility] PULSE OXIMETRY 89 12/02/2024 08:21:00 [facility] WEIGHT 365.6 12/02/2024 08:21:00 [facility] BMI 50 kg/m2 12/02/2024 08:21:00 [place] [facility] PAIN 7 12/02/2024 08:21:00 [facility] HEIGHT 72.0 12/02/2024 08:21:00 [place] [place] PULSE 80 12/02/2024 08:21:00 [facility] RESPIRATION 16 12/02/2024 08:21:00 [facility] SYSTOLIC BLOOD PRESSURE 133 10/30/2024 13:28:00 [facility] DIASTOLIC BLOOD PRESSURE 78 10/30/2024 13:28:00 [facility] TEMPERATURE 98 10/30/2024 13:28:00 [facility] PULSE 68 10/30/2024 13:28:00 [facility] SYSTOLIC BLOOD PRESSURE 123 09/30/2024 15:53:00 [facility] DIASTOLIC BLOOD PRESSURE 79 09/30/2024 15:53:00 [facility] TEMPERATURE 98.1 09/30/2024 15:53:00 [facility] PULSE 62 09/30/2024 15:53:00 [facility] SYSTOLIC BLOOD PRESSURE 152 09/14/2024 11:53:37 [facility] DIASTOLIC BLOOD PRESSURE 84 09/14/2024 11:53:37 [facility] PULSE OXIMETRY 96 09/14/2024 11:53:37 [facility] PULSE 69 09/14/2024 11:53:37 [facility] RESPIRATION 20 09/14/2024 11:53:37 [facility] [place] [facility] Encounters Combined list of: 1) Encounters from Department of Veterans Affairs facilities going backup to the last 18 months, not all VA inpatient encounters are included; 2) Encounters from the Department of Defense facilities going backup to 280 months. Location Location Details Encounter Type Encounter Number Reason For Visit Attending Provider ADM Date DC Date Status Disposition Source [facility] Outpatient Encounter [id number] 08/13 [facility] [place] [facility] OFF[facility] O/P NEW MOD 45 MIN [id number] Diagnos is: ICD-10- CM Z00.01 Encount er for general adult medical exam w abnorma l finding s ROSANNA FALL R 08/13 [facility] Outpatient Encounter [id number] 08/18 [facility] Outpatient Encounter [id number] ROSANNA FALL Ed 09/07 [facility] Outpatient Encounter [id number] 09/11 [facility] SYS BP LESS 140 [id number] Diagnos is: ICD-10- CM I10 Essenti al (primar y) hyperte ALOK Harvey 09/14 [facility] OFF/OP EST JANUARY X REQ PHY/QHP [id number] Diagnos is: ICD-10- CM M25.569 Pain in unspeci fied knee CUSTRED,TO RRI J 09/30 [facility] OFF/OP EST MAY X REQ PHY/QHP [id number] Diagnos is: ICD-10- CM M25.562 Pain in left knee CUSTRED,TO RRI J 10/30 [facility] OFFICE O/P EST SF 10 MIN [id number] Diagnos is: ICD-10- CM M17.12 Unilate ral primary osteoar thritis , left knee Tremaine NUNEZ 12/02 [facility] OFF/OP EST MAY X REQ PHY/QHP [id number] Diagnos is: ICD-10- CM M25.562 Pain in left knee CUSTRED,TO RRI J 01/04 [facility] OFF[facility] O/P EST MOD 30 MIN [id number] Diagnos is: ICD-10- CM M25.562 Pain in left knee JESUSITA ORTA 01/04 [facility] Outpatient Encounter [id number] 01/29 [facility] [place] Outpatient Encounter [id number] 02/01 [facility] Outpatient Encounter [id number] 02/08 [facility] Outpatient Encounter [id number] 02/17 [facility] Outpatient Encounter [id number] 02/22 [facility] Outpatient Encounter [id number] 02/26 [facility] Outpatient Encounter [id number] ROSANNA FALL 03/05 [facility] Outpatient Encounter [id number] 04/21 [facility] Outpatient Encounter [id number] 04/22 [facility] [facility] Outpatient Encounter [id number] 04/23 [facility] Social History Combined list of available smoking, tobacco, and other social history from Department of Defense and Veterans Affairs facilities. Social History Type Response Date Comment Sourc e Tobacco smoking status NHIS VA-TOBACCO USE FORMER CIGARETTES 08/13/2024 [facility] History of tobacco use VA-TOBACCO USE FO RMER OTHER TYPE 08/13/2024 [facility] Plan of Care List of future care activities from Department of Veterans Affairs facilities. Additional future care activities may be listed in the Assessment and Plan section. Date/Time Care Activity Care Activity Detail Facili ty 08/02/2025 AMBULATORY - MEDICINE AMBULATORY - [facility]ICI [facility]
[2025-04-28 23:58] VITALS: BP 106/52; PULSE 117; RESP 18; TEMP 36.9; O2SAT 90; BMI 49.5
--- OUTSIDE RECORDS SUMMARY | 2025-04-28 23:58 | XMS_ITS | Encounter Summary ---
Author Organization [facility] Address [address] [place] [address] Care Team Providers Care Teachers Aide Name Role Phone Unavailable Primary Care Provider Unavailabl e Encounter Details Date Type Department Care Team (Latest Contact Info) Description 06/30/2007 Outpatient Historical [address] [address] Milena Porter, BUYER AGENT NO ADDRESS ON FILE Rash and Other Nonspecific Skin Eruption (Primary Dx) Social History Tobacco Use Types Packs/Day Years Used Date Smoking Tobacco: Never Assessed Sex and Gender Information Value Date Recorded Sex Assigned at Not on file 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
--- OUTSIDE RECORDS SUMMARY | 2025-04-28 23:58 | XMS_ITS | Encounter Summary ---
Author Organization [facility] Address [address] [place] [address] Care Team Providers Care Client Renewal Specialist Name Role Phone Unavailable Primary Care Provider Unavailabl e Encounter Details Date Type Department Care Team (Latest Contact Info) Description 03/22/2006 Outpatient Historical [facility] [address] [place] [phone] Heriberto Tejada V., DO [address] [place] [id number] Pain in Joint, Shoulder Region (Primary Dx) Social History Tobacco Use Types Packs/Day Years Used Date Smoking Tobacco: Never Assessed Sex and Gender Information Value Date Recorded Sex Assigned at Not on file 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
--- OUTSIDE RECORDS SUMMARY | 2025-04-28 23:58 | XMS_ITS | Encounter Summary ---
Author Organization 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
--- OUTSIDE RECORDS SUMMARY | 2025-04-28 23:58 | XMS_ITS | Encounter Summary ---
Author Organization [facility] Address [address] [place] [address] Care Team Providers Care Supervisor Locomotive Name Role Phone Unavailable Primary Care Provider Unavailabl e Encounter Details Date Type Department Care Team (Latest Contact Info) Description 06/16/2007 Outpatient Historical [address] [address] Milena Porter, SALES AND MARKETING INTERN NO ADDRESS ON FILE Rash and Other Nonspecific Skin Eruption (Primary Dx); Unspecified Venous (Peripheral) Insufficiency; Obesity, Unspecified Social History Tobacco Use Types Packs/Day Years Used Date Smoking Tobacco: Never Assessed Sex and Gender Information Value Date Recorded Sex Assigned at Not on file 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
--- OUTSIDE RECORDS SUMMARY | 2025-04-28 23:58 | XMS_ITS | Clinical Summary ---
Author Organization [facility] Address [address] [facility] [address] [place] [address] Phone Care Team Providers Care Glue Spreader Name Role Phone Maynor Quinteros MD Primary Care Provider [phone] Allergies Active Allergy Reactions Criticality Noted Date Comments Levofloxacin Shortness of Breath/Wheezing High 07/27 Tetracyclines Rash Low 07/27/2023 Medications lisinopril-hydr oCHLOROthiazide (ZESTORETIC) 20-12.5 mg tablet Take 1 Tablet by mouth daily. Active glucosamine-cho ndroitin (ARTHX DS) 500-400 mg Capsule Take 2 Capsules by mouth daily. Active jkeb-eerv-yvd-y da-dno-pfhl-hor (Tumersaid) [phone] mg Tablet Take 1 Tablet by mouth daily. 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
--- OUTSIDE RECORDS SUMMARY | 2025-04-28 23:58 | XMS_ITS | Clinical Summary ---
Author Organization [employer] Address [address] [facility] Attn: [place] [address] Care Team Providers Care Temperer Name Role Phone Unavailable Primary Care Provider Unavailabl e Social History Tobacco Use Types Packs/Day Years Used Date Smoking Tobacco: Never Assessed Sex and Gender Information Value Date Recorded Sex Assigned at Not on file Legal Sex Male 3:05 AM DOORS PREFITTER Gender Identity Not on file Sexual Orientation [...]
[2025-04-29] VITALS (8 sets, daily range): BP systolic 93–164; BP diastolic 50–80; PULSE 87–109; RESP 17–20; TEMP 36.7–37; O2SAT 91–96
--- NOTE | 2025-04-29 00:32 | XRR_ITS ---
PROCEDURE INFORMATION: Exam: XR Left Knee Exam date and time: 04/29/2025 2:46 AM Age: 64 years old Clinical indication: Injury or trauma; Fall; Blunt trauma; Knee; Prior surgery; Surgery date: 3-7 days post-operative; Surgery type: Left tka; Additional info: Fall, injury, a/p, lat TECHNIQUE: Imaging protocol: Radiologic exam of the left knee. Views: 1 or 2 views. COMPARISON: CR ([facility], ) 04/27/2025 5:58 PM FINDINGS: Bones/joints: Anatomic total left knee replacement. Soft tissues: Skin armaan. XR/XR knee LT 1-2V [id number] IMPRESSION: Unremarkable total left knee replacement.
--- NOTE | 2025-04-29 01:41 | USR_ITS ---
PROCEDURE INFORMATION: Exam: US Duplex Left Lower Extremity Veins, Limited Exam date and time: 04/29/2025 3:18 AM Age: 64 years old Clinical indication: Edema, localized; Lower extremity, left; Prior surgery; Surgery date: 3-7 days post-operative; Surgery type: Left total knee replacement last week; Additional info: L leg swelling TECHNIQUE: Imaging protocol: Real-time duplex ultrasound of the left extremity with 2-D dave scale, color Doppler flow and spectral waveform analysis including responses to compression and other maneuvers (when performed) with image documentation. Limited exam focused on the left lower extremity veins. COMPARISON: MR knee LT wo con* [id number] 01/25/2025 2:19 PM FINDINGS: Left deep veins: Unremarkable. The common femoral, femoral, proximal profunda femoral and popliteal veins are patent without thrombus. Normal Doppler waveforms. Normal compressibility and/or augmentation response. Superficial veins: Greater saphenous vein at the saphenofemoral junction is patent without thrombus. Soft tissues: Unremarkable. US/CV venous duplex [facility] [id number] IMPRESSION: There is no evidence of deep vein thrombosis associated with the left lower extremity.
--- NOTE | 2025-04-29 01:41 | XRR_ITS ---
PROCEDURE INFORMATION: Exam: XR Chest Exam date and time: 04/29/2025 2:52 AM Age: 64 years old Clinical indication: Dyspnea; Prior surgery; Surgery date: 3-7 days post-operative; Surgery type: Left tka; Additional info: SOB, weakness TECHNIQUE: Imaging protocol: Radiologic exam of the chest. Views: 1 view. COMPARISON: No relevant prior studies available. FINDINGS: Lungs: Unremarkable. No consolidation. Pleural spaces: Unremarkable. No pleural effusion. No pneumothorax. Heart/Mediastinum: Unremarkable. No cardiomegaly. Bones/joints: Unremarkable. XR/XR chest 1V portable [id number] IMPRESSION: No acute findings.
[2025-04-29 02:11] LABS: Hematocrit 32.4 % (37-53); Hemoglobin 10.20 g/dL (11.27-16.99); Mean Corpuscular HGB Conc 31.5 g/dL (30-55); Mean Corpuscular Hemoglobin 28.7 pg (27-33); Mean Corpuscular Volume 91.0 fl (82-101); Nucleated Red Blood Cells % 0 %; Platelet Count 350 10^3/cmm (157-399); Red Blood Count 3.56 10^6/uL (3.85-5.65); White Blood Count 14.53 10^3/uL (3.29-11.43)
[2025-04-29] MEDS: HYDROcodone-acetaminophen 7.5-325 mg Tablet 1 TAB PO (02:15)
[2025-04-29 02:23] LABS: INR 0.93 (0.8-1.2); Partial Thromboplastin Time 24.6 SECONDS (23.9-36.7); Prothrombin Time 13.10 SECONDS (12.1-14.9)
[2025-04-29 02:32] LABS: Alanine Aminotransferase 34 U/L (0-41); Albumin Level 3.4 g/dL (3.5-5.2); Alkaline Phosphatase 85 U/L (40-130); Anion Gap 17.4 (5-19); Aspartate Amino Transferase 69 U/L (0-40); Blood Urea Nitrogen 32 mg/dL (8-23); Calcium 8.9 mg/dL (8.5-10.5); Carbon Dioxide 27 mmol/L (22-29); Chloride 95 mmol/L (98-107); Creatinine Clr Calc Pharmacy 58.7419; Globulin 3.2 g/dL (1.3-4.6); Glucose 105 mg/dL (65-115); Osmolality Calculated 287 mOsm/kg (285-295); Potassium 4.4 mmol/L (3.5-5.1); Sodium 135 mmol/L (136-145); Total Protein 6.6 g/dL (6.6-8.7)
--- NOTE | 2025-04-29 05:07 | W.ED.EXTPRO ---
HPI - Extremity Problem General: Chief complaint: Extremity Injury, Lower Stated complaint: WEAKNESS, POST KNEE SURGERY Time Seen by Provider: 04/29/25 01:10 Source: patient and EMS Mode of arrival: ambulatory Limitations: no limitations History of Present Illness: Patient told he needed placement done 7 days ago. Use of walker to ambulate but does not use one all the time and need to get his From outside and he fell onto his left side for did not let him on his knee but was able to get up on his own and then later fell again inside. He reports of the armaan opened up during these falls and cause some bleeding. Brought here by EMS after getting 200 of fentanyl and 4 of Zofran. Pain is currently 7 out of 10. According to creations with his orthopedist Dr. Tristan this is not the only fall as he has had. Related Data Home Medications ?Medication ?Instructions ?Recorded ?Confirmed tamsulosin 0.4 mg capsule 0.4 mg PO BEDTIME 03/15/25 04/29/25 acetaminophen 500 mg tablet 1,500 mg PO BID 04/20/25 04/29/25 diclofenac sodium 1 % topical gel 2 g topical QID 04/20/25 04/29/25 hydroxyzine HCl 25 mg tablet 25 mg PO BEDTIME 04/20/25 04/29/25 metformin 1,000 mg tablet 500 mg PO BIDWMEAL 04/20/25 04/29/25 lisinopril 20 2 tab PO DAILY 04/29/25 04/29/25 mg-hydrochlorothiazide 12.5 mg tablet Previous Rx's ?Medication ?Instructions ?Recorded hydrocodone 5 mg-acetaminophen 325 1 tab PO Q6H PRN pain #30 tabs 04/22/25 mg tablet sulfamethoxazole 800 1 tab PO Q12H 10 days #20 tabs 04/27/25 mg-trimethoprim 160 mg tablet (Bactrim DS) Allergies Allergy/AdvReac Type Severity Reaction Status Date / Time tetracycline Allergy Severe rash Verified 04/29/25 00:09 Review of Systems General: Reports: 10 or more systems reviewed and unremarkable except in HPI and below PFSH ED PFSH: Medical History (Updated 04/30/25 @ 18:34 by Benson Gooden MD) Benign prostate hyperplasia Hypertension Diabetes mellitus, type II Obesity Surgical History (Updated 04/29/25 @ 06:08 by Dominic Schilling MD) History of total knee arthroplasty Social History Smoking and tobacco/nicotine status: never used tobacco/nicotine Physical Exam Const: COMMON NORMALS: patient oriented x3, alert and well nourished GENERAL APPEARANCE: well developed and ill appearing; not well kempt NUTRITIONAL APPEARANCE: obese HENMT: COMMON NORMALS: normocephalic and atraumatic HEAD & SCALP: normocephalic and atraumatic Eye: COMMON NORMALS: Equal, round and reactive pupils present, EOMs intact bilaterally and no scleral icterus PUPIL: Yes Equal, round and reactive pupils present Neck/C-Spine: COMMON NORMALS: full ROM, no lymphadenopathy and no JVD Lymph: LYMPHATIC: no lymphadenopathy noted Chest: COMMONS NORMALS: normal inspection of the chest Resp: COMMON NORMALS: normal respiratory effort, No retractions and No use of accessory muscles Cardio: COMMON NORMALS: no JVD, regular rate, regular rhythm, S1 normal heart sound present and S2 normal heart sound present JUGULAR VENOUS DISTENTION: no JVD RATE: regular rate RHYTHM: regular rhythm HEART SOUNDS: S1 normal heart sound present and S2 normal heart sound present GI: COMMON NORMALS: Normal to inspection, nondistended, normoactive bowel sounds present : COMMON NORMALS: Yes no CVA tenderness BLADDER/KIDNEY EXAM: Yes no CVA tenderness Back/Pelvis: COMMON NORMALS: no CVA tenderness Extremity: NARRATIVE EXTREMITY EXAM: Right leg normal, both arms moving with full range of motion. Left leg severely swollen with increasing erythema with recent TKA scar that appears to be healing, does have some serosanguineous discharge otherwise intact. Neuro: COMMON NORMALS: patient oriented x3 SENSORIUM/ORIENTATION: Yes alert Psych: APPEARANCE: No well kempt Course Vital Signs: Vital signs: Vital Signs Temperature 97.6 F 05/01/25 04:00 Pulse Rate 91 05/01/25 04:00 Respiratory Rate 20 H 05/01/25 04:00 Blood Pressure 150/70 05/01/25 04:00 Pulse Oximetry 90 05/01/25 04:00 Oxygen Delivery Me thod Room Air 05/01/25 04:00 Oxygen Flow Rate 3 04/30/25 16:11 MDM - Extremity (Nontraumatic) Medical Decision Making Disheveled patient with failure to thrive since total knee replacement. Patient arrives with worsening swelling, redness of the leg. Had multiple falls. Has been count up with orthopedics she request to be admitted for swing bed placement as he is obviously cannot care for himself alone at home. Patient has RUSSELL will be admitted for other medical reasons and further workup and likely placement Medical Records I reviewed the patient's medical records. Lab Data I reviewed the patient's lab results. 04/30/25 04:41 04/30/25 04:41 Radiology Impressions Chest X-Ray 04/29/25 01:41 IMPRESSION: No acute findings. Venous Duplex 04/29/25 01:41 IMPRESSION: There is no evidence of deep vein thrombosis associated with the left lower extremity. Knee CT 04/29/25 06:03 IMPRESSION: 1. Postoperative changes of total knee arthroplasty are noted, with evidence of extensive lateral patellar tilt and subluxation. No acute fracture is identified, with limitations of metallic artifact. 2. Recent appearing postoperative changes of the soft tissues along the anterior aspect of the knee, with evidence of an anterior gas containing fluid collection likely representing a postoperative hematoma in the suprapatellar subcutaneous fat, with extension into Hoffa's fat pad. An infectious etiology is less likely. 3. Large joint fluid collection containing a small amount of gas, likely related to the recent postoperative changes. 4. Proximal tibial-fibular joint primary osteoarthritic changes. Lumbar Spine CT 04/29/25 06:06 IMPRESSION: 1. Fragmentation of an osteophyte arising from the right lateral aspect of L4 is noted, which demonstrates CT features suggestive of a probable chronic fracture. An acute fracture is less likely. 2. Old appearing mildly displaced fractures of the right L4 transverse process. 3. Multilevel degenerative changes appear greatest at L5-S1, where neural foraminal stenosis on the right likely results in compression of the exiting right L5 nerve root. 4. Simple appearing left renal cyst with benign features. No follow-up is necessary. COMMENTS: Consistent with the [employer]'s Incidental Findings Committee white paper (J Am Rupal Radiol 2018): Any incidental renal lesion less than 1 cm or classified as too small to characterize, or any incidental cystic renal lesion characterized as simple-appearing, is likely benign. No follow-up imaging is recommended for these lesions per consensus recommendations based on imaging criteria. Knee X-Ray 04/30/25 14:26 IMPRESSION: Intact knee prosthesis. Laboratory Results WBC 14.53 10^3/uL (3.29-11.43) H 04/29/25 01:55 RBC 3.56 10^6/uL (3.85-5.65) L 04/29/25 01:55 Hgb 10.20 g/dL (11.27-16.99) L 04/29/25 01:55 Hct 32.4 % (37-53) L 04/29/25 01:55 MCV 91.0 fl (82-101) 04/29/25 01:55 MCH 28.7 pg (27-33) 04/29/25 01:55 MCHC 31.5 g/dL (30-55) 04/29/25 01:55 RDW 14.3 % (12.1-15.1) 04/29/25 01:55 Plt Count 350 10^3/cmm (157-399) 04/29/25 01:55 MPV 9.2 fL (7.4-10.4) 04/29/25 01:55 Neut % (Auto) 85.1 % 04/29/25 01:55 Lymph % (Auto) 4.8 % 04/29/25 01:55 Sutter % (Auto) 7.2 % 04/29/25 01:55 Eos % (Auto) 0.9 % 04/29/25 01:55 Baso % (Auto) 0.3 % 04/29/25 01:55 Neut # (Auto) 12.36 10^3/uL (1.8-7.7) H 04/29/25 01:55 Lymph # (Auto) 0.7 10^3/uL (0.8-4.8) L 04/29/25 01:55 Sutter # (Auto) 1.0 10^3/uL (0.2-0.9) H 04/29/25 01:55 Eos # (Auto) 0.1 10^3/uL (0.0-0.8) 04/29/25 01:55 Baso # (Auto) 0.1 10^3/uL (0.0-0.1) 04/29/25 01:55 Nucleated RBC % (auto) 0 % 04/29/25 01:55 Nucleated RBCs # 0.0 /100WBC 04/29/25 01:55 ESR 30 mm/hr (0-10) H 04/29/25 01:55 PT 13.10 SECONDS (12.1-14.9) 04/29/25 01:55 INR 0.93 (0.8-1.2) 04/29/25 01:55 APTT 24.6 SECONDS (23.9-36.7) 04/29/25 01:55 Sodium 135 mmol/L (136-145) L 04/29/25 01:55 Potassium 4.4 mmol/L (3.5-5.1) 04/29/25 01:55 Chloride 95 mmol/L (98-107) L 04/29/25 01:55 Carbon Dioxide 27 mmol/L (22-29) 04/29/25 01:55 Anion Gap 17.4 (5-19) 04/29/25 01:55 BUN 32 mg/dL (8-23) H 04/29/25 01:55 Creatinine 2.0 mg/dL (0.7-1.2) H 04/29/25 01:55 GFR Calculation 33.7 mL/min (90-130) L 04/29/25 01:55 Glucose 105 mg/dL (65-115) 04/29/25 01:55 Calculated Osmolality 287 mOsm/kg (285-295) 04/29/25 01:55 Calcium 8.9 mg/dL (8.5-10.5) 04/29/25 01:55 Total Bilirubin 0.5 mg/dL (0.15-1.2) 04/29/25 01:55 AST 69 U/L (0-40) H 04/29/25 01:55 ALT 34 U/L (0-41) 04/29/25 01:55 Alkaline Phosphatase 85 U/L (40-130) 04/29/25 01:55 C-Reactive Protein 120.3 mg/L (0.0-4.9) H 04/29/25 01:55 Total Protein 6.6 g/dL (6.6-8.7) 04/29/25 01:55 Albumin 3.4 g/dL (3.5-5.2) L 04/29/25 01:55 Globulin 3.2 g/dL (1.3-4.6) 04/29/25 01:55 All radiology interpretation(s) finalized by discharge ED provider radiology interpretation(s): no DVT Discharge Plan Discharge Patient Disposition: Admitted As Inpatient Admit Provider: Dominic Schilling Clinical Impression: RUSSELL (acute kidney injury), Status post total left knee replacement, Multiple falls, Physical deconditioning, Cellulitis Condition: Stable Coding Level of Care Code ED 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
--- NOTE | 2025-04-29 06:03 | CTR_ITS ---
PROCEDURE INFORMATION: Exam: CT Left Lower Extremity Without Contrast, Knee Exam date and time: 04/29/2025 6:51 AM Age: 64 years old Clinical indication: Swelling or effusion of joint; Prior surgery; Surgery date: 3-7 days post-operative; Surgery type: Left knee; Additional info: Swelling, tenderness TECHNIQUE: Imaging protocol: CT of the left lower extremity without contrast was performed. Exam focused on the knee. Radiation optimization: All CT scans at this facility use at least one of these dose optimization techniques: automated exposure control; mA and/or kV adjustment per patient size (includes targeted exams where dose is matched to clinical indication); or iterative reconstruction. COMPARISON: MR knee LT wo con* [id number] 01/25/2025 2:19 PM RADIATION DOSE METRICS: Total DLP (mGy-cm): 417.55 FINDINGS: Limitations: Metallic artifact Bones/joints: [id number] diffuse subcutaneous edema is greatest along the anterior aspect of the knee. Postoperative changes of total knee arthroplasty are identified. The prosthesis components appear intact. No acute fractures identified. Lateral patellar tilt is extensive, with lateral patellar subluxation. Small to moderate osteophytes are noted at the proximal tibiofibular articulation. A large joint fluid collection containing gas is present. Soft tissues: Skin armaan overlie the anterior aspect of the distal femur through the proximal to mid shaft of the tibia. An ovoid slightly hyperdense fluid collection containing foci of gas is noted in the adjacent subcutaneous fat in the suprapatellar region measuring up to 4.1 x 3.1 cm in the axial plane on series 10, image 42, by 11.7 cm superior to inferior. A portion of this fluid extends superiorly off the imaged view. There is extension of hyperdense fluid and gas into the anterior knee within Hoffa's fat pad measuring 5.6 x 4.2 x 3.6 cm on series 16, image 40. This fluid appears to track through an incision site in the region of the medial quadriceps tendon. Vasculature: There are multifocal regions of atherosclerotic calcification. CT/CT knee LT wo con* [id number] IMPRESSION: 1. Postoperative changes of total knee arthroplasty are noted, with evidence of extensive lateral patellar tilt and subluxation. No acute fracture is identified, with limitations of metallic artifact. 2. Recent appearing postoperative changes of the soft tissues along the anterior aspect of the knee, with evidence of an anterior gas containing fluid collection likely representing a postoperative hematoma in the suprapatellar subcutaneous fat, with extension into Hoffa's fat pad. An infectious etiology is less likely. 3. Large joint fluid collection containing a small amount of gas, likely related to the recent postoperative changes. 4. Proximal tibial-fibular joint primary osteoarthritic changes.
--- NOTE | 2025-04-29 06:04 | PM.HP ---
Providers/Chief Complaint Primary Care Provider: Lulu Alves MD Chief Complaint: WEAKNESS, POST KNEE SURGERY History of Present Illness Fernando Smiley is a 64 year old male with a past medical history hypertension, type 2 diabetes mellitus, recent history of a left knee total arthroplasty April 21, 2025, who presents [facility] for falls, severe left knee pain, drainage and bleeding coming from the left knee. Patient currently patient alert oriented x 3, following all commands, tells me that after his surgery, he has had weakness, fatigue he has had a few falls, some of those falls have resulted in him falling on his left knee, he has noticed increased serosanguineous and at times bloody drainage coming from his left knee, with increased left knee swelling, and tenderness, he does report back pain after his fall Review of Systems Const: Reports: fatigue and malaise; Denies: fever(s) or chills Card: Denies: chest pain Resp: Denies: dyspnea GI: Denies: abdominal pain : Reports: difficulty urinating and dysuria; Denies: flank pain Medications/Allergies Home Medications ?Medication ?Instructions ?Recorded ?Confirmed ?Last Taken ?Type lisinopril 10 1 tab PO BID 03/15/25 04/21/25 04/20/25 History mg-hydrochlorothiazide 12.5 mg tablet tamsulosin 0.4 mg capsule 0.4 mg PO DAILY 03/15/25 04/21/25 04/20/25 History acetaminophen 500 mg tablet 1,500 mg PO BID 04/20/25 04/21/25 04/21/25 History diclofenac sodium 1 % topical gel 2 g topical QID 04/20/25 04/21/25 2 Weeks Ago History ~04/07/25 hydroxyzine HCl 25 mg tablet 25 mg PO BEDTIME 04/20/25 04/21/25 04/20/25 History metformin 1,000 mg tablet 500 mg PO BIDWMEAL 04/20/25 04/21/25 04/20/25 History hydrocodone 5 mg-acetaminophen 325 1 tab PO Q6H PRN pain #30 tabs 04/22/25 Unknown Rx mg tablet sulfamethoxazole 800 1 tab PO Q12H 10 days #20 tabs 04/27/25 Unknown Rx mg-trimethoprim 160 mg tablet (Bactrim DS) Allergies Allergy/AdvReac Type Severity Reaction Status Date / Time tetracycline Allergy Severe rash Verified 04/29/25 00:09 PFSH Acute PFSH: Medical History (Updated 04/29/25 @ 06:08 by Dominic Schilling MD) Benign prostate hyperplasia Hypertension Diabetes mellitus, type II Obesity Surgical History (Updated 04/29/25 @ 06:08 by Dominic Schilling MD) History of total knee arthroplasty Social History Smoking and tobacco/nicotine status: never used tobacco/nicotine Vitals/I&O/Wt Last Vital Signs Temp 98.5 F 04/28/25 23:58 Pulse 101 H 04/29/25 06:00 Resp 18 04/28/25 23:58 BP 104/50 04/29/25 06:00 Pulse Ox 91 04/29/25 06:00 O2 Del Method Nasal Cannula 04/29/25 06:00 O2 Flow Rate 2 04/29/25 06:00 Weight last 48 hrs Weight 165.561 kg Physical Exam Const: COMMON NORMALS: no acute distress and patient oriented x3 HENMT: COMMON NORMALS: normocephalic HEAD & SCALP: normocephalic Eye: COMMON NORMALS: Equal, round and reactive pupils present Neck/C-Spine: COMMON NORMALS: no JVD Resp: COMMON NORMALS: normal respiratory effort, No retractions, No use of accessory muscles and clear to auscultation bilaterally AUSCULTATION: clear to auscultation bilaterally Cardio: COMMON NORMALS: no JVD, regular rate, regular rhythm, S1 normal heart sound present and S2 normal heart sound present RATE: regular rate RHYTHM: regular rhythm HEART SOUNDS: S1 normal heart sound present and S2 normal heart sound present GI: COMMON NORMALS: Normal to inspection, nondistended, normoactive bowel sounds present, Soft to palpation and non-tender Extremity: COMMON NORMALS: no calf tenderness and no pedal edema Neuro: COMMON NORMALS: patient oriented x3 Psych: COMMON NORMALS: mental status grossly normal Skin: OTHER: Left knee, erythema, swelling, tenderness, warmth Surgical staple sites Inferior staple site has open area of serosanguineous drainage Erythema, swelling, tenderness throughout left lower extremity Data 04/29/25 01:55 04/29/25 01:55 Micro: Microbiology 04/29/25 01:55 Blood Culture - Preliminary Blood SPECIMEN COLLECTED 04/29/25 01:57 Blood Culture - Preliminary Blood SPECIMEN COLLECTED A&P Assessment and plan 1. Cellulitis: 2. Leukocytosis (leucocytosis): 3. RUSSELL (acute kidney injury): 4. Status post total left knee replacement: 5. Pain and swelling of left knee: 6. Physical deconditionin. Multiple falls: Plan: Multiple falls - PT OT Acute kidney injury - Obtain a urinalysis - Obtain CPK levels - IV fluids Urinalysis ordered Cellulitis left leg - Vancomycin - Cefepime Concerns for surgical site infection left knee -ESR 30, CRP 120.3 - Status post left knee total arthroplasty - Patient has bleeding, serosanguineous drainage coming from staple sites -Blood cultures Plan - CT scan left knee - Based on clinical progress/CT scan we will have to consult orthopedic service Concern for sepsis secondary to cellulitis Deconditioning Type 2 diabetes mellitus, low-dose sliding scale Full code Lovenox for DVT prophylaxis PDMP PDMP Reviewed: Not Reviewed Attestations Medical Necessity Statement*: Patient requires hospitalization, inpatient, greater than 2 midnights, for falls, left knee pain, cellulitis, concerns for surgical site infection Diagnoses Cellulitis L03.90 Leukocytosis (leucocytosis) D72.829 RUSSELL (acute kidney injury) N17.9 Status post total left knee replacement Z96.652 Laterality: left Pain and swelling of left knee M25.562; M25.462 Physical deconditioning R53.81 Multiple falls R29.6 Sepsis Event Note Evaluation Current stage of sepsis: sepsis Initial hypotension due to sepsis/infection: SBP < 90 mmHg Possible source: skin/soft tissue Focused Exam Vital Signs Temp Pulse Resp BP Pulse Ox O2 Del Method O2 Flow Rate 04/29/25 06:00 101 H 104/50 91 Nasal Cannula 2 04/29/25 05:17 109 H 130/56 91 Room Air 04/28/25 23:58 98.5 F 117 H 18 106/52 90 Room Air Capillary refill: > 3 Seconds Peripheral pulse strength: 2+ Slightly Diminished Peripheral pulse location: Pedal Skin exam: normal turgor Date exam was performed: 04/29/25 Time exam was performed: 06:09 Problem List 1. Cellulitis: Status: Acute 2. Leukocytosis (leucocytosis): Status: Acute 3. RUSSELL (acute kidney injury): Status: Acute 4. Status post total left knee replacement: Status: Acute 5. Pain and swelling of left knee: Status: Acute 6. Physical deconditioning: Status: Acute 7. Multiple falls: Status: Acute
--- NOTE | 2025-04-29 06:06 | CTR_ITS ---
PROCEDURE INFORMATION: Exam: CT Lumbar Spine Without Contrast Exam date and time: 04/29/2025 6:48 AM Age: 64 years old Clinical indication: Injury or trauma; Fall; Blunt trauma (contusions or hematomas) TECHNIQUE: Imaging protocol: Computed tomography of the lumbar spine without contrast. Radiation optimization: All CT scans at this facility use at least one of these dose optimization techniques: automated exposure control; mA and/or kV adjustment per patient size (includes targeted exams where dose is matched to clinical indication); or iterative reconstruction. COMPARISON: No relevant prior studies available. RADIATION DOSE METRICS: Total DLP (mGy-cm): 1428.75 FINDINGS: Bones/joints: Vertebral body alignment is normal. The vertebral body heights are maintained. Extensive degenerative spondylosis throughout the lumbar spine and visualized thoracic spine is present. Fragmentation of an osteophyte arising from the right lateral aspect of the L4 vertebral body on series 4, image 69 demonstrates at least partially corticated margins. The bones appear demineralized. The right L4 transverse process demonstrates a well corticated ununited minimally displaced fracture best demonstrated on series 7 image 61. Small osteophytes are noted at the sacroiliac joints. An old healed fracture of the left 12th rib is noted. L1-L2: No significant canal or neuroforaminal stenosis is identified. L2-L3: Mild posterior osteophyte formation is noted and diffuse disc bulge is greater to the left of midline. No significant neural foraminal stenosis. Mild canal stenosis in the region of the left lateral recess. L3-L4: Mild posterior osteophyte formation is present. No significant canal or neuroforaminal stenosis is identified. L4-L5: Mild posterior osteophyte formation is noted with mild disc bulge. Neural foraminal stenosis is mild on the right. No significant left-sided neural foraminal stenosis. Mild canal stenosis, greatest in the left lateral recess. L5-S1: Mild bilateral facet hypertrophy. Posterior osteophyte formation is noted with mild diffuse disc bulge. Neural foraminal stenoses appear [id number] bilaterally, greatest on the right with probable compression of the exiting right L5 nerve root. No significant canal stenosis. Kidneys and ureters: An exophytic simple fluid density structure arises posteriorly from the superior pole of the left kidney measuring 4.0 x 3.1 cm on series 4, image 18. Vasculature: Multifocal regions of atherosclerotic calcification are identified. Soft tissues: Unremarkable. CT/CT lumbar spine wo con* [id number] IMPRESSION: 1. Fragmentation of an osteophyte arising from the right lateral aspect of L4 is noted, which demonstrates CT features suggestive of a probable chronic fracture. An acute fracture is less likely. 2. Old appearing mildly displaced fractures of the right L4 transverse process. 3. Multilevel degenerative changes appear greatest at L5-S1, where neural foraminal stenosis on the right likely results in compression of the exiting right L5 nerve root. 4. Simple appearing left renal cyst with benign features. No follow-up is necessary. COMMENTS: Consistent with the [employer]'s Incidental Findings Committee white paper (J Am Rupal Radiol 2018): Any incidental renal lesion less than 1 cm or classified as too small to characterize, or any incidental cystic renal lesion characterized as simple-appearing, is likely benign. No follow-up imaging is recommended for these lesions per consensus recommendations based on imaging criteria.
[2025-04-29 06:41] LABS: INR 0.93 (0.8-1.2); Prothrombin Time 13.10 SECONDS (12.1-14.9)
[2025-04-29 06:43] LABS: Lactic Sepsis W/Reflex 0.9 mmol/L (0.5-2.2)
[2025-04-29 06:44] LABS: Glucose Urine UA Negative (Normal); Nitrate Urine Negative (Negative); Specific Gravity, Urine 1.022 (1.005-1.030)
[2025-04-29 06:48] LABS: Add Urine Microscopic? YES
--- NOTE | 2025-04-29 06:52 | PC.NURSE ---
unable to complete bedside d/t pt being in CT during shift change.
[2025-04-29 06:53] LABS: NT Pro B Type Natriuretic Pept 168 pg/mL (0-125); Procalcitonin 0.93 ng/mL (0-0.5)
[2025-04-29 07:44] LABS: Cholesterol 142 mg/dL (0-200); HDL Cholesterol 28 mg/dL (60-100); Thyroid Stimulating Hormone 1.24 uIU/mL (0.27-4.20); Triglycerides 140 mg/dL (0-150)
[2025-04-29 07:50] LABS: Estmated Average Glucose 146; Hemoglobin A1C 6.7 % (4.0-6.0)
[2025-04-29 07:58] LABS: UA Manual Slide Review YES; UA Slide Review UA Slide Review Perf
[2025-04-29] MEDS: cefepime 2,000 mg SDV 2000 MG IVP (08:34)
[2025-04-29] MEDS: pantoprazole 40 mg SDV IVP (08:34)
--- NOTE | 2025-04-29 09:11 | P.PN_ITS ---
Subjective 2 Subjective: Patient was seen in the morning and was reporting having swelling, redness and bruising from the left knee s/p surgery Of note : upon discussion with the case management about the case it was made aware that the patient had been noncompliant with the precautionary measure postsurgery and was bending his knee and putting weight which was supposed to be avoided. Vitals/I&O/Wt Last Vital Signs Temp 98.2 F 04/29/25 07:46 Pulse 91 04/29/25 07:46 Resp 17 04/29/25 07:46 BP 93/55 04/29/25 07:46 Pulse Ox 96 04/29/25 07:46 O2 Del Method Room Air 04/29/25 07:46 O2 Flow Rate 2 04/29/25 06:00 04/28/25 04/29/25 04/29/25 22:59 06:59 14:59 Intake Total 400 / 400 Balance 400 / 400 Weight last 48 hrs Weight 158.304 kg Weight 165.561 kg Physical Exam 2 Narrative: General: Alert oriented x3, patient seen lying on the bed without any discomfort however sleeping in between the discussion and conversation_ HEENT: Normocephalic, atraumatic, EOMI, breathing at room air Cardio: Regular rate rhythm, normal S1-S2, no murmurs rubs gallops, JVD__normal Respiratory: Good bilateral air entry, no wheezes no rhonchi appreciated GI: Abdomen soft, nontender, nondistended, normoactive bowel sounds present all 4 quadrants, Neuro: Cranial nerves II to XII intact, strength 5/5, sensation 5/5, no gross neurological deficit Behavior: Appropriate and cooperative Extremities: Left knee with armaan of the surgery, with redness limitation of the movement and swelling suggestive of collection beneath. There was mild oozing as well noticed which was serosanguineous in color Data 04/29/25 01:55 04/29/25 01:55 Micro: Microbiology 04/29/25 01:55 Blood Culture - Preliminary Blood SPECIMEN COLLECTED 04/29/25 01:57 Blood Culture - Preliminary Blood SPECIMEN COLLECTED A&P Assessment and plan 1. Cellulitis: 2. Leukocytosis (leucocytosis): 3. RUSSELL (acute kidney injury): 4. Status post total left knee replacement: 5. Pain and swelling of left knee: 6. Physical deconditionin. Multiple falls: Plan: Cellulitis left leg above the left knee Dorothy raising concern for intra- articular infection however CT scan showed subcutaneous postsurgery inflammatory changes. High inflammatory markers - Vancomycin - Cefepime - Ortho consulted and plan for I&D - Follow blood cultures Multiple falls - PT OT Acute kidney injury - High CPK and likely secondary to left knee cellulitis -Adequate hydration and monitor kidney functions Deconditioning inability to take care of himself - Case management consulted for placing into shelter Type 2 diabetes mellitus: - low-dose sliding scale Full code Lovenox for DVT prophylaxis PDMP PDMP Reviewed: Not Reviewed Attestations 2 Medical Necessity Statement*: Patient will stay for the management of his left knee cellulitis/infection acute kidney injury Time Spent in Patient Care: 45 Other Attestations: This documentation was created by [employer] chemical test engineer software. Every effort was made to ensure accuracy of chemical test engineer.? Any obvious errors or omissions should be clarified with the author of the document. Coding Level of Care Code Acute Code for [facility] Fwd Diagnoses Cellulitis L03.90 Leukocytosis (leucocytosis) D72.829 RUSSELL (acute kidney injury) N17.9 Status post total left knee replacement Z96.652 Laterality: left Pain and swelling of left knee M25.562; M25.462 Physical deconditioning R53.81 Multiple falls R29.6
--- NOTE | 2025-04-29 09:22 | PC.PHAR ---
[facility] . [facility] .
[2025-04-29 11:03] LABS: MRSA PCR OZH (swab) NOT DETECTED (Negative)
--- NOTE | 2025-04-29 16:37 | P.CONIM_ITS ---
Providers/Reason For Consult 2 Consulting Physician/Specialty*: Hospitalist Reason for Consult*: Left knee infection Attending Physician: Benson Gooden MD Primary Care Provider: Lluu Alves MD History of Present Illness History of Present Illness Fernando Smiley is a 64 year old malewith a past medical history hypertension, type 2 diabetes mellitus, recent history of a left knee total arthroplasty April 21, 2025, who presents [facility] for falls, severe left knee pain, drainage and bleeding coming from the left knee. At this point patient is fallen on the knee several times as well. Pain is isolated around the knee. Patient states it has been draining and bleeding for the last several days since surgery. Review of Systems 2 Const: Reports: fatigue and malaise; Denies: fever(s) or chills Card: Denies: chest pain Resp: Denies: dyspnea GI: Denies: abdominal pain : Reports: difficulty urinating and dysuria; Denies: flank pain Medications/Allergies Home Medications ?Medication ?Instructions ?Recorded ?Confirmed ?Last Taken ?Type tamsulosin 0.4 mg capsule 0.4 mg PO BEDTIME 03/15/25 0 04/29/25 04/28/25 20:00 History acetaminophen 500 mg tablet 1,500 mg PO BID 04/20/25 0 04/29/25 04/21/25 History diclofenac sodium 1 % topical gel 2 g topical QID 03/2404/29/25 2 Weeks Ago History ~04/07/25 hydroxyzine HCl 25 mg tablet 25 mg PO BEDTIME 04/20/25 04/29/25 04/27/25 20:00 History metformin 1,000 mg tablet 500 mg PO BIDWMEAL 04/20/25 04/29/25 04/28/25 History hydrocodone 5 mg-acetaminophen 325 1 tab PO Q6H PRN pa in #30 tabs 04/22/25 04/29/25 04/28/25 Rx mg tablet sulfamethoxazole 800 1 tab PO Q12H 10 days #20 ta bs 04/27/25 04/29/25 Unknown Rx mg-trimethoprim 160 mg tablet (Bactrim DS) lisinopril 20 2 tab PO DAILY 04/29/25 08/04/1604/28/25 History mg-hydrochlorothiazide 12.5 mg tablet Allergies Allergy/AdvReac Type Severity Reaction Status Date / Time tetracycline Allergy Severe rash Verified 04/29/25 00:09 Current Medications Generic Name Dose Route Start Last Admin Trade Name Luis PRN Reason Stop Dose Admin Enoxaparin Sodium 40 mg 04/29/25 07:30 04/29/25 08:34 Enoxaparin 40 Mg/0.4 Ml Syringe SUBCUT 40 mg Q24H CHRISSIE Administration Lactated Ringer's 1,000 mls @ 125 mls/hr 04/29/25 09:30 04/29/25 13:11 Lactated Ringers IV 125 mls/hr .Q8H CHRISSIE Infusion Insulin Human Lispro 0 unit 04/29/25 08:00 04/29/25 10:47 Insulin Lispro 100 Unit/1 Ml SUBCUT Not Given TIDWM CHRISSIE Protocol Pantoprazole Sodium 40 mg 04/29/25 07:19 04/29/25 08:34 Pantoprazole 40 Mg Sdv IVP 40 mg Q24H CHRISSIE Administration Tamsulosin HCl 0.4 mg 04/29/25 09:00 04/29/25 08:34 Tamsulosin 0.4 Mg Capsule PO 0.4 mg DAILY CHRISSIE Administration PFSH Acute 2 PFSH: Medical History (Updated 04/29/25 @ 06:08 by Dominic Schilling MD) Benign prostate hyperplasia Hypertension Diabetes mellitus, type II Obesity Surgical History (Updated 04/29/25 @ 06:08 by Dominic Schilling MD) History of total knee arthroplasty Social History Smoking and tobacco/nicotine status: never used tobacco/nicotine Vitals/I&O/Wt Last Vital Signs Temp 98.1 F 04/29/25 15:35 Pulse 88 04/29/25 15:35 Resp 18 04/29/25 15:35 BP 109/73 04/29/25 15:35 Pulse Ox 94 04/29/25 15:35 O2 Del Method Room Air 04/29/25 15:35 O2 Flow Rate 2 04/29/25 06:00 04/29/25 04/29/25 04/29/25 06:59 14:59 22:59 Intake Total 1630.833 / 1630.833 Output Total 300 / 300 150 / 450 Balance 1330.833 / 1330.833 -150 / 1180.833 Weight last 48 hrs Weight 349 lb Weight 365 lb Physical Exam 2 Narrative: Alert and oriented x 3 Head is normocephalic atraumatic Respirations are intact Patient's right knee has abrasions all over it as well. Patient's knee is erythematous and has some drainage do not see yolanda pus at this point but was reported earlier Data 04/29/25 01:55 04/29/25 01:55 Micro: Microbiology 04/29/25 01:55 Blood Culture - Preliminary Blood SPECIMEN COLLECTED 04/29/25 01:57 Blood Culture - Preliminary Blood SPECIMEN COLLECTED A&P Assessment and plan 1. Status post total left knee replacement: CT result 1. Postoperative changes of total knee arthroplasty are noted, with evidence of extensive lateral patellar tilt and subluxation. No acute fracture is identified, with limitations of metallic artifact. 2. Recent appearing postoperative changes of the soft tissues along the anterior aspect of the knee, with evidence of an anterior gas containing fluid collection likely representing a postoperative hematoma in the suprapatellar subcutaneous fat, with extension into Hoffa's fat pad. An infectious etiology is less likely. 3. Large joint fluid collection containing a small amount of gas, likely related to the recent postoperative changes. 4. Proximal tibial-fibular joint primary osteoarthritic changes. 1 week postop from left total knee replacement Plan will be to do I&D of the knee. Will get cultures intraoperatively. PDMP PDMP Reviewed: Not Reviewed Coding Level of Care Code Acute Code for [facility] Fwd Diagnoses Status post total left knee replacement Z96.652 Laterality: left
[2025-04-29] MEDS: cefepime 1,000 mg SDV 1000 MG IVP (20:19)
[2025-04-30] VITALS (27 sets, daily range): BP systolic 112–170; BP diastolic 60–79; PULSE 80–91; RESP 12–19; TEMP 36.6–37.3; O2SAT 90–100
[2025-04-30 05:01] LABS: Hematocrit 32.6 % (37-53); Hemoglobin 9.70 g/dL (11.27-16.99); Mean Corpuscular HGB Conc 29.8 g/dL (30-55); Mean Corpuscular Hemoglobin 29.3 pg (27-33); Mean Corpuscular Volume 98.5 fl (82-101); Nucleated Red Blood Cells % 0 %; Platelet Count 314 10^3/cmm (157-399); Red Blood Count 3.31 10^6/uL (3.85-5.65); White Blood Count 7.62 10^3/uL (3.29-11.43)
[2025-04-30 05:47] LABS: Alanine Aminotransferase 67 U/L (0-41); Albumin Level 2.6 g/dL (3.5-5.2); Alkaline Phosphatase 113 U/L (40-130); Anion Gap 16.6 (5-19); Aspartate Amino Transferase 199 U/L (0-40); Blood Urea Nitrogen 29 mg/dL (8-23); Calcium 8.3 mg/dL (8.5-10.5); Carbon Dioxide 20 mmol/L (22-29); Chloride 103 mmol/L (98-107); Creatinine Clr Calc Pharmacy 103.8481; Globulin 3.3 g/dL (1.3-4.6); Glucose 117 mg/dL (65-115); Osmolality Calculated 287 mOsm/kg (285-295); Potassium 4.6 mmol/L (3.5-5.1); Sodium 135 mmol/L (136-145); Total Protein 5.9 g/dL (6.6-8.7)
--- NOTE | 2025-04-30 08:45 | P.PN_ITS ---
Subjective 2 Subjective: Patient was seen in the morning and was reporting having swelling, however the redness has improved and the patient feels the leg is getting better. Patient having armaan over the knee surgery area and still having some mild discharge and some oozing of serosanguineous fluid Of note : upon discussion with the case management about the case it was made aware that the patient had been noncompliant with the precautionary measure postsurgery and was bending his knee and putting weight which was supposed to be avoided. Vitals/I&O/Wt Last Vital Signs Temp 99.1 F 04/30/25 07:25 Pulse 85 04/30/25 07:25 Resp 18 04/30/25 07:25 BP 134/67 04/30/25 07:25 Pulse Ox 90 04/30/25 07:25 O2 Del Method Room Air 04/30/25 04:00 O2 Flow Rate 2 04/29/25 06:00 04/29/25 04/30/25 04/30/25 22:59 06:59 14:59 Intake Total 1582.917 / 3213.750 1960 / 5173.750 480 / 480 Output Total 750 / 1050 100 / 1150 750 / 750 Balance 832.917 / 2163.750 1860 / 4023.750 -270 / -270 Weight last 48 hrs Weight 157.759 kg Weight 158.304 kg Weight 165.561 kg Physical Exam 2 Narrative: General: Alert oriented x3, patient seen lying on the bed without any discomfort however sleeping in between the discussion and conversation_ HEENT: Normocephalic, atraumatic, EOMI, breathing at room air Cardio: Regular rate rhythm, normal S1-S2, no murmurs rubs gallops, JVD__normal Respiratory: Good bilateral air entry, no wheezes no rhonchi appreciated GI: Abdomen soft, nontender, nondistended, normoactive bowel sounds present all 4 quadrants, Neuro: Cranial nerves II to XII intact, strength 5/5, sensation 5/5, no gross neurological deficit Behavior: Appropriate and cooperative Extremities: Left knee with armaan of the surgery, with redness limitation of the movement and swelling suggestive of collection beneath. There was mild oozing as well noticed which was serosanguineous in color Data 04/30/25 04:41 04/30/25 04:41 Micro: Microbiology 04/29/25 01:55 Blood Culture - Preliminary Blood NEGATIVE TO DATE 04/29/25 01:57 Blood Culture - Preliminary Blood NEGATIVE TO DATE A&P Assessment and plan 1. Cellulitis: 2. Leukocytosis (leucocytosis): 3. RUSSELL (acute kidney injury): 4. Status post total left knee replacement: 5. Pain and swelling of left knee: 6. Physical deconditionin. Multiple falls: Plan: Cellulitis left leg above the left knee [place] raising concern for intra- articular infection however CT scan showed subcutaneous postsurgery inflammatory changes. High inflammatory markers - Vancomycin - Cefepime - Ortho consulted and plan for I&D and to follow the final plan - Follow blood cultures Multiple falls and physical deconditioning - PT OT Acute kidney injury likely secondary to high CPK/infection? - Currently improving and back to baseline -Adequate hydration and monitor kidney functions Deconditioning inability to take care of himself - Case management consulted for placing into halfway Type 2 diabetes mellitus: - low-dose sliding scale Disposition: Since the patient is unable to take care himself properly and is at risk of having further knee injury. [facility] referral was provided after discussing with the patient at the patient agreed. Full code Lovenox for DVT prophylaxis PDMP PDMP Reviewed: Not Reviewed Attestations 2 Medical Necessity Statement*: The patient will stay more than 2 midnights for his left knee cellulitis and Ortho evaluation for I&D. And further halfway placement Time Spent in Patient Care: 16 - 35 minutes (>than 50% of time sp ent in counselling and/or direct pt care on unit) . Coding Level of Care Code 93263 Diagnoses Cellulitis L03.90 Leukocytosis (leucocytosis) D72.829 RUSSELL (acute kidney injury) N17.9 Status post total left knee replacement Z96.652 Laterality: left Pain and swelling of left knee M25.562; M25.462 Physical deconditioning R53.81 Multiple falls R29.6
[2025-04-30] MEDS: pantoprazole 40 mg SDV IVP (09:22)
[2025-04-30] MEDS: cefepime 1,000 mg SDV 1000 MG IVP ×2 (09:22→22:13)
--- NOTE | 2025-04-30 11:03 | PC.OT ---
Hold OT treatment today (8..) due to procedure scheduled today. Will attempt OT treatment session again at later time.
--- NOTE | 2025-04-30 11:39 | ANES.PREANE2 ---
Pre-Anesthetic Assessment Height/Weight: Height 6 ft Weight 347 lb 12.8 oz Temp Pulse Resp BP Pulse Ox O2 Del Method O2 Flow Rate 98.6 F 82 16 132/68 92 Room Air 2 04/30/25 11:37 04/30/25 11:37 04/30/25 11:37 04/30/25 11:37 04/30/25 11:37 04/30/25 11:37 04/29/25 06:00 Preop Diagnosis: Infected knee joint Operation Date: 04/30/25 15:40 Proposed Procedures p Irrigation and debridement of left knee(Left) - Candelario Victoria, DO Was Beta Leonela taken within 24 hours: N/A Was Clonidine taken within 24 hours: N/A Last intake: Intake Last Liquid Date 04/29/25 Last Liquid Time 23:00 Last Solid Date 04/29/25 Last Solid Time 23:00 Social No alcohol and No tobacco Exam alert, oriented x 3, clear to auscultation bilaterally and regular rate & rhythm Airway Submandibular: within normal limits Cervical ROM: within normal limits Mallampati: Class III Comments: Comments: Implants Anesthetic Plan ASA status: 3 Anesthesia: General Other: Patient presented yesterday with concerns of infected knee joint s/p total knee arthroplasty History of hypertension on lisinopril?HCTZ. Preop BP 132/68 Chronic back pain BMI of 47 Type 2 diabetes, on metformin. Preop BS 110. Last A1c was 7.2 Recent labs reviewed acceptable for procedure EKG showing sinus rhythm Plan for general anesthesia Medications/Allergies Home Medications ?Medication ?Instructions ?Recorded ?Confirmed ?Last Taken ?Type tamsulosin 0.4 mg capsule 0.4 mg PO BEDTIME 03/15/25 04/29/25 04/28/25 20:00 History acetaminophen 500 mg tablet 1,500 mg PO BID 04/20/25 04/29/25 04/21/25 History diclofenac sodium 1 % topical gel 2 g topical QID 04/20/25 04/29/25 2 Weeks Ago History ~04/07/25 hydroxyzine HCl 25 mg tablet 25 mg PO BEDTIME 04/20/25 04/29/25 04/27/25 20:00 History metformin 1,000 mg tablet 500 mg PO BIDWMEAL 04/20/25 04/29/25 04/28/25 History hydrocodone 5 mg-acetaminophen 325 1 tab PO Q6H PRN pain #30 tabs 04/22/25 04/29/25 04/28/25 Rx mg tablet sulfamethoxazole 800 1 tab PO Q12H 10 days #20 tabs 04/27/25 04/29/25 Unknown Rx mg-trimethoprim 160 mg tablet (Bactrim DS) lisinopril 20 2 tab PO DAILY 04/29/25 04/29/25 04/28/25 History mg-hydrochlorothiazide 12.5 mg tablet Allergies Allergy/AdvReac Type Severity Reaction Status Date / Time tetracycline Allergy Severe rash Verified 04/29/25 00:09 Current Medications Generic Name Dose Route Start Last Admin Trade Name Freq PRN Reason Stop Dose Admin Cefepime HCl 1,000 mg 04/29/25 20:30 04/30/25 09:22 Cefepime 1,000 Mg Sdv IVP 1,000 mg On Hold: 04/30/25 11:34 Q12H CHRISSIE Administration Comment: Order held by Process Protocol Transfer Enoxaparin Sodium 40 mg 04/29/25 07:30 04/30/25 05:26 Enoxaparin 40 Mg/0.4 Ml Syringe SUBCUT Not Given On Hold: 04/30/25 11:34 Q24H CHRISSIE Comment: Order held by Process Transfer Lactated Ringer's 1,000 mls @ 125 mls/hr 04/29/25 09:30 04/30/25 11:30 Lactated Ringers IV Not Given On Hold: 04/30/25 11:34 .Q8H CHRISSIE Comment: Order held by Process Transfer Vancomycin HCl 1,750 mg in 350 mls @ 175 mls/hr 04/30/25 10:30 04/30/25 11:13 Vancocin IV Not Given Q12H CHRISSIE Insulin Human Lispro 0 unit 04/29/25 08:00 04/30/25 11:30 Insulin Lispro 100 Unit/1 Ml SUBCUT Not Given On Hold: 04/30/25 11:34 TIDWM CHRISSIE Comment: Order held by Process Protocol Transfer Pantoprazole Sodium 40 mg 04/29/25 07:19 04/30/25 09:22 Pantoprazole 40 Mg Sdv IVP 40 mg On Hold: 04/30/25 11:34 Q24H CHRISSIE Administration Comment: Order held by Process Transfer Tamsulosin HCl 0.4 mg 04/29/25 09:00 04/30/25 09:22 Tamsulosin 0.4 Mg Capsule PO 0.4 mg On Hold: 04/30/25 11:34 DAILY CHRISSIE Administration Comment: Order held by Process Transfer [facility] Anesthesia Medical History (Updated 04/29/25 @ 06:08 by Dominic Schilling MD) Benign prostate hyperplasia Hypertension Diabetes mellitus, type II Obesity Surgical History (Updated 04/29/25 @ 06:08 by Dominic Schilling MD) History of total knee arthroplasty Social History Smoking and tobacco/nicotine status: never used tobacco/nicotine Data Anesthesia 04/30/25 04:41 04/30/25 04:41 Short CBC 04/29/25 04/30/25 Range/Units 01:55 04:41 WBC 14.53 H 7.62 (3.29-11.43) 10^3/uL Hgb 10.20 L 9.70 L (11.27-16.99) g/dL Hct 32.4 L 32.6 L (37-53) % MCV 91.0 98.5 (82-101) fl Plt Count 350 314 (157-399) 10^3/cmm Neut % (Auto) 85.1 69.4 % Neut # (Auto) 12.36 H 5.29 (1.8-7.7) 10^3/uL BMP 04/29/25 04/30/25 01:55 04:41 Sodium 135 L 135 L Potassium 4.4 4.6 Chloride 95 L 103 Carbon Dioxide 27 20 L BUN 32 H 29 H Creatinine 2.0 H 1.1 Glucose 105 117 H Calcium 8.9 8.3 L Cardiac Enzymes 04/29/25 Range/Units 06:14 Creatine Kinase 6106 H* (39-308) U/L NT-Pro-B Natriuret Pep 168 H (0-125) pg/mL Liver Function 04/29/25 04/30/25 Range/Units 01:55 04:41 Total Bilirubin 0.5 0.4 (0.15-1.2) mg/dL AST 69 H 199 H (0-40) U/L ALT 34 67 H (0-41) U/L Alkaline Phosphatase 85 113 (40-130) U/L Albumin 3.4 L 2.6 L (3.5-5.2) g/dL Urine 04/29/25 Range/Units 06:24 Urine Color Dark yellow A (Yellow) Urine Appearance Turbid A (CLEAR) Urine pH 5.0 (5-7) Ur Specific [place] 1.022 (1.005-1.030) Urine Protein 2+ A (Negative) Urine Glucose (UA) Negative (Normal) Urine Ketones Trace (Negative) Urine Nitrate Negative (Negative) Urine Bilirubin 1+ H (Negative) Ur Leukocyte Esterase Trace A (Negative) Urine RBC 0-4 H (0-2) /hpf Urine WBC 0-4 H (0-5) /hpf Coags 04/29/25 04/29/25 01:55 06:14 ESR 30 H PT 13.10 13.10 INR 0.93 0.93 APTT 24.6 C-Reactive Protein 120.3 H Microbiology 04/29/25 01:55 Blood Culture - Preliminary Blood NEGATIVE TO DATE 04/29/25 01:57 Blood Culture - Preliminary Blood NEGATIVE TO DATE
--- NOTE | 2025-04-30 12:21 | W.PM.OPSUD ---
Surgery/Procedure H&P Update DATE OF PROCEDURE: April 30, 2025 DATE H&P PERFORMED: 04/29/25 H&P UPDATE INFORMATION: I have reviewed H&P completed within last 30 days, I have examined patient prior to procedure and No changes to prior documentation PREOP DIAGNOSIS: Infected knee joint PLANNED PROCEDURE: Operation Date: 04/30/25 15:40 Proposed Procedures p Irrigation and debridement of left knee(Left) - Candelario Victoria DO
[2025-04-30] MEDS: vancomycin 1,750 MG/350 ML PIGGYBACK 175 MG IV (12:57)
[2025-04-30] MEDS: fentaNYL 50 mcg/mL INJ 2mL IVP ×2 (14:20→14:25)
--- NOTE | 2025-04-30 14:26 | XRR_ITS ---
PROCEDURE INFORMATION: Exam: XR Left Knee Exam date and time: 04/30/2025 3:22 PM Age: 64 years old Clinical indication: Device placement; Joint replacement hardware; Prior surgery; Surgery date: Post-operative (0-2 days); Surgery type: Knee; Additional info: Postop TECHNIQUE: Imaging protocol: Radiologic exam of the left knee. Views: 1 or 2 views. COMPARISON: CT knee LT wo con* [id number] 04/29/2025 6:51 AM FINDINGS: Bones/joints: Three-part knee prosthesis in anatomic alignment. No fracture. Soft tissues: Normal. XR/XR knee LT 1-2V [id number] IMPRESSION: Intact knee prosthesis.
[2025-04-30] MEDS: HYDROmorphone 1 mg/mL INJ 1ml 0.5 MG IVP ×2 (14:30→14:40)
--- NOTE | 2025-04-30 14:31 | PM.OP ---
Operative Report Date of procedure: April 30, 2025 Pre-op diagnosis: Hematoma of left total knee arthroplasty Post-op diagnosis: same Procedure done: 1. Irrigation debridement of left knee hematoma 2. Repair of medial capsule Surgeon: Candelario Victoria DO Estimated blood loss (mL): 5 Procedure: 1. Irrigation debridement of left knee hematoma 2. Repair of medial capsule Patient brought to the operative suite after undergoing anesthesia patient was placed in the supine position. All areas impingement well-padded. Patient's prepped and draped normal sterile fashion. Nilesh were all removed. The middle nilesh as they were removed fluid came out. Once the wound was completely opened cultures were taken. And vancomycin antibiotics were started after this. There was large amounts of hematoma in the prepatellar bursa area. There was no yolanda pus in the wound at all. The medial capsule is actually ripped open from the hematoma inside the knee. This was irrigated out with large volumes of saline. And once all the hematoma was evacuated then they repair began.. I used 0 PDS to close the medial capsule. This was also attached to part of the patella tendon and the quad tendon as well. Deep drain was placed prior to closing this. Then I placed a superficial drain. And closed skin with 2-0 PDS suture and nylon suture. The 2 drains were sewn in sterile dressings were applied patient was placed in Sushil wrap and transferred back to the PACU in stable condition.
--- NOTE | 2025-04-30 15:06 | PC.SOCIAL ---
IMM Update pg 2 of IMM updated and reviewed w/ patient. Copy provided and copy dated, initialed and placed in chart.
--- NOTE | 2025-04-30 16:05 | PHA.VACGOAL ---
Vancomycin Goal - Goal Vancomycin Indication:: SSTI - Therapy Day of therpy:: Day []of [] . Actual body weight (kg): 347 lb 12.8 oz - Data Labs: WBC 7.62 10^3/uL (3.29-11.43) 04/30/25 04:41 RBC 3.31 10^6/uL (3.85-5.65) L 04/30/25 04:41 Hgb 9.70 g/dL (11.27-16.99) L 04/30/25 04:41 Hct 32.6 % (37-53) L 04/30/25 04:41 MCV 98.5 fl (82-101) 04/30/25 04:41 MCH 29.3 pg (27-33) 04/30/25 04:41 MCHC 29.8 g/dL (30-55) L D 04/30/25 04:41 RDW 14.6 % (12.1-15.1) 04/30/25 04:41 Sodium 135 mmol/L (136-145) L 04/30/25 04:41 Potassium 4.6 mmol/L (3.5-5.1) 04/30/25 04:41 Chloride 103 mmol/L (98-107) 04/30/25 04:41 Carbon Dioxide 20 mmol/L (22-29) L 04/30/25 04:41 Anion Gap 16.6 (5-19) 04/30/25 04:41 BUN 29 mg/dL (8-23) H 04/30/25 04:41 Creatinine 1.1 mg/dL (0.7-1.2) 04/30/25 04:41 GFR Calculation 67.2 mL/min (90-130) L 04/30/25 04:41 Treatment plan:: new consult Regimen:: LOADING DOSE OF 2000 MG GIVEN IN ER. PHARMACY STARTED MAINTENANCE DOSE OF 1750 MG Q12H PER PROTOCOL. WILL OBTAIN TROUGH PRIOR TO 4TH DOSE.
[2025-04-30] MEDS: morphine 4 mg/mL SDV 1 mL 2 MG IVP ×2 (16:23→20:28)
[2025-04-30] MEDS: oxyCODONE 5 mg IR Tab/Cap PO (23:49)
[2025-05-01] VITALS (9 sets, daily range): BP systolic 135–154; BP diastolic 64–75; PULSE 80–91; RESP 17–20; TEMP 36.4–36.8; O2SAT 90–97
[2025-05-01 04:57] LABS: Hematocrit 30.3 % (37-53); Hemoglobin 9.60 g/dL (11.27-16.99); Mean Corpuscular HGB Conc 31.7 g/dL (30-55); Mean Corpuscular Hemoglobin 29.2 pg (27-33); Mean Corpuscular Volume 92.1 fl (82-101); Nucleated Red Blood Cells % 0 %; Platelet Count 313 10^3/cmm (157-399); Red Blood Count 3.29 10^6/uL (3.85-5.65); White Blood Count 8.32 10^3/uL (3.29-11.43)
[2025-05-01 05:15] LABS: Alanine Aminotransferase 90 U/L (0-41); Albumin Level 3.0 g/dL (3.5-5.2); Alkaline Phosphatase 188 U/L (40-130); Anion Gap 14.9 (5-19); Aspartate Amino Transferase 196 U/L (0-40); Blood Urea Nitrogen 20 mg/dL (8-23); Calcium 8.3 mg/dL (8.5-10.5); Carbon Dioxide 26 mmol/L (22-29); Chloride 102 mmol/L (98-107); Creatinine Clr Calc Pharmacy 142.7911; Globulin 3.0 g/dL (1.3-4.6); Glucose 127 mg/dL (65-115); Osmolality Calculated 290 mOsm/kg (285-295); Potassium 4.9 mmol/L (3.5-5.1); Sodium 138 mmol/L (136-145); Total Protein 6.0 g/dL (6.6-8.7)
[2025-05-01] MEDS: oxyCODONE 5 mg IR Tab/Cap PO ×2 (06:51→17:33)
[2025-05-01] MEDS: cefepime 1,000 mg SDV 1000 MG IVP (10:20)
[2025-05-01] MEDS: vancomycin 1,750 MG/350 ML PIGGYBACK 175 MG IV ×2 (10:21→22:37)
--- NOTE | 2025-05-01 12:05 | P.PN_ITS ---
Subjective 2 Subjective: Patient seen at bedside. Patient stated that they have been to the drain once. Will keep drains in. Pain is relatively controlled he is having some pain though Vitals/I&O/Wt Last Vital Signs Temp 97.5 F L 05/01/25 11:28 Pulse 82 05/01/25 11:28 Resp 17 05/01/25 11:28 BP 154/64 05/01/25 11:28 Pulse Ox 91 05/01/25 11:28 O2 Del Method Room Air 05/01/25 11:28 O2 Flow Rate 3 04/30/25 16:11 04/30/25 05/01/25 05/01/25 22:59 06:59 14:59 Intake Total 1830 / 2310 Output Total 1550 / 2325 300 / 2625 350 / 350 Balance 280 / -15 -300 / -315 -350 / -350 Weight last 48 hrs Weight 353 lb 3.2 oz Weight 347 lb 12.8 oz Physical Exam 2 Narrative: Dressings clean dry and intact. Drains in place. Data 05/01/25 04:36 05/01/25 04:36 Micro: Microbiology 04/30/25 12:57 Gram Stain - Final Knee - Left 04/29/25 06:24 Gram Stain - Final Knee - Drainage Wound Culture - Preliminary A&P Assessment and plan 1. Status post total left knee replacement: Postop day 1 irrigation debridement of hematoma of left knee. Up with therapy Will leave drains in. PDMP PDMP Reviewed: Not Reviewed Attestations 2 Medical Necessity Statement*: Pain control Coding Level of Care Code Acute Code for Chg Fwd Diagnoses Status post total left knee replacement Z96.652
--- NOTE | 2025-05-01 13:36 | PC.OT ---
Received new OT order for evaluation and treat following left knee surgery. Patient is currently on OT case load. The goals and plan of care remain appropriate. To continue with established plan of care. Nursing notified.
--- NOTE | 2025-05-01 16:06 | PM.PN ---
Subjective Subjective: Patient seen in the morning. No acute issues overnight or concerns The patient is having left knee status post I&D with 2 wound vacs and serosanguineous discharge. Currently doing well however still feeling a little stiffness. Peripheral pulses palpable [place] with good blood flow. Vitals/I&O/Wt Last Vital Signs Temp 97.5 F L 05/01/25 11:28 Pulse 82 05/01/25 11:28 Resp 17 05/01/25 11:28 BP 154/64 05/01/25 11:28 Pulse Ox 91 05/01/25 11:28 O2 Del Method Room Air 05/01/25 11:28 O2 Flow Rate 3 04/30/25 16:11 05/01/25 05/01/25 05/01/25 06:59 14:59 22:59 Intake Total 350 / 350 Output Total 300 / 2625 350 / 350 Balance -300 / -315 0 / 0 Weight last 48 hrs Weight 160.209 kg Weight 157.759 kg Physical Exam Narrative: General: Alert oriented x3, patient seen lying on the bed without any discomfort. HEENT: Normocephalic, atraumatic, EOMI, breathing at room air Cardio: Regular rate rhythm, normal S1-S2, no murmurs rubs gallops, JVD__normal Respiratory: Good bilateral air entry, no wheezes no rhonchi appreciated GI: Abdomen soft, nontender, nondistended, normoactive bowel sounds present all 4 quadrants, Neuro: Cranial nerves II to XII intact, strength 5/5, sensation 5/5, no gross neurological deficit Behavior: Appropriate and cooperative Extremities: Left knee status post I&D and 2 wound vacs with serosanguineous discharge. Peripheral pulses palpable and good blood flow signs to the limb Data 05/01/25 04:36 05/01/25 04:36 Micro: Microbiology 04/29/25 06:24 Gram Stain - Final Knee - Drainage Wound Culture - Preliminary 04/30/25 12:57 Gram Stain - Final Knee - Left Wound Culture - Preliminary A&P Assessment and plan 1. Cellulitis: 2. Leukocytosis (leucocytosis): 3. RUSSELL (acute kidney injury): 4. Status post total left knee replacement: 5. Pain and swelling of left knee: 6. Physical deconditionin. Multiple falls: Plan: Cellulitis left leg above the left knee [place] raising concern for intra-articular infection however CT scan showed subcutaneous postsurgery inflammatory changes. High inflammatory markers - Vancomycin and cefepime to continue, follow final wound cultures and blood cultures, preliminary results are negative and tailor antibiotics accordingly -Ortho on board and to follow the recommendation (appreciate their input for this patient's management) Multiple falls and physical deconditioning - PT OT Acute kidney injury likely secondary to high CPK/infection?/Resolved -Back to baseline -Adequate hydration and monitor kidney functions Deconditioning inability to take care of himself - Case management consulted for placing into shelter Type 2 diabetes mellitus: - low-dose sliding scale Disposition: Since the patient is unable to take care himself properly and is at risk of having further knee injury. [facility] referral was provided after discussing with the patient at the patient agreed. Full code Lovenox for DVT prophylaxis PDMP PDMP Reviewed: Not Reviewed Attestations Medical Necessity Statement*: Patient will stay more than 2 midnights for his management of left knee cellulitis s/p surgery possible traumatic injury or underlying currently I&D on 2 wound vacs Time Spent in Patient Care: Greater than 35 minutes (>than 50% of time spent in counselling and/or direct pt care on unit). 45 minutes Other Attestations: Patient condition has been discussed at length with the patient/family, I have independently reviewed the chart labs imaging and diagnostics and EKG. The patient/family has been informed about the current condition and further plan of care. Agreed with the plan of care and understood without any language barrier. This documentation was created by [employer] night court magistrate software. Every effort was made to ensure accuracy of night court magistrate. Any obvious errors or omissions should be clarified with the author of the document. Coding Level of Care Code 51238 Diagnoses Cellulitis L03.90 Leukocytosis (leucocytosis) D72.829 RUSSELL (acute kidney injury) N17.9 Status post total left knee replacement Z96.652 Laterality: left Pain and swelling of left knee M25.562; M25.462 Physical deconditioning R53.81 Multiple falls R29.6 Time Spent (min) 45
[2025-05-01] MEDS: cefepime 2,000 mg SDV 2000 MG IVP (17:33)
[2025-05-02] VITALS (8 sets, daily range): BP systolic 120–163; BP diastolic 58–76; PULSE 77–84; RESP 16–18; TEMP 36.8–37; O2SAT 91–96
[2025-05-02 04:20] LABS: Hematocrit 29.7 % (37-53); Hemoglobin 9.10 g/dL (11.27-16.99); Mean Corpuscular HGB Conc 30.6 g/dL (30-55); Mean Corpuscular Hemoglobin 28.2 pg (27-33); Mean Corpuscular Volume 92.0 fl (82-101); Nucleated Red Blood Cells % 0 %; Platelet Count 347 10^3/cmm (157-399); Red Blood Count 3.23 10^6/uL (3.85-5.65); White Blood Count 6.26 10^3/uL (3.29-11.43)
[2025-05-02 04:46] LABS: Alanine Aminotransferase 70 U/L (0-41); Albumin Level 3.0 g/dL (3.5-5.2); Alkaline Phosphatase 149 U/L (40-130); Anion Gap 12.6 (5-19); Aspartate Amino Transferase 128 U/L (0-40); Blood Urea Nitrogen 15 mg/dL (8-23); Calcium 8.4 mg/dL (8.5-10.5); Carbon Dioxide 29 mmol/L (22-29); Chloride 104 mmol/L (98-107); Creatinine Clr Calc Pharmacy 144.0672; Globulin 3.1 g/dL (1.3-4.6); Glucose 108 mg/dL (65-115); Osmolality Calculated 293 mOsm/kg (285-295); Potassium 4.6 mmol/L (3.5-5.1); Sodium 141 mmol/L (136-145); Total Protein 6.1 g/dL (6.6-8.7)
[2025-05-02] MEDS: cefepime 2,000 mg SDV 2000 MG IVP ×2 (05:59→16:07)
--- NOTE | 2025-05-02 08:32 | PM.PN ---
Subjective Subjective: Patient seen in the morning. No acute issues overnight or concerns. He was sitting on the chair The patient is having left knee status post I&D with 2 drains with serosanguineous discharge currently stable Peripheral pulses palpable with good blood flow. Vitals/I&O/Wt Last Vital Signs Temp 98.2 F 05/02/25 08:16 Pulse 77 05/02/25 08:16 Resp 18 05/02/25 08:16 BP 163/74 05/02/25 08:16 Pulse Ox 92 05/02/25 08:16 O2 Del Method Room Air 05/02/25 08:16 O2 Flow Rate 3 04/30/25 16:11 05/01/25 05/02/25 05/02/25 22:59 06:59 14:59 Intake Total 840 / 1190 1350 / 2540 Output Total 910 / 1260 450 / 1710 Balance -70 / -70 900 / 830 Weight last 48 hrs Weight 158.984 kg Weight 160.209 kg Physical Exam Narrative: General: Alert oriented x3,, sitting on the chair today without any discomfort HEENT: Normocephalic, atraumatic, EOMI, breathing at room air Cardio: Regular rate rhythm, normal S1-S2, no murmurs rubs gallops, JVD__normal Respiratory: Good bilateral air entry, no wheezes no rhonchi appreciated GI: Abdomen soft, nontender, nondistended, normoactive bowel sounds present all 4 quadrants, Neuro: Cranial nerves II to XII intact, strength 5/5, sensation 5/5, no gross neurological deficit Behavior: Appropriate and cooperative Extremities: Left knee status post I&D and 2 wound drainages with serosanguineous discharge. Peripheral pulses palpable and good blood flow signs to the limb Data 05/02/25 03:13 05/02/25 03:13 Micro: Microbiology 04/30/25 12:57 Gram Stain - Final Knee - Left Anaerobic Culture - Preliminary Wound Culture - Preliminary 04/29/25 06:24 Gram Stain - Final Knee - Drainage Wound Culture - Preliminary A&P Assessment and plan 1. Cellulitis: 2. Leukocytosis (leucocytosis): 3. RUSSELL (acute kidney injury): 4. Status post total left knee replacement: 5. Pain and swelling of left knee: 6. Physical deconditionin. Multiple falls: Plan: Cellulitis left leg above the left knee [place] raising concern for intra-articular infection however CT scan showed subcutaneous postsurgery inflammatory changes. High inflammatory markers - Vancomycin and cefepime to continue, follow final wound cultures and blood cultures, preliminary results are negative and tailor antibiotics accordingly,Vancomycin trough level 16 and to tailor the dose as per trough level with pharmacist review -Ortho on board and to follow the recommendation (appreciate their input for this patient's management) Multiple falls and physical deconditioning - PT OT normocytic anemia due to blood loss: s/p left knee surgery: s/p ID as the pt had hematoma and overlying cellulitis monitor CBC, currently stable and no acute overt bleeding/blood loss Acute kidney injury likely secondary to high CPK/infection?/Resolved -Back to baseline -Adequate hydration and monitor kidney functions BPH: continue tamsulosin HTN: lisinopril 10mg OD, monitor BP discharge on home med lisinopril/HCT Deconditioning inability to take care of himself, low alb, concerning for protein calorie malnourishment - dietitian consult - Case management consulted for placing into half-way Type 2 diabetes mellitus: - low-dose sliding scale Disposition: Since the patient is unable to take care himself properly and is at risk of having further knee injury. correction referral was provided after discussing with the patient at the patient agreed. Full code Lovenox for DVT prophylaxis PDMP PDMP Reviewed: Not Reviewed Attestations Medical Necessity Statement*: Fernando Smiley's hospital stay will require greater than 2 midnights for management for left knee cellulitis, s/p surgery and hematoma drainage, for half-way Time Spent in Patient Care: 16 - 35 minutes (>than 50% of time spent in counselling and/or direct pt care on unit). Other Attestations: Patient condition has been discussed at length with the patient/family, I have independently reviewed the chart labs imaging and diagnostics and EKG. I have discussed the goals of care and code status with the patient/family/NOK/legal treasury representative, and documented accordingly. The patient/family has been informed about the current condition and further plan of care. Agreed with the plan of care and understood without any language barrier. This documentation was created by [employer] mononitrotoluene operator software. Every effort was made to ensure accuracy of mononitrotoluene operator. Any obvious errors or omissions should be clarified with the author of the document. Coding Level of Care Code 93183 Diagnoses Cellulitis L03.90 Leukocytosis (leucocytosis) D72.829 RUSSELL (acute kidney injury) N17.9 Status post total left knee replacement Z96.652 Laterality: left Pain and swelling of left knee M25.562; M25.462 Physical deconditioning R53.81 Multiple falls R29.6
[2025-05-02] MEDS: vancomycin 1,750 MG/350 ML PIGGYBACK 175 MG IV ×2 (10:27→20:36)
[2025-05-02] MEDS: oxyCODONE 5 mg IR Tab/Cap PO (10:35)
--- NOTE | 2025-05-02 13:24 | P.PN_ITS ---
Subjective 2 Subjective: Patient sitting up in chair still having pain in his knee but is improving. Vitals/I&O/Wt Last Vital Signs Temp 98.6 F 05/02/25 11:51 Pulse 77 05/02/25 11:51 Resp 16 05/02/25 11:51 BP 135/70 05/02/25 11:51 Pulse Ox 93 05/02/25 11:51 O2 Del Method Room Air 05/02/25 11:51 O2 Flow Rate 3 04/30/25 16:11 05/01/25 05/02/25 05/02/25 22:59 06:59 14:59 Intake Total 840 / 1190 1350 / 2540 2310 / 2310 Output Total 910 / 1260 450 / 1710 700 / 700 Balance -70 / -70 900 / 830 1610 / 1610 Weight last 48 hrs Weight 350 lb 8 oz Weight 353 lb 3.2 oz Physical Exam 2 Narrative: Drains continue to put out fluid we will plan to DC drains tomorrow. Data 05/02/25 03:13 05/02/25 03:13 Micro: Microbiology 04/30/25 12:57 Gram Stain - Final Knee - Left Anaerobic Culture - Preliminary Wound Culture - Preliminary 04/29/25 06:24 Gram Stain - Final Knee - Drainage Wound Culture - Preliminary A&P Assessment and plan 1. Status post total left knee replacement: Postop day #2 irrigation debridement here with hematoma Continue drains will DC drains tomorrow. PDMP PDMP Reviewed: Not Reviewed Attestations 2 Medical Necessity Statement*: Per primary service Coding Level of Care Code Acute Code for Chg Fwd Diagnoses Status post total left knee replacement Z96.652 Laterality: left
[2025-05-03 04:26] VITALS: BP 142/68; PULSE 80; RESP 17; TEMP 36.9; O2SAT 95
[2025-05-03] MEDS: cefepime 2,000 mg SDV 2000 MG IVP ×2 (05:08→17:13)
[2025-05-03 06:04] LABS: Hematocrit 30.8 % (37-53); Hemoglobin 9.60 g/dL (11.27-16.99); Mean Corpuscular HGB Conc 31.2 g/dL (30-55); Mean Corpuscular Hemoglobin 29.0 pg (27-33); Mean Corpuscular Volume 93.1 fl (82-101); Nucleated Red Blood Cells % 0 %; Platelet Count 402 10^3/cmm (157-399); Red Blood Count 3.31 10^6/uL (3.85-5.65); White Blood Count 6.36 10^3/uL (3.29-11.43)
[2025-05-03 06:25] LABS: Alanine Aminotransferase 56 U/L (0-41); Albumin Level 3.0 g/dL (3.5-5.2); Alkaline Phosphatase 121 U/L (40-130); Anion Gap 12.5 (5-19); Aspartate Amino Transferase 90 U/L (0-40); Blood Urea Nitrogen 13 mg/dL (8-23); Calcium 8.6 mg/dL (8.5-10.5); Carbon Dioxide 28 mmol/L (22-29); Chloride 104 mmol/L (98-107); Creatinine Clr Calc Pharmacy 143.4292; Globulin 3.0 g/dL (1.3-4.6); Glucose 123 mg/dL (65-115); Osmolality Calculated 291 mOsm/kg (285-295); Potassium 4.5 mmol/L (3.5-5.1); Sodium 140 mmol/L (136-145); Total Protein 6.0 g/dL (6.6-8.7)
[2025-05-03 07:53] VITALS: BP 169/79; PULSE 77; RESP 16; TEMP 36.6; O2SAT 94
--- NOTE | 2025-05-03 09:28 | PM.PN ---
Subjective Subjective: Patient lying on the bed, comfortable still having mild pain and improving and clinically much better than today. Orthopedic on board and remove the 2 drains at the left knee I&D site. Vitals/I&O/Wt Last Vital Signs Temp 97.8 F 05/03/25 07:53 Pulse 77 05/03/25 07:53 Resp 16 05/03/25 07:53 BP 169/79 05/03/25 07:53 Pulse Ox 94 05/03/25 07:53 O2 Del Method Room Air 05/03/25 07:53 O2 Flow Rate 3 04/30/25 16:11 05/02/25 05/03/25 05/03/25 22:59 06:59 14:59 Intake Total 2029.583 / 4339.583 1047.917 / 5387.500 480 / 480 Output Total 1300 / 2000 600 / 2600 700 / 700 Balance 729.583 / 2339.583 447.917 / 2787.500 -220 / -220 Weight last 48 hrs Weight 158.984 kg Weight 158.984 kg Physical Exam Narrative: General: Alert oriented x3,, lying on the bed HEENT: Normocephalic, atraumatic, EOMI, breathing at room air Cardio: Regular rate rhythm, normal S1-S2, no murmurs rubs gallops, JVD__normal Respiratory: Good bilateral air entry, no wheezes no rhonchi appreciated GI: Abdomen soft, nontender, nondistended, normoactive bowel sounds present all 4 quadrants, Neuro: Cranial nerves II to XII intact, strength 5/5, sensation 5/5, no gross neurological deficit Behavior: Appropriate and cooperative Extremities: Left knee status post I&D and removal of 2 wound drainages by Ortho peripheral pulses palpable and good blood flow signs to the limb Data 05/03/25 05:17 05/03/25 05:17 Micro: Microbiology 04/30/25 12:57 Gram Stain - Final Knee - Left Anaerobic Culture - Preliminary Wound Culture - Preliminary 04/29/25 06:24 Gram Stain - Final Knee - Drainage Wound Culture - Final A&P Assessment and plan 1. Cellulitis: 2. Leukocytosis (leucocytosis): 3. RUSSELL (acute kidney injury): 4. Status post total left knee replacement: 5. Pain and swelling of left knee: 6. Physical deconditionin. Multiple falls: Plan: Cellulitis left leg above the left knee [place] raising concern for intra-articular infection however CT scan showed subcutaneous postsurgery inflammatory changes. High inflammatory markers S/p I&D and 2 wounds drainages connected for 2 days approx and s/p removal - Vancomycin and cefepime to continue, current wound cultures and blood cultures are negative up to date negative tailor antibiotics as per pharmacy review -Ortho on board and to follow the recommendation (appreciate their input for this patient's management) Multiple falls and physical deconditioning - PT OT normocytic anemia due to blood loss: s/p left knee surgery: s/p ID as the pt had hematoma and overlying cellulitis monitor CBC, currently stable and no acute overt bleeding/blood loss Acute kidney injury likely secondary to high CPK/infection?/Resolved -Back to baseline -Adequate hydration and monitor kidney functions BPH: continue tamsulosin HTN: lisinopril 10mg OD, monitor BP discharge on home med lisinopril/HCT Deconditioning inability to take care of himself, low alb, concerning for protein calorie malnourishment - dietitian consult - Case management consulted for placing into senior care Type 2 diabetes mellitus: - low-dose sliding scale Disposition: Since the patient is unable to take care himself properly and is at risk of having further knee injury. intermediate referral was provided after discussing with the patient at the patient agreed. Full code Lovenox for DVT prophylaxis PDMP PDMP Reviewed: Not Reviewed Attestations Medical Necessity Statement*: Fernando Smiley's hospital stay will be less than 2 midnights for management of left knee cellulitis and hematoma status post left knee surgery and currently underwent I&D by Ortho. Pending placement for senior care Time Spent in Patient Care: 16 - 35 minutes (>than 50% of time spent in counselling and/or direct pt care on unit). Other Attestations: Patient condition has been discussed at length with the patient/family, I have independently reviewed the chart labs imaging and diagnostics and EKG. I have discussed the goals of care and code status with the patient/family/NOK/legal distribution sales representative, and documented accordingly. The patient/family has been informed about the current condition and further plan of care. Agreed with the plan of care and understood without any language barrier. This documentation was created by [employer] radio journalist software. Every effort was made to ensure accuracy of radio journalist. Any obvious errors or omissions should be clarified with the author of the document. Coding Level of Care Code 91125 Diagnoses Cellulitis L03.90 Leukocytosis (leucocytosis) D72.829 RUSSELL (acute kidney injury) N17.9 Status post total left knee replacement Z96.652 Laterality: left Pain and swelling of left knee M25.562; M25.462 Physical deconditioning R53.81 Multiple falls R29.6
[2025-05-03] MEDS: vancomycin 1,750 MG/350 ML PIGGYBACK 175 MG IV ×2 (10:51→20:41)
[2025-05-03 11:16] VITALS: BP 151/73; PULSE 81; RESP 16; TEMP 37; O2SAT 93
[2025-05-03 11:58] VITALS: RESP 16; O2SAT 95
[2025-05-03] MEDS: oxyCODONE 5 mg IR Tab/Cap PO (11:58)
--- NOTE | 2025-05-03 12:05 | P.PN_ITS ---
Subjective 2 Subjective: Patient is doing well complain of pain in his knee otherwise doing well. Vitals/I&O/Wt Last Vital Signs Temp 98.6 F 05/03/25 11:16 Pulse 81 05/03/25 11:16 Resp 16 05/03/25 11:16 BP 151/73 05/03/25 11:16 Pulse Ox 93 05/03/25 11:16 O2 Del Method Room Air 05/03/25 11:16 O2 Flow Rate 3 04/30/25 16:11 05/02/25 05/03/25 05/03/25 22:59 06:59 14:59 Intake Total 2029.583 / 4339.583 1047.917 / 5387.500 480 / 480 Output Total 1300 / 2000 600 / 2600 700 / 700 Balance 729.583 / 2339.583 447.917 / 2787.500 -220 / -220 Weight last 48 hrs Weight 350 lb 8 oz Weight 350 lb 8 oz Physical Exam 2 Narrative: Dressing remains clean dry intact. Drains will be removed today. Data 05/03/25 05:17 05/03/25 05:17 Micro: Microbiology 04/30/25 12:57 Gram Stain - Final Knee - Left Anaerobic Culture - Preliminary Wound Culture - Preliminary 04/29/25 06:24 Gram Stain - Final Knee - Drainage Wound Culture - Final A&P Assessment and plan 1. Status post total left knee replacement: Postop day 3 irrigation debridement of knee. DC drains Okay to discharge from an orthopedic standpoint PDMP PDMP Reviewed: Not Reviewed Attestations 2 Medical Necessity Statement*: Per primary service Coding Level of Care Code Acute Code for Chg Fwd Diagnoses Status post total left knee replacement Z96.652 Laterality: left
[2025-05-03 15:29] VITALS: BP 167/74; PULSE 75; RESP 18; TEMP 36.8; O2SAT 97
--- NOTE | 2025-05-03 17:35 | PC.NURSE ---
this nurse pulled drains per dr order. pt tolerated well. small optifoam applied to site. silverlon dressing applied to knee surgical site.
[2025-05-03 20:00] VITALS: BP 173/70; PULSE 91; RESP 18; TEMP 37.2; O2SAT 96
[2025-05-04] VITALS (7 sets, daily range): BP systolic 127–169; BP diastolic 60–75; PULSE 68–89; RESP 16–20; TEMP 36.6–37.2; O2SAT 93–96
[2025-05-04] MEDS: cefepime 2,000 mg SDV 2000 MG IVP (05:06)
[2025-05-04 05:14] LABS: Hematocrit 32.2 % (37-53); Hemoglobin 10.00 g/dL (11.27-16.99); Mean Corpuscular HGB Conc 31.1 g/dL (30-55); Mean Corpuscular Hemoglobin 28.9 pg (27-33); Mean Corpuscular Volume 93.1 fl (82-101); Nucleated Red Blood Cells % 0 %; Platelet Count 433 10^3/cmm (157-399); Red Blood Count 3.46 10^6/uL (3.85-5.65); White Blood Count 7.16 10^3/uL (3.29-11.43)
[2025-05-04 05:37] LABS: Alanine Aminotransferase 51 U/L (0-41); Albumin Level 2.9 g/dL (3.5-5.2); Alkaline Phosphatase 117 U/L (40-130); Anion Gap 12.5 (5-19); Aspartate Amino Transferase 69 U/L (0-40); Blood Urea Nitrogen 13 mg/dL (8-23); Calcium 8.8 mg/dL (8.5-10.5); Carbon Dioxide 28 mmol/L (22-29); Chloride 100 mmol/L (98-107); Creatinine Clr Calc Pharmacy 143.3109; Globulin 3.3 g/dL (1.3-4.6); Glucose 141 mg/dL (65-115); Osmolality Calculated 284 mOsm/kg (285-295); Potassium 4.5 mmol/L (3.5-5.1); Sodium 136 mmol/L (136-145); Total Protein 6.2 g/dL (6.6-8.7)
--- NOTE | 2025-05-04 09:55 | PC.CHAP ---
Pastoral Care Encounter/Spiritual Assessment Type of Contact [] Declined mother repairer visit [] Patient/Family/Request visit [] Outpatient visit [] Follow-up visit [] Physician referral [] Code/Alert [x] Routine visit [] Staff referral [] Actively dying [] Patient sleeping [] Family support [] [] Out of room [] Palliative care [] [] Receiving care in room [] Pre-surgical visit [] Trauma [] Long length of stay [] ICU visit [] Other: Relational/Emotional Strength [x] Patient feels connected with others/family/visitors/staff [] Distress [] Loneliness/isolation [] Abandonment Spirituality of Patient [x] Person of Anya [x] Attends Yarsani of their Anya [x] Believes in Prayer [x] Reads Bible or Restorationism materials [] There are Spiritual issues to be addressed Pharmacy Clinical Coordinator Interventions [x] Prayer [x] Active listening [x] Non-anxious presence [x] Spiritual/emotional support [] Crisis/trauma care [] Spiritual counseling [] Bereavement support [] Provided bereavement packet [] Provided Bible/devotional materials [] Provided toy/stuffed animal, coloring book to patient or family member [] Provided Communion [] Anointing/[place] [] Salvation [x] Completed spiritual assessment [] Other: Impact on Illness or Injury [] Angry [] Fearful [] Anxious [] Often cries [] Exhaustion [] Unable to work [] Unable to attend mormonism [] Unable to walk/stand [] Unable to read [] Unable to drive [] Unable to eat/drink [] Unable to sleep [] Unable to be with family [] Patient intubated [] Other: Summary Time spent with patient 10 min
[2025-05-04] MEDS: vancomycin 1,750 MG/350 ML PIGGYBACK 175 MG IV (10:33)
--- NOTE | 2025-05-04 13:50 | P.DS_ITS ---
Discharge Providers Date of Admission: 04/29/25 05:59 Date of Discharge: May 04, 2025 Attending Provider at Admission: Dominic Schilling MD Attending Provider at Discharge: Juliet Limon MD Primary Care Provider: Lulu Alves MD Diagnoses at Discharge Discharge Diagnosis 1. Cellulitis: 2. Leukocytosis (leucocytosis): 3. RUSSELL (acute kidney injury): 4. Status post total left knee replacement: 5. Pain and swelling of left knee: 6. Physical deconditionin. Multiple falls: Reason for Visit Reason for Visit: WEAKNESS, POST KNEE SURGERY Hospital Course Hospital Course Fernando Smiley is a 64 year old male with a past medical history hypertension, type 2 diabetes mellitus, recent history of a left knee total arthroplasty April 21, 2025, who presents [facility] for falls, severe left knee pain, drainage and bleeding coming from the left knee. Patient currently patient alert oriented x 3, following all commands, tells me that after his surgery, he has had weakness, fatigue he has had a few falls, some of those falls have resulted in him falling on his left knee, he has noticed increased serosanguineous and at times bloody drainage coming from his left knee, with increased left knee swelling, and tenderness, he does report back pain after his fall Patient had been under the care of of orthopedics who had debrided the area and irrigated the area day #4. Yesterday orthopedics verbalized and written that the patient is ready to go on the standpoint. And it was also stated that patient does not need any IV antibiotics but can be discharged on oral antibiotics. While in house patient was on vancomycin and cefepime. The legs around the knee area were swollen but much better than it was yesterday. At this time I am discharging the patient after seen and evaluated in and we will be placing patient on Bactrim 1 tablet twice daily for 10 days and also Augmentin 1 tablet p.o. twice daily for 10 days. Patient is being discharged to [facility] for therapy and for completion of oral antibiotics Physical Exam Narrative: General The patient is okay in no apparent distress and will be discharged today HEENT normocephalic/atraumatic neck neck is supple cardiovascular heart rate is regular lungs are pretty much clear abdomen soft nontender nondistended unremarkable extremities intact except for the left knee that was status post t otal knee arthroplasty with irrigation and debridement of the region. Site is still swollen but much better than it was 24 hours ago. Neurology has no focality lab studies lab studies reviewed and noted. Discharge Data Studies Completed and Pending Completed Studies During Hospitalization Category Date Time Status CT knee LT wo con* [id number] Stat Cat Scan 04/29/25 06:[address] lumbar spine wo con* [id number] Stat Cat Scan 04/29/25 06:06 Completed XR chest 1V portable [id number] Stat Exams 04/29/25 01:41 Completed XR knee LT 1-2V [id number] Routine Exams 04/30/25 14:26 Completed XR knee LT 1-2V [id number] Stat Exams 04/29/25 00:32 Completed US venous duplex lower extremity LT [CV venous duplex Ultrasound 04/29/25 01:41 [place] [id number]] Stat Pending at discharge Category Date Time Status Anaerobic Culture Routine Lab 04/30/25 12:57 Results Urinalysis Routine Lab 04/29/25 07:19 Ordered Wound Culture and Gram Stain Routine Lab 04/30/25 12:57 Results Radiology Impressions Chest X-Ray 04/29/25 01:41 IMPRESSION: No acute findings. Venous Duplex 04/29/25 01:41 IMPRESSION: There is no evidence of deep vein thrombosis associated with the left lower extremity. Knee CT 04/29/25 06:03 IMPRESSION: 1. Postoperative changes of total knee arthroplasty are noted, with evidence of extensive lateral patellar tilt and subluxation. No acute fracture is identified, with limitations of metallic artifact. 2. Recent appearing postoperative changes of the soft tissues along the anterior aspect of the knee, with evidence of an anterior gas containing fluid collection likely representing a postoperative hematoma in the suprapatellar subcutaneous fat, with extension into Hoffa's fat pad. An infectious etiology is less likely. 3. Large joint fluid collection containing a small amount of gas, likely related to the recent postoperative changes. 4. Proximal tibial-fibular joint primary osteoarthritic changes. Lumbar Spine CT 04/29/25 06:06 IMPRESSION: 1. Fragmentation of an osteophyte arising from the right lateral aspect of L4 is noted, which demonstrates CT features suggestive of a probable chronic fracture. An acute fracture is less likely. 2. Old appearing mildly displaced fractures of the right L4 transverse process. 3. Multilevel degenerative changes appear greatest at L5-S1, where neural foraminal stenosis on the right likely results in compression of the exiting right L5 nerve root. 4. Simple appearing left renal cyst with benign features. No follow-up is necessary. COMMENTS: Consistent with the [employer]'s Incidental Findings Committee white paper (J Am Rupal Radiol 2018): Any incidental renal lesion less than 1 cm or classified as too small to characterize, or any incidental cystic renal lesion characterized as simple-appearing, is likely benign. No follow-up imaging is recommended for these lesions per consensus recommendations based on imaging criteria. Knee X-Ray 04/30/25 14:26 IMPRESSION: Intact knee prosthesis. Laboratory Results WBC 7.16 10^3/uL (3.29-11.43) 05/04/25 04:53 RBC 3.46 10^6/uL (3.85-5.65) L 05/04/25 04:53 Hgb 10.00 g/dL (11.27-16.99) L 05/04/25 04:53 Hct 32.2 % (37-53) L 05/04/25 04:53 MCV 93.1 fl (82-101) 05/04/25 04:53 MCH 28.9 pg (27-33) 05/04/25 04:53 MCHC 31.1 g/dL (30-55) 05/04/25 04:53 RDW 14.2 % (12.1-15.1) 05/04/25 04:53 Plt Count 433 10^3/cmm (157-399) H 05/04/25 04:53 MPV 9.1 fL (7.4-10.4) 05/04/25 04:53 Neut % (Auto) 51.1 % 05/04/25 04:53 Lymph % (Auto) 27.0 % 05/04/25 04:53 [place] % (Auto) 12.3 % 05/04/25 04:53 Eos % (Auto) 6.4 % 05/04/25 04:53 Baso % (Auto) 1.0 % 05/04/25 04:53 Neut # (Auto) 3.66 10^3/uL (1.8-7.7) 05/04/25 04:53 Lymph # (Auto) 1.9 10^3/uL (0.8-4.8) 05/04/25 04:53 [place] # (Auto) 0.9 10^3/uL (0.2-0.9) 05/04/25 04:53 Eos # (Auto) 0.5 10^3/uL (0.0-0.8) 05/04/25 04:53 Baso # (Auto) 0.1 10^3/uL (0.0-0.1) 05/04/25 04:53 Nucleated RBC % (auto) 0 % 05/04/25 04:53 Nucleated RBCs # 0.0 /100WBC 05/04/25 04:53 ESR 30 mm/hr (0-10) H 04/29/25 01:55 PT 13.10 SECONDS (12.1-14.9) 04/29/25 06:14 INR 0.93 (0.8-1.2) 04/29/25 06:14 APTT 24.6 SECONDS (23.9-36.7) 04/29/25 01:55 Sodium 136 mmol/L (136-145) 05/04/25 04:53 Potassium 4.5 mmol/L (3.5-5.1) 05/04/25 04:53 Chloride 100 mmol/L (98-107) 05/04/25 04:53 Carbon Dioxide 28 mmol/L (22-29) 05/04/25 04:53 Anion Gap 12.5 (5-19) 05/04/25 04:53 BUN 13 mg/dL (8-23) 05/04/25 04:53 Creatinine 0.7 mg/dL (0.7-1.2) 05/04/25 04:53 GFR Calculation 113.2 mL/min (90-130) 05/04/25 04:53 Glucose 141 mg/dL (65-115) H 05/04/25 04:53 POC Glucose 142 mg/dL (70-110) H 05/04/25 10:25 Estimat Average Glucose 146 04/29/25 06:14 Hemoglobin A1c 6.7 % (4.0-6.0) H 04/29/25 06:14 Calculated Osmolality 284 mOsm/kg (285-295) L 05/04/25 04:53 Lactic Acid 0.9 mmol/L (0.5-2.2) 04/29/25 06:14 Calcium 8.8 mg/dL (8.5-10.5) 05/04/25 04:53 Total Bilirubin 0.3 mg/dL (0.15-1.2) 05/04/25 04:53 AST 69 U/L (0-40) H 05/04/25 04:53 ALT 51 U/L (0-41) H 05/04/25 04:53 Alkaline Phosphatase 117 U/L (40-130) 05/04/25 04:53 Creatine Kinase 3761 U/L (39-308) H* 05/01/25 04:36 C-Reactive Protein 120.3 mg/L (0.0-4.9) H 04/29/25 01:55 NT-Pro-B Natriuret Pep 168 pg/mL (0-125) H 04/29/25 06:14 Total Protein 6.2 g/dL (6.6-8.7) L 05/04/25 04:53 Albumin 2.9 g/dL (3.5-5.2) L 05/04/25 04:53 Globulin 3.3 g/dL (1.3-4.6) 05/04/25 04:53 Triglycerides 140 mg/dL (0-150) 04/29/25 06:14 Cholesterol 142 mg/dL (0-200) 04/29/25 06:14 LDL Cholesterol, Calc 86 mg/dL (50-129) 04/29/25 06:14 HDL Cholesterol 28 mg/dL (60-100) L 04/29/25 06:14 LDL/HDL Ratio 3.07 RATIO (0.00-3.22) 04/29/25 06:14 Cholesterol/HDL Ratio 5.07 mg/dL (1.0-5.00) H 04/29/25 06:14 Procalcitonin 0.93 ng/mL (0-0.5) H 04/29/25 06:14 TSH 1.24 uIU/mL (0.27-4.20) 04/29/25 06:14 Urine Color Dark yellow (Yellow) A 04/29/25 06:24 Urine Appearance Turbid (CLEAR) A 04/29/25 06:24 Urine pH 5.0 (5-7) 04/29/25 06:24 Ur Specific [place] 1.022 (1.005-1.030) 04/29/25 06:24 Urine Protein 2+ (Negative) A 04/29/25 06:24 Urine Glucose (UA) Negative (Normal) 04/29/25 06:24 Urine Ketones Trace (Negative) 04/29/25 06:24 Urine Blood 2+ (Negative) A 04/29/25 06:24 Urine Nitrate Negative (Negative) 04/29/25 06:24 Urine Bilirubin 1+ (Negative) H 04/29/25 06:24 Urine Urobilinogen 1.0 mg/dL (Negative) 04/29/25 06:24 Ur Leukocyte Esterase Trace (Negative) A 04/29/25 06:24 Urine RBC 0-4 /hpf (0-2) H 04/29/25 06:24 Urine WBC 0-4 /hpf (0-5) H 04/29/25 06:24 Ur Squamous Epith Cells 0-4 /hpf (0-5) H 04/29/25 06:24 Calcium Oxalate Crystal 15-25 /hpf H 04/29/25 06:24 Amorphous Sediment 1+ /hpf 04/29/25 06:24 Urine Bacteria Trace /hpf (NONE) 04/29/25 06:24 Hyaline Casts 80-100 /lpf H 04/29/25 06:24 Coarse Granular Casts 0-4 /lpf H 04/29/25 06:24 Urine Mucus 1+ /hpf 04/29/25 06:24 Nasal MRSA (PCR) Not detected (Negative) 04/29/25 09:05 Vancomycin Trough 16.0 ug/mL (10-15) H 05/02/25 09:35 Random Vancomycin 7.8 ug/mL (20.0-40.0) L 04/30/25 04:41 Vitals Last Vital Signs Temp 97.8 F 05/04/25 10:41 Pulse 82 05/04/25 10:41 Resp 20 H 05/04/25 10:41 BP 127/60 05/04/25 10:41 Pulse Ox 95 05/04/25 10:41 O2 Del Method Room Air 05/04/25 10:41 O2 Flow Rate 3 04/30/25 16:11 Discharge Plan Discharge Patient Disposition: Xfer LTC Condition: Stable Prescriptions: New amoxicillin-pot clavulanate [Augmentin] 500-125 mg tablet 1 tab PO BID Qty: 20 0RF sulfamethoxazole-trimethoprim [Bactrim DS] 800-160 mg tablet 1 tab PO BID 10 Days Qty: 20 0RF Continued tamsulosin 0.4 mg capsule 0.4 mg PO BEDTIME metformin 1,000 mg Tablet 500 mg PO BIDWMEAL hydroxyzine HCl 25 mg Tablet 25 mg PO BEDTIME diclofenac sodium 1 % Gel 2 g TOPICAL QID Rx Instructions: apply to single elbow, wrist or hand; for hand includes palm/fingers/back of hand acetaminophen 500 mg Tablet 1,500 mg PO BID hydrocodone-acetaminophen 5-325 mg tablet 1 tab PO Q6H PRN (Reason: pain) Qty: 30 0RF lisinopril-hydrochlorothiazide 20-12.5 mg Tablet 2 tab PO DAILY Discontinued sulfamethoxazole-trimethoprim [Bactrim DS] 800-160 mg tablet 1 tab PO Q12H 10 Days Qty: 20 0RF Veterinary Epidemiologist OK for DC: Orthopedics and Hospitalist Discharge Order = DC NOW: Discharge Order (Routine); Ordered 05/04/25 Ordered By: Juliet Limon Referrals: Candelario Victoria DO [Physician, Orthopedics] Lulu Alves MD [Primary Care Provider, [facility]] Discharge Diet: Cardiac and Diabetic Discharge Activity: Resume usual activity and Increase activity as tolerated Patient Instructions: Sulfamethoxazole/Trimethoprim (By mouth), Amoxicillin/Clavulanate Potassium (By mouth), Acute Wound Care (DC), Opioid Safety, Post Anesthesia Care, Patient Portal & Gianna Instructions Activity Restrictions/Additional Instructions: f/u with Dr Tristan Discharge Attestations Time Spent in Discharge Care*: greater than 30 min Quality Metrics Clinical Quality Measures [ No reported AMI, CVA or VTE this stay] Coding Level of Care Code 65525 Diagnoses Cellulitis L03.90 Leukocytosis (leucocytosis) D72.829 RUSSELL (acute kidney injury) N17.9 Status post total left knee replacement Z96.652 Laterality: left Pain and swelling of left knee M25.562; M25.462 Physical deconditioning R53.81 Multiple falls R29.6 Time Spent (min) 30
--- NOTE | 2025-05-04 15:08 | PC.NURSE ---
this nurse returned pt belongings that was locked up. returned pocket knife, keys, wallet, check for 92.00, check for 112.52, check for 682.00, larry of 207.00. pt has all belongings per request at this time at bedside until dc.
== END 2025-05-04 16:43 | disposition skilled nursing facility (03) | DRG 559 ==
LOC: ER 04-29 05:24 → MEDSURG 04-29 06:28
PROVIDERS: Orthopaedic Surgery; Student in an Organized Health Care Education/Training Program; Admitting Provider Family Medicine; Emergency Provider Emergency Medicine; PCP Family Medicine; Visit Provider Internal Medicine
PROC: 0Y9G0ZZ Drainage of Left Knee Region, Open Approach (ICD-10-PCS; principal; 2025-04-30 15:30)
DX: T84.54XA Infection and inflammatory reaction due to internal left knee prosthesis, initial encounter (principal); A41.9 Sepsis, unspecified organism; L03.116 Cellulitis of left lower limb; N17.9 Acute kidney failure, unspecified; Z68.42 Body mass index [BMI] 45.0-49.9, adult; Y79.8 Miscellaneous orthopedic devices associated with adverse incidents, not elsewhere classified; Z96.652 Presence of left artificial knee joint; I10 Essential (primary) hypertension; E11.9 Type 2 diabetes mellitus without complications; R29.6 Repeated falls; N40.0 Benign prostatic hyperplasia without lower urinary tract symptoms; E66.9 Obesity, unspecified; Z79.84 Long term (current) use of oral hypoglycemic drugs; Z79.891 Long term (current) use of opiate analgesic
CPT/HCPCS: 36415; 36416; 71045; 72131; 73560; 73700; 80053; 80061; 80202; 81001; 82550; 82962; 83036; 83605; 83880; 84145; 84443; 85025; 85610; 85651; 85730; 86140; 87040; 87070; 87075; 87205; 93971; 94664; 96365; 96372; 97110; 97116; 97162; 97165; 97530; 97535; 99285; J0692; J1171; J1650; J1815; J2270; J2470; J2704; J3010; J3372; J7030; J7120; J9999

== ENCOUNTER → 2025-05-18 13:29 | Outpatient (BNVA) | payer OTHER, SELFPAY | PROVIDERS: PCP Family Medicine; Visit Provider Orthopaedic Surgery | DX: Z96.652 Presence of left artificial knee joint (principal) | CPT/HCPCS: 73560; 73565; 99024 ==

== ENCOUNTER → 2025-07-19 11:01 | Outpatient (BNVA) | payer OTHER, SELFPAY | PROVIDERS: PCP Family Medicine; Visit Provider Orthopaedic Surgery | DX: Z98.890 Other specified postprocedural states (principal); Z96.652 Presence of left artificial knee joint | CPT/HCPCS: 73560; 73565; 99024 ==

== ENCOUNTER 2025-08-25 21:57 | Inpatient (IN) | payer OTHER, MEDICARE, SELFPAY ==
[2025-08-25 20:30] VITALS: BP 138/105; PULSE 105; RESP 24; TEMP 37.3; O2SAT 93; BMI 51.5
--- NOTE | 2025-08-25 20:46 | XRR_ITS ---
PROCEDURE INFORMATION: Exam: XR Chest Exam date and time: 08/25/2025 8:54 PM Age: 64 years old Clinical indication: Shortness of breath; Additional info: SOB x1 month, diffuse volume overload, fever, hypoxia TECHNIQUE: Imaging protocol: Radiologic exam of the chest. Views: 1 view. COMPARISON: CR XR chest 1V portable [id number] 04/29/2025 2:52 AM FINDINGS: Lungs: Left lung base consolidation related to a pleural effusion with adjacent compressive atelectasis and possible pneumonia. Subtle infiltrates to a lesser degree in the right lung base. Pleural spaces: No pneumothorax. Heart/Mediastinum: Mild cardiomegaly. Bones/joints: Unremarkable. XR/XR chest 1V portable [id number] IMPRESSION: As above.
--- NOTE | 2025-08-25 20:48 | ECG_ITS ---
[facility] Date: 2025-08-25 Pat Name: Fernando Smiley Department: Room: Gender: Male Area Field Person: : 1960 Requested By: Joselo Jeff Order Number: [id number] Gerardo MD: Cate Enriquez M.D. Measurements Intervals [place] Rate: 103 P: 63 VT: 173 QRS: 43 QRSD: 78 T: 67 QT: 323 QTc: 423 Interpretive Statements SINUS TACHYCARDIA ABNORMAL RHYTHM ECG Compared to ECG 04/06/2025 09:21:04 Sinus rhythm no longer present Electronically Signed On 08-25-2025 23:25:41 ADVICE CLERK by Cate Enriquez M.D. [email or web address]
[2025-08-25 20:56] LABS: Hematocrit 43.3 % (37-53); Hemoglobin 13.20 g/dL (11.27-16.99); Mean Corpuscular HGB Conc 30.5 g/dL (30-55); Mean Corpuscular Hemoglobin 26.2 pg (27-33); Mean Corpuscular Volume 85.9 fl (82-101); Nucleated Red Blood Cells % 0 %; Platelet Count 238 10^3/cmm (157-399); Red Blood Count 5.04 10^6/uL (3.85-5.65); White Blood Count 8.27 10^3/uL (3.29-11.43)
[2025-08-25 21:11] LABS: Troponin(5th) Baseline 41 ng/L (0-15)
--- NOTE | 2025-08-25 21:11 | ED_ITS ---
HPI - SOB/Dyspnea 2 General: Chief Complaint: ER Hold Stated Complaint: WEAKNESS History of Present Illness: HPI Narrative: 64-year-old male past medical history si gnificant for knee replacement, chronic leg swelling, BPH, hypertension, recently increased on an unknown diuretic within the past month by his primary care physician [facility] the [facility] but denies a previous diagnosis of heart failure or heart conditions, previous smoker for long time quit 8 years ago without diagnosis of COPD or home oxygen requirements, presenting to the emergency department with approximately 1 month history of progressive dyspnea, today woke up feeling acutely weak, reports that he had multiple falls secondary to his legs feeling weak today, ambulance was called by friend who found him, patient also reports that the leg redness appears to be worsening after being started on Bactrim but that the swelling of his legs is approximately at baseline. He denies any chest pain, he does endorse some swelling and pressure sensation in the bilateral legs which is chronic, he denies any pain secondary to his falls, he denies headache, he denies cough, he was reportedly febrile from EMS at 101.3 Related Data Home Medications ?Medication ?Instructions ?Recorded ?Confirmed tamsulosin 0.4 mg capsule 0.4 mg PO BEDTIME 03/15/25 1 acetaminophen 500 mg tablet 1,500 mg PO BID 04/20/25 1 diclofenac sodium 1 % topical gel 2 g topical QID 03/2407/19/25 hydroxyzine HCl 25 mg tablet 25 mg PO BEDTIME 04/20/25 07/19/25 metformin 1,000 mg tablet 500 mg PO BIDWMEAL 04/20/25 07/19/25 lisinopril 20 2 tab PO DAILY 04/29/2506/24 mg-hydrochlorothiazide 12.5 mg tablet Previous Rx's ?Medication ?Instructions ?Recorded hydrocodone 5 mg-acetaminophen 325 1 tab PO Q6H PRN pa in #30 tabs 04/22/25 mg tablet amoxicillin 500 mg-potassium 1 tab PO BID #20 tabs 09/16 clavulanate 125 mg tablet (Augmentin) Allergies Allergy/AdvReac Type Severity Reaction Status Date / Time tetracycline Allergy Severe rash Verified 07/19/25 11:11 sulfamethoxazole (From Allergy Intermediate ADR-Diarrhe Verified 07/19/25 11:11 Bactrim) a trimethoprim (From Bactrim) Allergy Intermediate ADR-Diarrhe Verified 07/19/25 11:11 a [facility] ED 2 PFSH: Medical History Benign prostate hyperplasia Hypertension Diabetes mellitus, type II Obesity Surgical History History of total knee arthroplasty Social History Smoking and tobacco/nicotine status: never used tobacco/nicotine Physical Exam 2 Narrative: EXAM NARRATIVE: Gen: A&Ox4, no acute distress, nontoxic appearing, obese HEENT: Normocephalic, atraumatic, no scleral icterus, external ears normal, moist mucous membranes Neck: Supple, full range of motion, no observable masses Lungs: No Respiratory distress, lungs with left greater than right rhonchi and wheezing, saturating 93% on 4 L nasal cannula CV: Mildly tachycardic, regular rhythm, no murmur, 3+ pitting edema to the bilateral lower extremities with symmetric redness and warmth to the bilateral lower extremities Abdomen: Soft, nondistended, nontender to palpation MSK: No joint swelling, FROM all 4 extremities Neuro: Alert and oriented, no slurred speech, sensation and strength grossly intact all 4 extremities Psych: Appropriate for situation. Course 2 Reevaluation(s): Reevaluation #1: Results of workup suggestive of left-sided pneumonia with a left sided pleural effusion and adjacent infiltrate, labs showing RUSSELL with elevated proBNP and troponin, mildly elevated Pro-Eris with normal white count and a lactate, given new oxygen requirements and left-sided opacity on chest x-ray will admit for treatment of pneumonia with consideration for possible component of associated heart failure. Time: 22:04 Vital Signs: Vital signs: Vital Signs Temperature 99.2 F 08/25/25 20:30 Pulse Rate 86 08/26/25 02:30 Respiratory Rate 21 H 08/26/25 01:07 Blood Pressure 115/62 08/26/25 02:30 Pulse Oximetry 92 08/26/25 02:30 Oxygen Delivery Me thod BiPAP 08/26/25 02:00 Oxygen Flow Rate 5 08/25/25 21:52 Fraction of Inspir ed Oxygen 40 08/26/25 01:07 MDM - SOB/Dyspnea Medical Decision Making 64-year-old male history hypertension knee replacement chronic leg swelling, former smoker, denies any known history of heart failure or COPD but is on an unknown diuretic that was reportedly increased within the past month for the leg swelling by PCP at the [facility], presenting the emergency department with progressive dyspnea x 1 month and increasing weakness times today, multiple falls, on exam patient is borderline febrile in the ER to 99.7 orally on second check, per patient was 101.3 by EMS temperature assessment, he is hypoxic requiring supplemental oxygen 4 L/min with a saturation of 94%, he does have bilateral lower extremity edema with erythema consistent with chronic hypervolemia although a component of bilateral cellulitis especially in the context of fever cannot be excluded, plan for chest x-ray to assess for pneumonia/pulmonary edema, sepsis evaluation, broad-spectrum antibiotics for coverage of skin and pulmonary sources, hold IV fluids given evidence of gross hypervolemia and concern for precipitating respiratory failure, reassess for disposition. Lab Data Labs showing no leukocytosis or anemia, RUSSELL present with creatinine from 1.5 from a baseline of 0.7, electrolytes normal, proBNP elevated 900s troponin elevated to 40s, blood gas performed with minimal acidemia 7.31 with a mild hypercapnia to 60, procalcitonin mildly elevated, lactate normal 08/25/25 20:38 08/25/25 20:38 Labs/Radiology: Radiology Impressions Chest X-Ray 08/25/25 20:46 IMPRESSION: As above. Laboratory Results WBC 8.27 10^3/uL (3.29-11.43) 08/25/25 20:38 RBC 5.04 10^6/uL (3.85-5.65) 08/25/25 20:38 Hgb 13.20 g/dL (11.27-16.99) 08/25/25 20:38 Hct 43.3 % (37-53) 08/25/25 20:38 MCV 85.9 fl (82-101) 08/25/25 20:38 MCH 26.2 pg (27-33) L 08/25/25 20:38 MCHC 30.5 g/dL (30-55) 08/25/25 20:38 RDW 15.1 % (12.1-15.1) 08/25/25 20:38 Plt Count 238 10^3/cmm (157-399) 08/25/25 20:38 MPV 9.6 fL (7.4-10.4) 08/25/25 20:38 Neut % (Auto) 79.9 % 08/25/25 20:38 Lymph % (Auto) 5.7 % 08/25/25 20:38 [place] % (Auto) 12.7 % 08/25/25 20:38 Eos % (Auto) 0.7 % 08/25/25 20:38 Baso % (Auto) 0.5 % 08/25/25 20:38 Neut # (Auto) 6.61 10^3/uL (1.8-7.7) 08/25/25 20:38 Lymph # (Auto) 0.5 10^3/uL (0.8-4.8) L 08/25/25 20:38 [place] # (Auto) 1.1 10^3/uL (0.2-0.9) H 08/25/25 20:38 Eos # (Auto) 0.1 10^3/uL (0.0-0.8) 08/25/25 20:38 Baso # (Auto) 0.0 10^3/uL (0.0-0.1) 08/25/25 20:38 Nucleated RBC % (auto) 0 % 08/25/25 20: Nucleated RBCs # 0.0 /100WBC 08/25/25 20:38 PT 13.50 SECONDS (12.1-14.9) 08/25/25 20:38 INR 0.96 (0.8-1.2) 08/25/25 20:38 APTT 26.5 SECONDS (23.9-36.7) 08/25/25 20:38 Specimen Type Venous 08/25/25 20:38 Darryl Test Pos 08/25/25 20:38 VBG pH 7.31 (7.32-7.42) L 08/25/25 20:38 VBG pCO2 60.9 mmHg (41-51) H* 08/25/25 20:38 VBG pO2 40.1 mmHg (25-40) H 08/25/25 20:38 VBG HCO3 30.8 mmol/L (24-28) H 08/25/25 20:38 VBG Base Excess 2.9 mmol/L (-3.0-3.0) 08/25/25 20:38 VBG Hematocrit 42.3 % (42-52) 08/25/25 20:38 O2 Delivery Device Nc 08/25/25 20:38 O2 Liters/Min 4.0 % 08/25/25 20:38 FiO2 36.0 % 08/25/25 20:38 Collections Representative ID [email or web address] 08/25/25 20:38 Sodium 138 mmol/L (136-145) 08/25/25 20:38 Potassium 4.7 mmol/L (3.5-5.1) 08/25/25 20:38 Chloride 97 mmol/L (98-107) L 08/25/25 20:38 Carbon Dioxide 29 mmol/L (22-29) 08/25/25 20:38 Anion Gap 16.7 (5-19) 08/25/25 20:38 BUN 33 mg/dL (8-23) H 08/25/25 20:38 Creatinine 1.5 mg/dL (0.7-1.2) H 08/25/25 20:38 GFR Calculation 47.0 mL/min (90-130) L 08/25/25 20:38 Glucose 112 mg/dL (65-115) 08/25/25 20:38 Calculated Osmolality 294 mOsm/kg (285-295) 08/25/25 20:38 Lactic Acid 1.4 mmol/L (0.5-2.2) 08/25/25 20:38 Calcium 9.2 mg/dL (8.5-10.5) 08/25/25 20:38 Magnesium 2.1 mg/dL (1.7-2.3) 08/25/25 20:38 Total Bilirubin 0.5 mg/dL (0.15-1.2) 08/25/25 20:38 AST 154 U/L (0-40) H 08/25/25 20:38 ALT 42 U/L (0-41) H 08/25/25 20:38 Alkaline Phosphatase 63 U/L (40-130) 08/25/25 20:38 Troponin T Baseline 41 ng/L (0-15) H 08/25/25 20:38 NT-Pro-B Natriuret Pep 978 pg/mL (0-125) H 08/25/25 20:38 Total Protein 7.2 g/dL (6.6-8.7) 08/25/25 20:38 Albumin 4.2 g/dL (3.5-5.2) 08/25/25 20:38 Globulin 3.0 g/dL (1.3-4.6) 08/25/25 20:38 Procalcitonin 0.74 ng/mL (0-0.5) H 08/25/25 20:38 All radiology interpretation(s) finalized by discharge ED provider radiology interpretation(s): Chest x-ray showing left basilar opacity with associated pleural effusion EKG Data EKG 1: I personally reviewed and interpreted this EKG as follows: EKG Interpretation Date: 08/25/25 EKG interpretation time: 21:16 Interpretation: Sinus tachycardia at 103 bpm, no STEMI, no ectopy, QTc 382 ms, normal axis EKG 2: I personally reviewed and interpreted this EKG as follows: EKG Interpretation Date: 08/25/25 EKG interpretation time: 21:22 Interpretation: Sinus tachycardia 101 bpm, no STEMI, no ectopy, normal axis, QTc 393 ms EKG 3: I personally reviewed and interpreted this EKG as follows: EKG Interpretation Date: 08/25/25 EKG interpretation time: 23:16 Interpretation: Sinus tachycardia at 104 bpm with occasional PACs, no STEMI, QTc 394 ms Discharge Plan Discharge Patient Disposition: Admitted As Inpatient Admit Provider: Jayce Costello Clinical Impression: Community acquired pneumonia Qualifiers: Laterality: left Lung location: lower lobe of lung Qualified Code(s): J18.9 - Pneumonia, unspecified organism Hypervolemia Qualifiers: Hypervolemia type: unspecified Qualified Code(s): E87.70 - Fluid overload, unspecified Respiratory failure Qualifiers: Chronicity: acute Respiratory failure complication: hypoxia and hypercapnia Q ualified Code(s): J96.01 - Acute respiratory failure with hypoxia Condition: Stable Coding Level of Care Code ED [employer] Mach[employer] Coordinator for Marlene Mcgregor
[2025-08-25 21:16] LABS: Procalcitonin 0.74 ng/mL (0-0.5)
[2025-08-25 21:17] LABS: Alanine Aminotransferase 42 U/L (0-41); Albumin Level 4.2 g/dL (3.5-5.2); Alkaline Phosphatase 63 U/L (40-130); Anion Gap 16.7 (5-19); Aspartate Amino Transferase 154 U/L (0-40); Base Excess VBG 2.9 mmol/L (-3.0-3.0); Blood Gas Allen Test Pos; Blood Gas LPM 4.0 %; Blood Gas Sample Type Venous; Blood Urea Nitrogen 33 mg/dL (8-23); Carbon Dioxide 29 mmol/L (22-29); Chloride 97 mmol/L (98-107); Globulin 3.0 g/dL (1.3-4.6); Glucose 112 mg/dL (65-115); HCO3 VBG 30.8 mmol/L (24-28); Magnesium 2.1 mg/dL (1.7-2.3); Osmolality Calculated 294 mOsm/kg (285-295); PO2 VBG 40.1 mmHg (25-40); Potassium 4.7 mmol/L (3.5-5.1); Sodium 138 mmol/L (136-145); Total Protein 7.2 g/dL (6.6-8.7); Venous Blood Gas Hematocrit 42.3 % (42-52); pH VBG 7.31 (7.32-7.42)
[2025-08-25 21:19] LABS: Lactic Sepsis W/Reflex 1.4 mmol/L (0.5-2.2); PCO2 VBG 60.9 mmHg (41-51)
[2025-08-25 21:20] LABS: Blood Gas Operator Identificat gerca
--- NOTE | 2025-08-25 21:22 | ECG_ITS ---
[facility] Date: 2025-08-25 Pat Name: Frenando Smiley Department: Room: Gender: Male Commodities Clerk: : 1960 Requested By: Joselo Jeff Order Number: [id number] Gerardo MD: Cate Enriquez M.D. Measurements Intervals [place] Rate: 101 P: 70 [place]: 165 QRS: 56 QRSD: 89 T: 66 QT: 335 QTc: 434 Interpretive Statements SINUS TACHYCARDIA ABNORMAL RHYTHM ECG Compared to ECG 08/25/2025 20:39:25 No significant changes Electronically Signed On 08-25-2025 23:41:12 TRAINING AND DEVELOPMENT ASSISTANT by Cate Enriquez M.D. [email or web address]
[2025-08-25] MEDS: cefepime 2,000 mg SDV 2000 MG IVP (21:29)
[2025-08-25 21:40] LABS: NT Pro B Type Natriuretic Pept 978 pg/mL (0-125)
[2025-08-25] MEDS: bumetanide 0.25 mg/mL SDV 4 mL 1 MG IVP (21:50)
[2025-08-25 21:52] VITALS: BP 130/62; PULSE 100; O2SAT 90
[2025-08-25 21:53] LABS: INR 0.96 (0.8-1.2); Partial Thromboplastin Time 26.5 SECONDS (23.9-36.7); Prothrombin Time 13.50 SECONDS (12.1-14.9)
--- OUTSIDE RECORDS SUMMARY | 2025-08-25 22:00 | XMS_ITS | Encounter Summary ---
Author Organization [employer] [facility] Address [address] [place] [address] Care Team Providers Care Manager Cardiac Name Role Phone Unavailable Primary Care Provider Unavailabl e Encounter Details Date Type Department Care Team (Latest Contact Info) Description 03/22/2006 Outpatient Historical [facility] [address] [place] [phone] Heriberto Tejada V., DO [address] [place] [phone] Pain in Joint, Shoulder Region (Primary Dx) Social History Tobacco Use Types Packs/Day Years Used Date Smoking Tobacco: Never Assessed Sex and Gender Information Value Date Recorded Sex Assigned at Not on file 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
--- OUTSIDE RECORDS SUMMARY | 2025-08-25 22:00 | XMS_ITS | Clinical Summary ---
Author Organization [employer] Address [address] 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
--- OUTSIDE RECORDS SUMMARY | 2025-08-25 22:00 | XMS_ITS | Encounter Summary ---
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
--- OUTSIDE RECORDS SUMMARY | 2025-08-25 22:00 | XMS_ITS | Encounter Summary ---
Author Organization [employer] [facility] Address [address] [place] [address] Care Team Providers Care Printing Worker Supervisor Name Role Phone Unavailable Primary Care Provider Unavailabl e Encounter Details Date Type Department Care Team (Latest Contact Info) Description 06/30/2007 Outpatient Historical [address] [address] Milena Porter, [employer] NO ADDRESS ON FILE Rash and Other Nonspecific Skin Eruption (Primary Dx) Social History Tobacco Use Types Packs/Day Years Used Date Smoking Tobacco: Never Assessed Sex and Gender Information Value Date Recorded Sex Assigned at Not on file 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
--- OUTSIDE RECORDS SUMMARY | 2025-08-25 22:00 | XMS_ITS | Data Portability ---
Author Organization [facility] Address [address] [place] [address] Assessment No assessment recorded. Plan of Treatment Reminders Order Date Submit Date Provider Last Modified By Organization Details Last Modified Time Details Appointments None record ed. Lab None record ed. Referral None record ed. Procedures None record ed. Surgeries None record ed. Imaging None record ed. Medication Orders None record ed. Patient TargetsNo targets recorded. Patient InstructionsNo instructions recorded. Reason for Referral None Reported. Problems Name Problem SNOMED Code Status Onset Date Resolution Date Notes Provider Name and Address Organization Details Recorded Time Cellulitis 012090773 Active 2024 [facility] Knee joint prosthesis present 056558456407 Active 2024 [facility] 10:30:16 Type 2 diabetes mellitus 30410587 Active 2024 [facility] 10:30:30 Acute kidney injury 55492976 Active 2024 [facility] 10:31:17 Pain of left knee region 9199742349472 09 Active 2024 [facility] 10:31:39 Effusion of joint of left knee 0225436691378 05 [facility] 10:31:52 Leukocytosi s 986423444 Active 2024 [facility] 10:32:21 Essential hypertensio n 86267809 Active 2024 [facility] 10:32:41 Malaise 012280688 Active 2024 Ivanna Rankin [facility] 5 10:33:00 Benign prostatic hyperplasia 665522986 Active 2024 [facility] 10:33:21 Anxiety disorder 401380938 Active 2024 Ivanna Rankin [facility] 5 10:34:01 History of total knee arthroplast y 8556595483311 Active [address], [address] , [facility] 15:49:12 Problem Notes None recorded. Medical Equipment None Reported. Allergies Allergen ID Allergen Name Allergen Category Reaction Reaction Severity Criticality Documentation Date Start Date Code Code System Note Provider Name and Address Organization Details Recorded Time 15188 Substance with tetracycl ine structure (substanc e) medicatio n Not available Not available Not available 05/14/2025 59443 8001 SNOMED [facility] 10:29:37 Medications Name Sig Start Date Stop Date Status Note LastModified by Organization Details LastModified Time metformin 500 mg tablet Take 1 tablet twice a day by oral route. active Not Available Not Available No t Available lisinopril 20 mg-hydrochlo rothiazide 12.5 mg tablet Take 1 tablet every day by oral route. active Not Available Not Available No t Available hydrocodone 5 mg-acetamino phen 325 mg tablet Take 1 tablet(s) every 6 hours by oral route as needed. 2024 active Not Available Not Available Not Avai lable tamsulosin 0.4 mg capsule Take 1 capsule every day by oral route at bedtime. active Not Available Not Available No t Available ibuprofen 200 mg tablet Take 3 tablets twice a day by oral route as needed. active Not Available Not Available No t Available hydroxyzine HCl 25 mg tablet Take 1 tablet every day by oral route at bedtime. active Not Available Not Available No t Available Tylenol Extra Strength 500 mg tablet Take 2 tablets every 12 hours by oral route as needed. active Not Available Not Available N ot Available diclofenac 1 % topical gel Apply to elbow, wrist, hand, palmtopical ly four times a day active Not Available Not Available Not Available Vitals Date Recorded Body height Body mass index (BMI) Body weight Oxygen saturation Heart rate Respiratory rate Body temperature Systolic And Diastolic Provider Name and Address Organization Details Last Updated DateTime 182.88 cm 49.6 kg/m2 478578. 81 g 92 % 88 /min 21 /min 97.1 [degF] 150/64 mm[Hg] Ivanna Rankin [facility] 10:28:36 Social History None recorded. Functional Status None recorded. Mental Status None recorded. Family History Nothing Reported. Medical History No medical history recorded. Immunizations Vaccine Type Date Status Note Provider Nam e and Address Organization Details Recorded Time Tdap 08/13/2024 completed Not Available [employer] 05/14/2025 08:15:14 Past Encounters Encounter ID Performer Location Encounter Start Date Encounter Closed Date Diagnosis/Indication Diagnosis SNOMED-CT Code Diagnosis ICD10 Code Diagnosis IMO Codes Diagnosis Note [id number] Alexandro Saab DO [facility]) [address] [place] [address] 05/14/2025 08:14:33 05/17/2025 14:39:03 Type 2 diabetes mellitus 62774613 E11.9 [id number] 05/14/25, continue metformin A1c was 6.6 Essential hypertension 06839946 I10 47290 05/14/25 stable, continue lisinopril 20 hctz 12.5 History of total knee arthroplasty 3971079218 105 Z96.652 [id number] 04/21/25 Dr. Victoria at [facility] Weakness o f left lower limb 3877924073 26611 R29.898 886628 improving with therapy, continue therapy, discharge home in 1-2 weeks Health Concerns Section Related Observation LastModified by Organization Detai ls LastModified Time None Recorded Concern Status LastModified by Organization Details LastModified Time None Recorded Advance Directives Directive None Recorded Payers Insurance Date Sequence Insurance Name Policy Number Policy Dye Covered Member ID Dye Member ID Guarantor Name 05/17/2025 1 [facility] (MEDICARE REPLACEMENT/A DVANTAGE - HMO) [id number] Fernando Smiley [id number] Fernando Smiley Notes Date Note Type Note Provider Name and Address Organization Details Recorded Time 05/14/2025 text/html ROS as noted in the HPI This is the first time I have evaluated this pt at this facility. PT presents today for admission for jail and rehab d/t sever left knee pain and edema, status post total knee replacement. Pt had knee replacement on 04/21/2025 at [facility]. infection with washout on 04/27/25, since this his pain has remained severe. limited on walking, significant dx of type 2 diabetes, HTN, morbid obesity. since admission, pt has tolerated rehab well, pain is controlled, blood sugar in low 100s, bp is stable A1c was 6.6 on 05/05/25 with creatinine of 0.79 Alexandro Saab DO [address] [place] [address], [address], [facility] 06/01/2025 03:11:27
--- OUTSIDE RECORDS SUMMARY | 2025-08-25 22:00 | XMS_ITS | Clinical Summary ---
Author Organization [facility] Address [address] [facility] [address] [place] [address] Phone Care Team Providers Care English Composition Instructor Name Role Phone Maynor Quinteros MD Primary Care Provider [phone] Allergies Active Allergy Reactions Criticality Noted Date Comments Levofloxacin Shortness of Breath/Wheezing High 07/27 Tetracyclines Rash Low 07/27/2023 Medications lisinopril-hydr oCHLOROthiazide (ZESTORETIC) 20-12.5 mg tablet Take 1 Tablet by mouth daily. Active glucosamine-cho ndroitin (ARTHX DS) 500-400 mg Capsule Take 2 Capsules by mouth daily. Active uvmt-ronm-tof-y ws-cgl-udbm-hor (Tumersaid) 559-650-791-125 mg Tablet Take 1 Tablet by mouth daily. Active Social History Tobacco Use Types Packs/Day Years Used Date Smoking Tobacco: Never Smokeless Tobacco: Never Tobacco Cessation:Counseling Given: Not Answered Alcohol Use Standard Drinks/Week Comments Never 0 (1 standard drink = 0.6 oz pur e alcohol) Feeling Safe Answer Date Recorded Are you in a relationship wi th someone who hurts you emotionally and/or physically? 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
--- OUTSIDE RECORDS SUMMARY | 2025-08-25 22:01 | XMS_ITS | Encounter Summary ---
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 Rash and Other Nonspecific Skin Eruption (Primary Dx); Unspecified Venous (Peripheral) Insufficiency; Obesity, Unspecified Social History Tobacco Use Types Packs/Day Years Used Date Smoking Tobacco: Never Assessed Sex and Gender Information Value Date Recorded Sex Assigned at Not on file Legal Sex Male 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
[2025-08-25 22:09] LABS: Calcium 9.2 mg/dL (8.5-10.5)
--- NOTE | 2025-08-25 23:16 | ECG_ITS ---
[facility]25[facility]25 Pat Name: Fernando Smiley Department: Room: ED Gender: Male [employer] Member: : 1960 Requested By: Joselo Jeff Order Number: [id number] Gerardo MD: Cate Enriquez M.D. Measurements Intervals [place] Rate: 104 P: 70 ME: 171 QRS: 40 QRSD: 76 T: 59 QT: 333 QTc: 440 Interpretive Statements SINUS TACHYCARDIA WITH OCCASIONAL ECTOPIC PREMATURE COMPLEXES ABNORMAL RHYTHM ECG Compared to ECG 08/25/2025 21:22:30 No significant changes Electronically Signed On 08-25-2025 23:40:57 IN HOME AIDE by Cate Enriquez M.D. [email or web address]
[2025-08-25 23:38] LABS: Glucose Urine UA Negative (Normal); Nitrate Urine Negative (Negative); Specific Gravity, Urine 1.009 (1.005-1.030)
[2025-08-25 23:43] LABS: Add Urine Microscopic? YES
--- NOTE | 2025-08-25 23:50 | PM.HP ---
Providers/Chief Complaint Admitting Physician: Jayce Costello MD Primary Care Provider: Lulu Alves MD Chief Complaint: WEAKNESS History of Present Illness Fernando Smiley is a 64 year old male with history significant for hypertension who presents with complaints of weakness and falls. He states on the morning of presentation, he felt like he had no strength in his arms and legs. He reports falling today and having to call his neighbor for help. He was on the ground most of the day he says, having to crawl from room to room. When his neighbor arrived, he called EMS for assistance. Patient states he was told he had a fever. He says he has had shortness of breath for the past month. No chest pain, nausea, vomiting, or diarrhea. He also reports a rash on his arms and trunk for the past month to which he has started to take an old prescription of bactrim for. Medications/Allergies Home Medications ?Medication ?Instructions ?Recorded ?Confirmed ?Last Taken ?Type tamsulosin 0.4 mg capsule 0.4 mg PO BEDTIME 03/15/25 07/19/25 04/28/25 20:00 History acetaminophen 500 mg tablet 1,500 mg PO BID 04/20/25 07/19/25 04/21/25 History diclofenac sodium 1 % topical gel 2 g topical QID 04/20/25 07/19/25 2 Weeks Ago History ~04/07/25 hydroxyzine HCl 25 mg tablet 25 mg PO BEDTIME 04/20/25 07/19/25 04/27/25 20:00 History metformin 1,000 mg tablet 500 mg PO BIDWMEAL 04/20/25 07/19/25 04/28/25 History hydrocodone 5 mg-acetaminophen 325 1 tab PO Q6H PRN pain #30 tabs 04/22/25 07/19/25 04/28/25 Rx mg tablet lisinopril 20 2 tab PO DAILY 04/29/25 07/19/25 04/28/25 History mg-hydrochlorothiazide 12.5 mg tablet amoxicillin 500 mg-potassium 1 tab PO BID #20 tabs 05/04/25 07/19/25 Unknown Rx clavulanate 125 mg tablet (Augmentin) Allergies Allergy/AdvReac Type Severity Reaction Status Date / Time tetracycline Allergy Severe rash Verified 07/19/25 11:11 sulfamethoxazole (From Allergy Intermediate ADR-Diarrhe Verified 07/19/25 11:11 Bactrim) a trimethoprim (From Bactrim) Allergy Intermediate ADR-Diarrhe Verified 07/19/25 11:11 a PFSH Acute PFSH: Medical History (Updated 08/26/25 @ 00:10 by Jayce Costello MD) Benign prostate hyperplasia Hypertension Diabetes mellitus, type II Obesity Surgical History History of total knee arthroplasty Social History Smoking and tobacco/nicotine status: never used tobacco/nicotine Vitals/I&O/Wt Last Vital Signs Temp 99.2 F 08/25/25 20:30 Pulse 100 08/25/25 21:52 Resp 24 H 08/25/25 20:30 BP 130/62 08/25/25 21:52 Pulse Ox 90 08/25/25 21:52 O2 Del Method Nasal Cannula 08/25/25 21:52 O2 Flow Rate 5 08/25/25 21:52 Weight last 48 hrs Weight 172.365 kg Physical Exam Const: COMMON NORMALS: no acute distress, patient oriented x3 and well nourished (Obese) Resp: OTHER: Diminished breath sounds bilaterally. No wheeze Cardio: COMMON NORMALS: regular rate, regular rhythm, S1 normal heart sound present, S2 normal heart sound present, No gallops present (Cardio), No clicks present (Cardio), No murmurs present (Cardio) and No rub (Cardio) GI: OTHER: Protuberant abdomen Extremity: OTHER: Lower extremities below the knees are reddened. No pitting edema Neuro: COMMON NORMALS: patient oriented x3 and CN's II-XII intact bilaterally Skin: OTHER: Areas of redness and excoriation noted to the trunk and upper extremities. Bilateral redness to the lower extremities below the knees Data 08/25/25 20:38 08/25/25 20:38 Micro: Microbiology 08/25/25 21:48 Blood Culture - Preliminary Blood SPECIMEN COLLECTED 08/25/25 21:42 Blood Culture - Preliminary Blood SPECIMEN COLLECTED A&P Assessment and plan 1. Acute hypercapnic respiratory failure: 2. RUSSELL (acute kidney injury): 3. Rash: 4. Generalized weakness: 5. Community acquired pneumonia: 6. Hypertension: 7. Multiple falls: Plan: Community acquired pneumonia Acute hypercapnic respiratory failure Rash - Continue antibiotics with Azithromycin and Rocephin - Check sputum culture - Start Bipap - Wean O2 as tolerated - Rash possibly secondary to PNA? Treat pneumonia and follow - Consider echocardiogram RUSSELL HTN - Patient given bumex in the ED. Will watch BMP and see how it will effect renal function - Patient has been taking his lisinopril-hctz he reports and says he does not drink enough fluid. Hold this med Generalized weakness Falls - Likely from the above. Treat as outlines Venous stasis dermatitis - Follow Type 2 DM - SSI PDMP PDMP Reviewed: Not Reviewed Attestations Medical Necessity Statement*: Patient will require greater than two midnights to manage his respiratory failure and pneumonia Coding Level of Care Code Acute Code for [facility] Diagnoses Acute hypercapnic respiratory failure J96.02 RUSSELL (acute kidney injury) N17.9 Rash R21 Generalized weakness R53.1 Community acquired pneumonia J18.9 Hypertension I10 Multiple falls R29.6
[2025-08-26] VITALS (78 sets, daily range): BP systolic 98–135; BP diastolic 50–77; PULSE 75–129; RESP 12–29; TEMP 36.6–36.8; O2SAT 87–98
--- NOTE | 2025-08-26 01:29 | PC.NURSE ---
report given to inez munroe
--- NOTE | 2025-08-26 02:08 | PC.NURSE ---
THIS RN ASSUMED CARE @0100. PT BED SOILED - LINENS CHANGES AND PT PLACED INTO GOWN. PT ROOM CLEANED.
[2025-08-26 02:43] LABS: Respiratory Syncytial Virus Ce NEGATIVE (Negative); SARS-CoV-2 PCR NEGATIVE (Negative)
--- NOTE | 2025-08-26 02:48 | ECG_ITS ---
[facility]: 2025-08-26 Pat Name: Fernando Smiley Department: Room: ED Gender: Male Tests Superintendent: : 1960 Requested By: Joselo Jeff Order Number: [id number] Gerardo MD: Cate Enriquez M.D. Measurements Intervals [place] Rate: 90 P: 76 DC: 167 QRS: 49 QRSD: 86 T: 62 QT: 363 QTc: 446 Interpretive Statements SINUS RHYTHM WITH OCCASIONAL SUPRAVENTRICULAR PREMATURE COMPLEXES POSSIBLE RIGHT VENTRICULAR CONDUCTION DELAY [RSR (QR) IN V1/V2] Compared to ECG 08/25/2025 23:16:33 Sinus tachycardia no longer present Electronically Signed On 08-27-2025 19:02:47 INSOLE RASPER by Cate Enriquez M.D. [email or web address]
[2025-08-26 03:56] LABS: Base Excess VBG 3.4 mmol/L (-3.0-3.0); Blood Gas Allen Test Pos; Blood Gas Operator Identificat gerca; Blood Gas Sample Type Venous; HCO3 VBG 30.6 mmol/L (24-28); PCO2 VBG 57.7 mmHg (41-51); PO2 VBG 35.7 mmHg (25-40); Venous Blood Gas Hematocrit 37.6 % (42-52); pH VBG 7.33 (7.32-7.42)
[2025-08-26 03:57] LABS: PEEP 0.0 cmH20
[2025-08-26] MEDS: cefTRIAXone 1,000 mg SDV 1000 MG IVP (05:07)
--- NOTE | 2025-08-26 08:26 | PC.NURSE ---
Patient transferred from ED to CSU at 0813 via a bed.
--- NOTE | 2025-08-26 09:03 | PC.PHAR ---
Pt is continuously on bipap and is confused about what he takes. The only pharmacy listed on pts' profile is [facility] (which is heat sealed cards [facility]).
[2025-08-26 09:11] LABS: Hematocrit 38.9 % (37-53); Hemoglobin 11.80 g/dL (11.27-16.99); Mean Corpuscular HGB Conc 30.3 g/dL (30-55); Mean Corpuscular Hemoglobin 26.4 pg (27-33); Mean Corpuscular Volume 87.0 fl (82-101); Nucleated Red Blood Cells % 0 %; Platelet Count 211 10^3/cmm (157-399); Red Blood Count 4.47 10^6/uL (3.85-5.65); White Blood Count 5.64 10^3/uL (3.29-11.43)
[2025-08-26 09:26] LABS: Troponin 5 6HR 36.97 ng/L (0-15)
[2025-08-26 09:30] LABS: Troponin 5 6HR Delta -4.03 ng/L (0-12)
[2025-08-26 10:19] LABS: Anion Gap 13.5 (5-19); Blood Urea Nitrogen 36 mg/dL (8-23); Calcium 8.4 mg/dL (8.5-10.5); Carbon Dioxide 31 mmol/L (22-29); Chloride 99 mmol/L (98-107); Glucose 125 mg/dL (65-115); Osmolality Calculated 298 mOsm/kg (285-295); Potassium 4.5 mmol/L (3.5-5.1); Sodium 139 mmol/L (136-145)
--- NOTE | 2025-08-26 17:49 | P.PN_ITS ---
Subjective 2 Subjective: 08/25/25 Fernando Smiley is a 64 year old male with history significant for BPH, HTN, DMII, and obesity presenting with complaints of weakness and falls. He states on the morning of presentation, he felt like he had no strength in his arms and legs. He reports falling today and having to call his neighbor for help. He was on the ground most of the day he says, having to crawl from room to room. When his neighbor arrived, he called EMS for assistance. Patient states he was told he had a fever. He says he has had shortness of breath for the past month. No chest pain, nausea, vomiting, or diarrhea. He also reports a rash on his arms and trunk for the past month to which he has started to take an old prescription of bactrim for. 08/26/25 Patient resting at time of interview. He wanted to note that he may have had an outpatient MRI scheduled with his primary at the [facility]. He could not tell me for what indication or extremity. Patient BP 119 systolic. Continuing monitoring and treatment with IV antibiotics for pneumonia. Home health vs. SNF at discharge. Vitals/I&O/Wt Last Vital Signs Temp 98.2 F 08/26/25 04:00 Pulse 83 08/26/25 16:00 Resp 25 H 08/26/25 16:00 BP 121/58 08/26/25 16:00 Pulse Ox 96 08/26/25 16:00 O2 Del Method Nasal Cannula 08/26/25 08:27 O2 Flow Rate 4 08/26/25 05:00 FiO2 40 08/26/25 08:00 08/26/25 08/26/25 08/26/25 06:59 14:59 22:59 Intake Total 700 / 700 360 / 360 Output Total 475 / 475 400 / 400 Balance 225 / 225 -40 / -40 Weight last 48 hrs Weight 181 kg Weight 172.365 kg Physical Exam 2 Const: COMMON NORMALS: no acute distress and patient oriented x3 Resp: OTHER: Diminished breath sounds bilaterally. No wheeze Cardio: COMMON NORMALS: regular rate and regular rhythm RATE: regular rate RHYTHM: regular rhythm GI: INSPECTION: Yes abdominal distension OTHER: Protuberant abdomen Neuro: COMMON NORMALS: patient oriented x3 and CN's II-XII intact bilaterally Skin: NARRATIVE SKIN EXAM: Bilateral lower legs are ruborous, non-pitting Data 08/26/25 08:43 08/26/25 08:43 Micro: Microbiology 08/25/25 21:48 Blood Culture - Preliminary Blood SPECIMEN COLLECTED 08/25/25 21:42 Blood Culture - Preliminary Blood SPECIMEN COLLECTED A&P Assessment and plan 1. Community acquired pneumonia: Flu, RSV, and Covid CXR; left lung base consolidation related to a pleural effusion with adjacent compressive atelectasis and possible pneumonia, subtle infiltrates, see full results Continue antibiotics with Azithromycin and Rocephin Sputum culture Bipap Wean O2 as tolerated Echo pending 2. Acute hypercapnic respiratory failure: PNA treatment as above Supplemental o2 to keep saturations greater than 92% Pulse oximetry 3. RUSSELL (acute kidney injury): Patient given bumex in the ED. Will watch BMP and see how it will effect renal function Patient has been taking his lisinopril-hctz he reports and says he does not drink enough fluid. Hold this med 4. Rash: Rash possibly secondary to PNA? Treat pneumonia and follow 5. Generalized weakness: With multiple falls Fall risk precautions PT prior to discharge 6. Hypertension: Diuretics with renal function considerations as above 7. Venous stasis dermatitis: Follow with PCP outpatient at discharge PDMP PDMP Reviewed: Not Reviewed Attestations 2 Medical Necessity Statement*: Continued hospitalization for greater than two midnights secondary to treatment of pneumonia. Diagnoses Community acquired pneumonia J18.9 Acute hypercapnic respiratory failure J96.02 RUSSELL (acute kidney injury) N17.9 Rash R21 Generalized weakness R53.1 Hypertension I10 Venous stasis dermatitis I87.2
[2025-08-27 04:00] VITALS: BP 121/68; PULSE 83; RESP 23; TEMP 36.6; O2SAT 96
[2025-08-27] MEDS: cefTRIAXone 1,000 mg SDV 1000 MG IVP (04:13)
--- NOTE | 2025-08-27 07:43 | USCV_ITS ---
Fernando Smiley Age: 64 Gender: M : 1960 Exam Date: 08/27/2025 13:37 Ordering Phys: Tete Perry NP Technologist: Gian Mora [place] [facility] [place]: chf BP: 137 / 73 HR: 85 Rhythm: Sinus Technical Quality: Adequate MEASUREMENTS (Male / Female) Normal Values 2D ECHO LV Diastolic Diameter PLAX 4.8 cm 4.2 - 5.9 / 3.9 - 5.3 cm IVS Diastolic Thickness 1.2 cm 0.6 - 1.0 / 0.6 - 0.9 cm IVS Systolic Thickness 2.0 cm LVPW Diastolic Thickness 0.9 cm 0.6 - 1.0 / 0.6 - 0.9 cm LVPW Systolic Thickness 2.0 cm LVOT Diameter 2.3 cm LV Ejection Fraction 2D Teich 75.5 % LV Ejection Fraction MOD 4C 80.0 % LV Ejection Fraction MOD 2C 55.7 % LV Ejection Fraction 2C AL 57.8 % LA Diameter 4.3 cm RA Systolic Volume 4C AL 77.7 ml RA Systolic Volume 4C MOD 74.3 ml LA Sys Volume AL 69.7 cm cubed LA Sys Volume Index AL 22.3 cm cubed/m squared Aorta at Sinotubular Diameter 2.7 cm IVC Diameter 2.6 cm M-MODE LA Ao Ratio MM 1.5 AV Cusp Separation MM 2.6 cm DOPPLER AV Peak Velocity 142.0 cm/s LVOT Peak Velocity 131.0 cm/s AV Area Cont Eq vti 4.5 cm squared AV Area Cont Eq pk 3.7 cm squared MV Peak Velocity 126.0 cm/s MV Area PHT 5.2 cm squared Mitral E to A Ratio 1.4 TV Peak Velocity 253.5 cm/s TR Peak Velocity 261.0 cm/s TR Peak Gradient 27.2 mmHg TR Mean Velocity 211.0 cm/s TR Mean Gradient 18.2 mmHg TR Velocity Time Integral 81.0 cm PV Peak Velocity 90.7 cm/s RV Ejection Time 0.3 s FINDINGS Left Ventricle Normal left ventricular size, systolic function and wall thickness, with no regional wall motion abnormalities. Left ventricular ejection fraction is estimated at 60 %. Grade II/IV diastolic dysfunction, moderately elevated filling pressures. Right Ventricle Normal right ventricular size and systolic function. Right Atrium Normal right atrial size. Left Atrium Normal left atrial size. IA Septum Normal appearance of the interatrial septum. Mitral Valve Moderately thickened mitral valve. Moderate mitral annular calcification. No mitral valve stenosis. Trace mitral valve regurgitation. Aortic Valve Moderate aortic valve calcification. No aortic valve stenosis. Trace aortic valve regurgitation. Tricuspid Valve Normal tricuspid valve structure. No tricuspid valve stenosis or regurgitation. Normal pulmonary pressure. Pulmonic Valve Normal pulmonic valve structure. No pulmonic valve stenosis or regurgitation. Pericardium No pericardial effusion. Aorta Normal diameter of the aortic root and ascending thoracic aorta. IVC Normal IVC diameter. CONCLUSIONS Normal left ventricular size, systolic function and wall thickness, with no regional wall motion abnormalities. Left ventricular ejection fraction is estimated at 60 %. Grade II/IV diastolic dysfunction, moderately elevated filling pressures. No significant valve abnormalities. There is no pericardial effusion. Right atrial pressure is around 5 mm of mercury. Ashley Downs MD (Electronically Signed) Final Date: 28 August 2025 18:35 S
[2025-08-27 07:49] VITALS: BP 137/73; PULSE 80; RESP 19; TEMP 36.6; O2SAT 93
[2025-08-27 08:47] LABS: Hematocrit 41.1 % (37-53); Hemoglobin 12.00 g/dL (11.27-16.99); Mean Corpuscular HGB Conc 29.2 g/dL (30-55); Mean Corpuscular Hemoglobin 26.3 pg (27-33); Mean Corpuscular Volume 89.9 fl (82-101); Nucleated Red Blood Cells % 0 %; Platelet Count 193 10^3/cmm (157-399); Red Blood Count 4.57 10^6/uL (3.85-5.65); White Blood Count 7.76 10^3/uL (3.29-11.43)
[2025-08-27 09:11] LABS: Alanine Aminotransferase 91 U/L (0-41); Albumin Level 3.5 g/dL (3.5-5.2); Alkaline Phosphatase 58 U/L (40-130); Anion Gap 12.7 (5-19); Aspartate Amino Transferase 409 U/L (0-40); Blood Urea Nitrogen 33 mg/dL (8-23); Calcium 8.3 mg/dL (8.5-10.5); Carbon Dioxide 31 mmol/L (22-29); Chloride 98 mmol/L (98-107); Globulin 3.2 g/dL (1.3-4.6); Glucose 132 mg/dL (65-115); Osmolality Calculated 293 mOsm/kg (285-295); Potassium 4.7 mmol/L (3.5-5.1); Sodium 137 mmol/L (136-145); Total Protein 6.7 g/dL (6.6-8.7)
--- NOTE | 2025-08-27 10:27 | P.PN_ITS ---
Subjective 2 Subjective: Patient resting in bed, no family members noted at bedside during my evaluation. Discussion of plans to work with PT/OT, home oxygen evaulation, and obtaining an Echo for today with plans to discharge tomorrow with HH or possibly SNF pending PT/ OT evaluation. Patient agreed to plan of care. Vitals/I&O/Wt Last Vital Signs Temp 97.9 F 08/27/25 07:49 Pulse 80 08/27/25 07:49 Resp 19 H 08/27/25 07:49 BP 137/73 08/27/25 07:49 Pulse Ox 93 08/27/25 07:49 O2 Del Method Nasal Cannula 08/27/25 04:00 O2 Flow Rate 4 08/26/25 05:00 FiO2 40 08/26/25 08:00 08/26/25 08/27/25 08/27/25 22:59 06:59 14:59 Intake Total 360 / 720 250 / 970 240 / 240 Output Total 300 / 700 125 / 125 Balance 360 / 320 -50 / 270 115 / 115 Weight last 48 hrs Weight 181 kg Weight 172.365 kg Physical Exam 2 Narrative: General: A&Ox4, resting in bed. No apparent distress. HEENT: Normo-cephalic, atraumatic, grossly unremarkable exam Cardio: NSR, normal S1-S2 w/o any murmurs, rubs, or gallops and JVD normal Respiratory: Wheezes to bilateral lower bases auscultation w/o any wheezes, stridor, rhonchi GI: Abd soft, non-tender, round, normo-active bowel sounds present Neuro: Moves all extremities, no sensory deficits, Normal speech Behavior: Appropriate and cooperative Extremities: Adequate palpable pulses. Bilateral lower legs ruborous, non- pitting. Data 08/27/25 08:32 08/27/25 08:32 Other Labs: 08/25: CXR: reviewed and results as follows: Left lung base consolidation related to a pleural effusion with adjacent compressive atelectasis and possible pneumonia. Subtle infiltrates to a lesser degree in the right lung base. No pneumothorax. Mild cardiomegaly. Micro: Microbiology 08/25/25 21:48 Blood Culture - Preliminary Blood NEGATIVE TO DATE 08/25/25 21:42 Blood Culture - Preliminary Blood NEGATIVE TO DATE A&P Assessment and plan 1. Community acquired pneumonia: 2. Acute hypercapnic respiratory failure: 3. RUSSELL (acute kidney injury): 4. Benign prostate hyperplasia: 5. Generalized weakness: 6. Venous stasis dermatitis: Plan: Community acquired pneumonia Acute Hypercapnic respiratory failure Rash 08/25: CXR: left lung base consolidation related to a pleural effusion with adjacent compressive atelectasis and possible pneumonia, subtle infiltrates Flu/RSV/COVID negative Sputum culture ordered 08/25: Blood Cultures obtained, pending. NGTD O2 protocol, BiPAP ordered V/S q4hr, continuous cardiac monitoring, continuous pulse ox monitoring Echo ordered, pending Continue IV abx Azithromycin, Rocephin CBC, CMP, Mag dly. RUSSELL, resolved. 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 DM2 A1c ordered, pending Hold home medication metformin Blood glucose monitoring, ACHS Low regimen sliding scale Hypoglycemic protocol BPH Continue home medication tamsulosin 0.4mg PO Generalized Weakness Hx of multiple falls Fall precautions PT/OT orders HTN BP stable, monitor V/S q4h Home medication lisinopril-hctz due to RUSSELL Venous Statis dermatitis Follow outpt w/ PCP CODE STATUS: Full Code VTE ppx: Lovenox 40mg subq dly PDMP PDMP Reviewed: Not Reviewed Attestations 2 Medical Necessity Statement*: Continued hospitalization for greater than two midnights secondary to treatment of pneumonia, generalized weakness needing PT/OT consult. Coding Level of Care Code 10372 Diagnoses Community acquired pneumonia J18.9 Acute hypercapnic respiratory failure J96.02 RUSSELL (acute kidney injury) N17.9 Benign prostate hyperplasia N40.0 Generalized weakness R53.1 Venous stasis dermatitis I87.2
[2025-08-27 11:40] LABS: Estmated Average Glucose 166; Hemoglobin A1C 7.4 % (4.0-6.0)
[2025-08-27 11:41] LABS: Cholesterol 132 mg/dL (0-200); HDL Cholesterol 31 mg/dL (60-100); Triglycerides 136 mg/dL (0-150)
[2025-08-27 12:08] LABS: Thyroid Stimulating Hormone 2.12 uIU/mL (0.27-4.20)
--- NOTE | 2025-08-27 12:28 | PC.SOCIAL ---
IMM Update pg 2 of IMM updated and reviewed w/ patient. Copy provided and copy dated, initialed and placed in chart.
[2025-08-27 15:58] VITALS: O2SAT 82; O2SAT 91
[2025-08-27 16:00] VITALS: BP 137/70
--- NOTE | 2025-08-27 19:04 | PC.NURSE ---
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
[2025-08-27 20:00] VITALS: BP 155/73; PULSE 78; RESP 23; TEMP 37.1; O2SAT 95
[2025-08-28] VITALS: BP 144/82; PULSE 76; RESP 20; TEMP 36.6; O2SAT 91
[2025-08-28 03:11] LABS: Hematocrit 42.5 % (37-53); Hemoglobin 12.10 g/dL (11.27-16.99); Mean Corpuscular HGB Conc 28.5 g/dL (30-55); Mean Corpuscular Hemoglobin 25.7 pg (27-33); Mean Corpuscular Volume 90.4 fl (82-101); Nucleated Red Blood Cells % 0 %; Platelet Count 184 10^3/cmm (157-399); Red Blood Count 4.70 10^6/uL (3.85-5.65); White Blood Count 6.53 10^3/uL (3.29-11.43)
[2025-08-28 03:30] LABS: Alanine Aminotransferase 91 U/L (0-41); Albumin Level 3.7 g/dL (3.5-5.2); Alkaline Phosphatase 60 U/L (40-130); Anion Gap 8.6 (5-19); Aspartate Amino Transferase 325 U/L (0-40); Blood Urea Nitrogen 30 mg/dL (8-23); Calcium 8.6 mg/dL (8.5-10.5); Carbon Dioxide 36 mmol/L (22-29); Chloride 97 mmol/L (98-107); Creatinine Clr Calc Pharmacy 137.6852; Globulin 3.1 g/dL (1.3-4.6); Glucose 131 mg/dL (65-115); Osmolality Calculated 292 mOsm/kg (285-295); Potassium 4.6 mmol/L (3.5-5.1); Sodium 137 mmol/L (136-145); Total Protein 6.8 g/dL (6.6-8.7)
[2025-08-28 04:00] VITALS: BP 101/72; PULSE 65; RESP 20; TEMP 36.8; O2SAT 90
[2025-08-28] MEDS: cefTRIAXone 1,000 mg SDV 1000 MG IVP (05:12)
[2025-08-28 08:00] VITALS: BP 165/76; PULSE 75; RESP 24; TEMP 36.4; O2SAT 94
--- NOTE | 2025-08-28 08:40 | PM.DCS ---
Discharge Providers Date of Admission: 08/25/25 22:09 Date of Discharge: August 28, 2025 Attending Provider at Admission: Jayce Costello MD Attending Provider at Discharge: Tete Perry NP Primary Care Provider: Lulu Alves MD Diagnoses at Discharge Discharge Diagnosis 1. Community acquired pneumonia: 2. Acute hypercapnic respiratory failure: 3. RUSSELL (acute kidney injury): 4. Benign prostate hyperplasia: 5. Generalized weakness: 6. Venous stasis dermatitis: Reason for Visit Reason for Visit: WEAKNESS Brief History: Admission: Fernando Smiley is a 64 year old male with history significant for hypertension who presents with complaints of weakness and falls. He states on the morning of presentation, he felt like he had no strength in his arms and legs. He reports falling today and having to call his neighbor for help. He was on the ground most of the day he says, having to crawl from room to room. When his neighbor arrived, he called EMS for assistance. Patient states he was told he had a fever. He says he has had shortness of breath for the past month. No chest pain, nausea, vomiting, or diarrhea. He also reports a rash on his arms and trunk for the past month to which he has started to take an old prescription of bactrim for. Hospital Course Hospital Course Community acquired pneumonia Acute hypoxic respiratory failure Rash 08/25: CXR: left lung base consolidation related to a pleural effusion with adjacent compressive atelectasis and possible pneumonia, subtle infiltrates Flu/RSV/COVID negative 08/25: Blood Cultures obtained - negative qualified for home oxygen 4Lpm via n/c V/S q4hr, continuous cardiac monitoring, continuous pulse ox monitoring Echo ordered, Results pending at discharge Transitioned to oral antibiotics at discharge RUSSELL, resolved. 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 Discharges with home oxygen 4 L/min via nasal cannula, home nebulizer prescribed. Patient is advised to follow-up with primary care provider within 1 to 2 days of discharge. Patient continues oral antibiotic therapy, prescribed at discharge. Echo results pending, advised follow-up with primary care provider for results. All questions and concerns addressed to the patient prior to discharge. Physical Exam Narrative: General: A&Ox4, resting in bed. No apparent distress. HEENT: Normo-cephalic, atraumatic, grossly unremarkable exam Cardio: NSR, normal S1-S2 w/o any murmurs, rubs, or gallops and JVD normal Respiratory: Wheezes to bilateral lower bases auscultation w/o any wheezes, stridor, rhonchi GI: Abd soft, non-tender, round, normo-active bowel sounds present Neuro: Moves all extremities, no sensory deficits, Normal speech Behavior: Appropriate and cooperative Extremities: Adequate palpable pulses. Bilateral lower legs ruborous, non-pitting. Discharge Data Studies Completed and Pending Completed Studies During Hospitalization Category Date Time Status XR chest 1V portable [id number] Stat Exams 08/25/25 20:46 Completed Pending at discharge Category Date Time Status Blood Culture Stat Lab 08/25/25 21:48 Results VBG [Venous Blood Gas] Stat Lab 08/26/25 03:50 Results Venous Blood Gas Stat Lab 08/25/25 20:38 Results US echo complete [CV. echo complete* [id number]] Routine Ultrasound 08/27/25 07:43 Taken Radiology Impressions Chest X-Ray 08/25/25 20:46 IMPRESSION: As above. Laboratory Results WBC 6.53 10^3/uL (3.29-11.43) 08/28/25 02:45 RBC 4.70 10^6/uL (3.85-5.65) 08/28/25 02:45 Hgb 12.10 g/dL (11.27-16.99) 08/28/25 02:45 Hct 42.5 % (37-53) 08/28/25 02:45 MCV 90.4 fl (82-101) 08/28/25 02:45 MCH 25.7 pg (27-33) L 08/28/25 02:45 MCHC 28.5 g/dL (30-55) L 08/28/25 02:45 RDW 15.1 % (12.1-15.1) 08/28/25 02:45 Plt Count 184 10^3/cmm (157-399) 08/28/25 02:45 MPV 9.7 fL (7.4-10.4) 08/28/25 02:45 Neut % (Auto) 64.1 % 08/28/25 02:45 Lymph % (Auto) 16.8 % 08/28/25 02:45 [place] % (Auto) 13.9 % 08/28/25 02:45 Eos % (Auto) 4.7 % 08/28/25 02:45 Baso % (Auto) 0.2 % 08/28/25 02:45 Neut # (Auto) 4.18 10^3/uL (1.8-7.7) 08/28/25 02:45 Lymph # (Auto) 1.1 10^3/uL (0.8-4.8) 08/28/25 02:45 [place] # (Auto) 0.9 10^3/uL (0.2-0.9) 08/28/25 02:45 Eos # (Auto) 0.3 10^3/uL (0.0-0.8) 08/28/25 02:45 Baso # (Auto) 0.0 10^3/uL (0.0-0.1) 08/28/25 02:45 Nucleated RBC % (auto) 0 % 08/28/25 02:45 Nucleated RBCs # 0.0 /100WBC 08/28/25 02:45 PT 13.50 SECONDS (12.1-14.9) 08/25/25 20:38 INR 0.96 (0.8-1.2) 08/25/25 20:38 APTT 26.5 SECONDS (23.9-36.7) 08/25/25 20:38 Specimen Type Venous 08/26/25 03:50 Darryl Test Pos 08/26/25 03:50 VBG pH 7.33 (7.32-7.42) 08/26/25 03:50 VBG pCO2 57.7 mmHg (41-51) H 08/26/25 03:50 VBG pO2 35.7 mmHg (25-40) 08/26/25 03:50 VBG HCO3 30.6 mmol/L (24-28) H 08/26/25 03:50 VBG Base Excess 3.4 mmol/L (-3.0-3.0) H 08/26/25 03:50 VBG Hematocrit 37.6 % (42-52) L 08/26/25 03:50 O2 Delivery Device Bipap 08/26/25 03:50 O2 Liters/Min 4.0 % 08/25/25 20:38 FiO2 40.0 % 08/26/25 03:50 PEEP 0.0 cmH20 08/26/25 03:50 Boiler Tube Blower ID gerca 08/26/25 03:50 Sodium 137 mmol/L (136-145) 08/28/25 02:45 Potassium 4.6 mmol/L (3.5-5.1) 08/28/25 02:45 Chloride 97 mmol/L (98-107) L 08/28/25 02:45 Carbon Dioxide 36 mmol/L (22-29) H 08/28/25 02:45 Anion Gap 8.6 (5-19) 08/28/25 02:45 BUN 30 mg/dL (8-23) H 08/28/25 02:45 Creatinine 0.9 mg/dL (0.7-1.2) 08/28/25 02:45 GFR Calculation 84.7 mL/min (90-130) L 08/28/25 02:45 Glucose 131 mg/dL (65-115) H 08/28/25 02:45 POC Glucose 124 mg/dL (70-110) H 08/28/25 06:17 Estimat Average Glucose 166 08/27/25 08:32 Hemoglobin A1c 7.4 % (4.0-6.0) H 08/27/25 08:32 Calculated Osmolality 292 mOsm/kg (285-295) 08/28/25 02:45 Lactic Acid 1.4 mmol/L (0.5-2.2) 08/25/25 20:38 Calcium 8.6 mg/dL (8.5-10.5) 08/28/25 02:45 Magnesium 2.1 mg/dL (1.7-2.3) 08/25/25 20:38 Total Bilirubin 0.3 mg/dL (0.15-1.2) 08/28/25 02:45 AST 325 U/L (0-40) H 08/28/25 02:45 ALT 91 U/L (0-41) H 08/28/25 02:45 Alkaline Phosphatase 60 U/L (40-130) 08/28/25 02:45 Troponin T Baseline 41 ng/L (0-15) H 08/25/25 20:38 Troponin T 120 Minute 39.38 ng/L (0-15) H 08/25/25 23:00 Delta Troponin T -1.62 ABS# (0-10) L 08/25/25 23:00 Troponin T Hi Sens 6Hr 36.97 ng/L (0-15) H 08/26/25 08:43 Troponin T Hi Sens 6Hr Delta -4.03 ng/L (0-12) L 08/26/25 08:43 NT-Pro-B Natriuret Pep 978 pg/mL (0-125) H 08/25/25 20:38 Total Protein 6.8 g/dL (6.6-8.7) 08/28/25 02:45 Albumin 3.7 g/dL (3.5-5.2) 08/28/25 02:45 Globulin 3.1 g/dL (1.3-4.6) 08/28/25 02:45 Triglycerides 136 mg/dL (0-150) 08/27/25 08:32 Cholesterol 132 mg/dL (0-200) 08/27/25 08:32 LDL Cholesterol, Calc 74 mg/dL (50-129) 08/27/25 08:32 HDL Cholesterol 31 mg/dL (60-100) L 08/27/25 08:32 LDL/HDL Ratio 2.39 RATIO (0.00-3.22) 08/27/25 08:32 Cholesterol/HDL Ratio 4.26 mg/dL (1.0-5.00) 08/27/25 08:32 Procalcitonin 0.74 ng/mL (0-0.5) H 08/25/25 20:38 TSH 2.12 uIU/mL (0.27-4.20) 08/27/25 08:32 Urine Color Yellow (Yellow) 08/25/25 23:23 Urine Appearance Clear (CLEAR) 08/25/25 23:23 Urine pH 5.0 (5-7) 08/25/25 23:23 Ur Specific [place] 1.009 (1.005-1.030) 08/25/25 23:23 Urine Protein Trace (Negative) A 08/25/25 23:23 Urine Glucose (UA) Negative (Normal) 08/25/25 23:23 Urine Ketones Negative (Negative) 08/25/25 23:23 Urine Blood 3+ (Negative) A 08/25/25 23:23 Urine Nitrate Negative (Negative) 08/25/25 23:23 Urine Bilirubin Negative (Negative) 08/25/25 23:23 Urine Urobilinogen 0.2 mg/dL (Negative) 08/25/25 23:23 Ur Leukocyte Esterase Negative (Negative) 08/25/25 23:23 Urine RBC 0-2 /hpf (0-2) 08/25/25 23:23 Urine WBC 0-5 /hpf (0-5) 08/25/25 23:23 Ur Squamous Epith Cells 0-5 /hpf (0-5) 08/25/25 23:23 Amorphous Sediment Not Reportable 08/25/25 23:23 Urine Bacteria None seen /hpf (NONE) 08/25/25 23:23 Hyaline Casts 3.71 /lpf 08/25/25 23:23 Influenza A (PCR) Negative (Negative) 08/25/25 22:09 Influenza Type B (PCR) Negative (Negative) 08/25/25 22:09 RSV (PCR) Negative (Negative) 08/25/25 22:09 SARS-CoV-2 (PCR) Negative (Negative) 08/25/25 22:09 Vitals Last Vital Signs Temp 98.3 F 08/28/25 04:00 Pulse 65 08/28/25 04:00 Resp 20 H 08/28/25 04:00 BP 101/72 08/28/25 04:00 Pulse Ox 90 08/28/25 04:00 O2 Del Method Nasal Cannula 08/27/25 04:00 O2 Flow Rate 4 08/27/25 15:58 FiO2 40 08/26/25 08:00 Discharge Plan Discharge Patient Disposition: Home Health Service Condition: Stable Prescriptions: New (DME) nebulizer and compressor Device See Rx Instructions .Route Qty: 1 0RF Rx Instructions: As directed amoxicillin-pot clavulanate 875-125 mg tablet 1 tab PO BID 7 Days Qty: 14 0RF budesonide 0.5 mg/2 mL suspension for nebulization 0.25 mg inhalation BID Qty: 60 0RF ipratropium-albuterol 0.5 mg-3 mg(2.5 mg base)/3 mL solution for nebulization 3 ml inhalation Q6H PRN (Reason: wheezing) Qty: 180 0RF azithromycin 500 mg tablet 500 mg PO DAILY 7 Days Qty: 7 0RF Continued tamsulosin 0.4 mg capsule 0.4 mg PO BEDTIME metformin 1,000 mg Tablet 500 mg PO BIDWMEAL hydroxyzine HCl 25 mg Tablet 25 mg PO BEDTIME diclofenac sodium 1 % Gel 2 g TOPICAL QID Rx Instructions: apply to single elbow, wrist or hand; for hand includes palm/fingers/back of hand lisinopril-hydrochlorothiazide 20-12.5 mg Tablet 2 tab PO DAILY Held acetaminophen 500 mg Tablet 1,500 mg PO BID Hold Instructions: Resume on 09/23/25. Advise holding Tylenol based products until review of liver enzymes with primary care provider. Avoid hepatotoxic agents. hydrocodone-acetaminophen 5-325 mg tablet 1 tab PO Q6H PRN (Reason: pain) Qty: 30 0RF Hold Instructions: Resume on 09/23/25. Hold with elevated liver enzymes, resume under the direction of primary care provider. Referrals: [facility] [Outside] Lulu Alves MD [Primary Care Provider, Family Practice] - 1-3 days Referral Note: Please call the [place] Saturday to arrange a discharge appointment in the next week Discharge Diet: Cardiac Discharge Activity: Resume usual activity Patient Instructions: Ipratropium (By breathing), Amoxicillin (By mouth), Azithromycin (By mouth), Budesonide (By breathing), Viral Pneumonia (DC), Acute Kidney Injury (DC), Chronic Hypertension (DC), Acute Rash (DC), Weakness (DC), Fall Prevention (DC), Chronic Respiratory Failure (DC), Opioid Safety, Patient Portal & Gianna Instructions Discharge Attestations Time Spent in Discharge Care*: greater than 30 min Quality Metrics Clinical Quality Measures [ No reported AMI, CVA or VTE this stay] Coding Level of Care Code 36122 Diagnoses Community acquired pneumonia J18.9 Laterality: left Lung location: lower lobe of lung Acute hypercapnic respiratory failure J96.02 RUSSELL (acute kidney injury) N17.9 Benign prostate hyperplasia N40.0 Generalized weakness R53.1 Venous stasis dermatitis I87.2
--- NOTE | 2025-08-28 11:30 | PC.NURSE ---
Patient refusing to take insulin for elevated blood sugar. Explained importance of sugar control. Patient verbalized understanding however stated, I don't want anything.
--- NOTE | 2025-08-28 12:38 | USR_ITS ---
PROCEDURE INFORMATION: Exam: US Duplex Lower Extremity Veins, Bilateral Exam date and time: 08/28/2025 1:20 PM Age: 64 years old Clinical indication: Edema, localized; Lower extremity, left; Additional info: Edema, l>r TECHNIQUE: Imaging protocol: Real-time duplex ultrasound of the bilateral extremities with 2-D dave scale, color Doppler flow and spectral waveform analysis including responses to compression and other maneuvers (when performed) with image documentation. Complete exam focused on the lower extremity veins. Total images: 2 COMPARISON: 1. CT knee LT wo con* [id number] 04/29/2025 6:51 AM 2. MR knee LT wo con* [id number] 01/25/2025 2:19 PM FINDINGS: Right deep veins: Unremarkable. The common femoral, femoral, proximal profunda femoral and popliteal veins are patent without thrombus. Normal Doppler waveforms. Normal compressibility and/or augmentation response. Left deep veins: Unremarkable. The common femoral, femoral, proximal profunda femoral and popliteal veins are patent without thrombus. Normal Doppler waveforms. Normal compressibility and/or augmentation response. Superficial veins: Greater saphenous veins at the saphenofemoral junctions are patent bilaterally without thrombus. Soft tissues: Right popliteal fossa longitudinally oriented small popliteal (Perez's) cyst 4.0 x 1.1 x 3.5 cm diameter. Left leg superficial subcutaneous soft tissue induration. US/[place] [id number] IMPRESSION: 1. No evidence of deep vein thrombosis. 2. Right popliteal fossa longitudinally oriented small popliteal (Perez's) cyst 4.0 x 1.1 x 3.5 cm diameter. 3. Left leg superficial subcutaneous soft tissue induration.
--- NOTE | 2025-08-28 14:57 | PC.NURSE ---
patient discharge to be cancelled. Patient and family requesting SNF placement. Informed Tete, RIP TAILER and Olivia, case management.
--- NOTE | 2025-08-28 15:47 | P.PN_ITS ---
Subjective 2 Subjective: Patient seen and examined at bedside on hospital rounds today. Initially plan to discharge patient this morning on home oxygen oral antibiotic therapy, however Patient's family arrived to the hospital to pick him up, requested that the patient go to SNF level of care that they were unable to take him home and care for him there. Coordinating with case management and nursing staff, patient will have to wait until Saturday for SNF placement. Holding discharge for PT/OT reassessment and safe discharge planning. Patient continues to endorse generalized weakness and shortness of breath, denies new or worsening symptoms. Vital signs are stable. Improved creatinine 0.9, improved AST ALT. Will continue current interventions pending SNF authorization. Vitals/I&O/Wt Last Vital Signs Temp 97.6 F 08/28/25 08:00 Pulse 75 08/28/25 08:00 Resp 24 H 08/28/25 08:00 BP 165/76 08/28/25 08:00 Pulse Ox 94 08/28/25 08:00 O2 Del Method Nasal Cannula 08/28/25 08:00 O2 Flow Rate 4 08/27/25 15:58 FiO2 40 08/26/25 08:00 08/28/25 08/28/25 08/28/25 06:59 14:59 22:59 Intake Total 250 / 1570 480 / 480 Output Total 200 / 200 Balance 250 / 720 280 / 280 Physical Exam 2 Narrative: General: A&Ox4, resting in bed. No apparent distress. HEENT: Normo-cephalic, atraumatic, grossly unremarkable exam Cardio: NSR, normal S1-S2 w/o any murmurs, rubs, or gallops and JVD normal Respiratory: Clear upper airway to auscultation, diminished bilateral lower lobes GI: Abd soft, non-tender, round, normo-active bowel sounds present Neuro: Moves all extremities, no sensory deficits, Normal speech Behavior: Appropriate and cooperative Extremities: Adequate palpable pulses. Bilateral lower legs ruborous, non- pitting. Data 08/28/25 02:45 08/28/25 02:45 A&P Assessment and plan 1. Community acquired pneumonia: 2. Acute hypercapnic respiratory failure: 3. RUSSELL (acute kidney injury): 4. Benign prostate hyperplasia: 5. Generalized weakness: 6. Venous stasis dermatitis: Plan: Community acquired pneumonia Acute Hypercapnic respiratory failure Rash 08/25: CXR: left lung base consolidation related to a pleural effusion with adjacent compressive atelectasis and possible pneumonia, subtle infiltrates Flu/RSV/COVID negative Sputum culture ordered 08/25: Blood Cultures NGTD O2 protocol, BiPAP ordered V/S q4hr, continuous cardiac monitoring, continuous pulse ox monitoring Echo results pending Continue IV abx Azithromycin, Rocephin CBC, CMP, Mag dly. RUSSELL, resolved. 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 DM2 A1c ordered, pending Hold home medication metformin Blood glucose monitoring, ACHS Low regimen sliding scale Hypoglycemic protocol BPH Continue home medication tamsulosin 0.4mg PO Generalized Weakness Hx of multiple falls Fall precautions PT/OT orders HTN BP stable, monitor V/S q4h Home medication lisinopril-hctz due to RUSSELL Venous Statis dermatitis Follow outpt w/ PCP CODE STATUS: Full Code VTE ppx: Lovenox 40mg subq dly PDMP PDMP Reviewed: Not Reviewed Attestations 2 Medical Necessity Statement*: Continued hospitalization for greater than two midnights secondary to treatment of pneumonia, generalized weakness needing PT/OT consult, pending safe discharge. Coding Level of Care Code 43469 Diagnoses Community acquired pneumonia J18.9 Acute hypercapnic respiratory failure J96.02 RUSSELL (acute kidney injury) N17.9 Benign prostate hyperplasia N40.0 Generalized weakness R53.1 Venous stasis dermatitis I87.2
[2025-08-28 16:00] VITALS: BP 151/77; PULSE 78; RESP 20; O2SAT 96
[2025-08-28 22:06] VITALS: PULSE 90; RESP 20; O2SAT 96
[2025-08-28 23:20] VITALS: BP 151/89; PULSE 70; RESP 22; TEMP 36.8; O2SAT 93
[2025-08-29] VITALS (59 sets, daily range): BP systolic 127–180; BP diastolic 61–83; PULSE 62–88; RESP 11–20; TEMP 36.5–36.9; O2SAT 86–98
[2025-08-29] MEDS: cefTRIAXone 1,000 mg SDV 1000 MG IVP (07:08)
--- NOTE | 2025-08-29 07:54 | P.PN_ITS ---
Subjective 2 Subjective: Patient is 64-year-old man seen and examined at bedside on hospital rounds today. Patient sitting up in bed eating breakfast with improved discoloration and edema in lower extremities. Advised patient that he should not sit in chair for long periods of time that this cuts off the circulation to his lower extremities and feet. Patient denies chest pain or shortness of breath, new or worsening symptoms this morning. Spoke with patient that we will wait for reevaluation from physical therapy and Occupational Therapy tomorrow morning. Vital signs remained stable, mildly elevated blood pressure 169/83 we will resume patient's blood pressure medication. Patient is refusing insulin this morning, will resume home medication meftormin if able. Vitals/I&O/Wt Last Vital Signs Temp 97.7 F 08/29/25 07:46 Pulse 71 08/29/25 07:46 Resp 16 08/29/25 07:46 BP 169/83 08/29/25 07:46 Pulse Ox 97 08/29/25 07:46 O2 Del Method Nasal Cannula 08/29/25 07:46 O2 Flow Rate 4 08/28/25 22:06 FiO2 40 08/26/25 08:00 08/28/25 08/29/25 08/29/25 22:59 06:59 14:59 Intake Total 320 / 800 Output Total 300 / 500 525 / 1025 Balance 20 / 300 -525 / -225 Physical Exam 2 Narrative: General: A&Ox4, resting in bed. No apparent distress. HEENT: Normo-cephalic, atraumatic, grossly unremarkable exam Cardio: NSR, normal S1-S2 w/o any murmurs, rubs, or gallops and JVD normal Respiratory: Clear upper airway to auscultation, diminished bilateral lower lobes GI: Abd soft, non-tender, round, normo-active bowel sounds present Neuro: Moves all extremities, no sensory deficits, Normal speech Behavior: Appropriate and cooperative Extremities: Adequate palpable pulses. Bilateral lower legs ruborous, non- pitting. Data 08/28/25 02:45 08/28/25 02:45 A&P Assessment and plan 1. Community acquired pneumonia: 2. Acute hypercapnic respiratory failure: 3. RUSSELL (acute kidney injury): 4. Benign prostate hyperplasia: 5. Generalized weakness: 6. Venous stasis dermatitis: Plan: Community acquired pneumonia Acute Hypercapnic respiratory failure Rash - 08/25: CXR: left lung base consolidation related to a pleural effusion with adjacent compressive atelectasis and possible pneumonia, subtle infiltrates - Flu/RSV/COVID negative - 08/25: Blood Cultures NGTD - O2 protocol, BiPAP ordered - V/S q4hr, continuous cardiac monitoring, continuous pulse ox monitoring - Echo: Normal left ventricular size, systolic function and wall thickness, with no regional wall motion abnormalities. Left ventricular ejection fraction is estimated at 60 %. Grade II/IV diastolic dysfunction, moderately elevated filling pressures. No significant valve abnormalities. There is no pericardial effusion. Right atrial pressure is around 5 mm of mercury. - Continue IV abx Azithromycin, Rocephin - Home oxygen via n/c 4Lpm RUSSELL, resolved. - 08/28 Cr 0.9, BUN 30 - Avoid nephrotoxic agents, renally dose medications DM2 - A1c 7.4 - Resume metformin - Blood glucose monitoring, ACHS - Low regimen sliding scale - Hypoglycemic protocol BPH - Continue home medication tamsulosin 0.4mg PO Generalized Weakness - Hx of multiple falls -Family refusing to take patient home stating that patient does not have a safe home environment with a wood-burning stove - Fall precautions - PT/OT orders , pending reevaluation and recommendations, family requesting SNF HTN - BP stable, monitor - V/S q4h - Resume home medication lisinopril hydrochlorothiazide Venous Statis dermatitis - Follow outpt w/ PCP CODE STATUS: Full Code VTE ppx: Lovenox 40mg subq dly PDMP PDMP Reviewed: Not Reviewed Attestations 2 Medical Necessity Statement*: Continued hospitalization for greater than two midnights secondary to treatment of pneumonia, generalized weakness needing PT/OT consult, pending safe discharge. Coding Level of Care Code 22837 Diagnoses Community acquired pneumonia J18.9 Acute hypercapnic respiratory failure J96.02 RUSSELL (acute kidney injury) N17.9 Benign prostate hyperplasia N40.0 Generalized weakness R53.1 Venous stasis dermatitis I87.2
--- NOTE | 2025-08-29 12:41 | PC.NURSE ---
patient transferred to med surg at 1241. Report given to Fiordaliza Albrecht LPN
[2025-08-30] VITALS (8 sets, daily range): BP systolic 149–163; BP diastolic 72–78; PULSE 75–81; RESP 15–18; TEMP 36.8–37.2; O2SAT 86–95
[2025-08-30 03:58] LABS: Hematocrit 41.8 % (37-53); Hemoglobin 12.00 g/dL (11.27-16.99); Mean Corpuscular HGB Conc 28.7 g/dL (30-55); Mean Corpuscular Hemoglobin 25.8 pg (27-33); Mean Corpuscular Volume 89.7 fl (82-101); Nucleated Red Blood Cells % 0 %; Platelet Count 245 10^3/cmm (157-399); Red Blood Count 4.66 10^6/uL (3.85-5.65); White Blood Count 5.60 10^3/uL (3.29-11.43)
[2025-08-30] MEDS: cefTRIAXone 1,000 mg SDV 1000 MG IVP (04:06)
[2025-08-30 04:21] LABS: Magnesium 2.1 mg/dL (1.7-2.3)
[2025-08-30 04:28] LABS: Alanine Aminotransferase 66 U/L (0-41); Albumin Level 3.6 g/dL (3.5-5.2); Alkaline Phosphatase 59 U/L (40-130); Anion Gap 8.8 (5-19); Aspartate Amino Transferase 118 U/L (0-40); Blood Urea Nitrogen 20 mg/dL (8-23); Calcium 8.9 mg/dL (8.5-10.5); Carbon Dioxide 39 mmol/L (22-29); Chloride 97 mmol/L (98-107); Globulin 2.5 g/dL (1.3-4.6); Glucose 118 mg/dL (65-115); Osmolality Calculated 294 mOsm/kg (285-295); Potassium 4.8 mmol/L (3.5-5.1); Sodium 140 mmol/L (136-145); Total Protein 6.1 g/dL (6.6-8.7)
--- NOTE | 2025-08-30 10:08 | P.PN_ITS ---
Subjective 2 Subjective: Patient was seen and examined at bedside on hospital rounds today. Patient sitting up in bedside chair eating breakfast stating that his shortness of breath is much improved and his leg swelling is improved. Patient states that he still wants to be evaluated for rehab, family had stated that he was unable to go home by himself. Spoke with physical therapy and they will come in later this morning for reevaluation. Working with case management on a safe discharge plan, will coordinate once further recommendations have been received. In review of patient's labs very stable creatinine, normal white blood cell count. Patient's vital signs are stable, continues oxygen supplementation via nasal cannula 3 to 4 L/min. All questions and concerns addressed with the patient at the bedside today. Vitals/I&O/Wt Last Vital Signs Temp 98.3 F 08/30/25 07:20 Pulse 75 08/30/25 07:20 Resp 15 08/30/25 07:20 BP 149/73 08/30/25 07:20 Pulse Ox 91 08/30/25 07:20 O2 Del Method Nasal Cannula 08/30/25 07:20 O2 Flow Rate 3 08/30/25 08:00 FiO2 40 08/26/25 08:00 08/29/25 08/30/25 08/30/25 22:59 06:59 14:59 Intake Total 920 / 1880 200 / 2080 480 / 480 Output Total 600 / 1150 700 / 1850 Balance 320 / 730 -500 / 230 480 / 480 Physical Exam 2 Narrative: General: A&Ox4, sitting up at bedside chair. No apparent distress. HEENT: Normo-cephalic, atraumatic, grossly unremarkable exam Cardio: NSR, normal S1-S2 w/o any murmurs, rubs, or gallops and JVD normal Respiratory: Clear upper airway to auscultation, diminished bilateral lower lobes GI: Abd soft, non-tender, round, normo-active bowel sounds present Neuro: Moves all extremities, no sensory deficits, Normal speech Behavior: Appropriate and cooperative Extremities: Adequate palpable pulses. Bilateral lower legs ruborous, non- pitting. Data 08/30/25 03:15 08/30/25 03:15 A&P Assessment and plan 1. Community acquired pneumonia: 2. Acute hypercapnic respiratory failure: 3. RUSSELL (acute kidney injury): 4. Benign prostate hyperplasia: 5. Generalized weakness: 6. Venous stasis dermatitis: Plan: Community acquired pneumonia Acute Hypercapnic respiratory failure Rash - 08/25: CXR: left lung base consolidation related to a pleural effusion with adjacent compressive atelectasis and possible pneumonia, subtle infiltrates - Flu/RSV/COVID negative - 08/25: Blood Cultures NGTD - O2 protocol, BiPAP ordered - V/S q4hr, continuous cardiac monitoring, continuous pulse ox monitoring - Echo: Normal left ventricular size, systolic function and wall thickness, with no regional wall motion abnormalities. Left ventricular ejection fraction is estimated at 60 %. Grade II/IV diastolic dysfunction, moderately elevated filling pressures. No significant valve abnormalities. There is no pericardial effusion. Right atrial pressure is around 5 mm of mercury. - Continue IV abx Azithromycin, Rocephin - transition to oral antibiotics - Home oxygen via n/c 4Lpm RUSSELL, resolved. - BUN 20, creatinine 0.8 - Avoid nephrotoxic agents, renally dose medications Transaminitis - Avoid hepatotoxic agents - Improving AST 118, ALT 66, alk phos WNL 59 DM2 - A1c 7.4 - Resume metformin - Blood glucose monitoring, ACHS - Low regimen sliding scale - Hypoglycemic protocol BPH - Continue home medication tamsulosin 0.4mg PO Generalized Weakness - Hx of multiple falls -Family refusing to take patient home stating that patient does not have a safe home environment with a wood-burning stove - Fall precautions - PT/OT orders , pending reevaluation and recommendations, family requesting SNF HTN - BP stable, monitor - V/S q4h - Resume home medication lisinopril hydrochlorothiazide Venous Statis dermatitis - Follow outpt w/ PCP CODE STATUS: Full Code VTE ppx: Lovenox 40mg subq dly PDMP PDMP Reviewed: Not Reviewed Attestations 2 Medical Necessity Statement*: Continued hospitalization for greater than two midnights secondary to treatment of pneumonia, generalized weakness needing PT/OT consult, pending safe discharge. Coding Level of Care Code 10769 Diagnoses Community acquired pneumonia J18.9 Acute hypercapnic respiratory failure J96.02 RUSSELL (acute kidney injury) N17.9 Benign prostate hyperplasia N40.0 Generalized weakness R53.1 Venous stasis dermatitis I87.2
--- NOTE | 2025-08-30 10:13 | PC.SOCIAL ---
IMM Update pg 2 of IMM updated and reviewed w/ patient. Copy provided and copy dated, initialed and placed in chart.
--- NOTE | 2025-08-30 11:28 | PM.DCS ---
Discharge Providers Date of Admission: 08/25/25 22:09 Date of Discharge: August 30, 2025 Attending Provider at Admission: Jayce Costello MD Attending Provider at Discharge: Tete Perry NP Primary Care Provider: Lulu Alves MD Diagnoses at Discharge Discharge Diagnosis 1. Community acquired pneumonia: 2. Acute hypercapnic respiratory failure: 3. RUSSELL (acute kidney injury): 4. Benign prostate hyperplasia: 5. Generalized weakness: 6. Venous stasis dermatitis: Reason for Visit Reason for Visit: WEAKNESS Brief History: Admission: Fernando Smiley is a 64 year old male with history significant for hypertension who presents with complaints of weakness and falls. He states on the morning of presentation, he felt like he had no strength in his arms and legs. He reports falling today and having to call his neighbor for help. He was on the ground most of the day he says, having to crawl from room to room. When his neighbor arrived, he called EMS for assistance. Patient states he was told he had a fever. He says he has had shortness of breath for the past month. No chest pain, nausea, vomiting, or diarrhea. He also reports a rash on his arms and trunk for the past month to which he has started to take an old prescription of bactrim for. Hospital Course Hospital Course Community acquired pneumonia Acute Hypercapnic respiratory failure Rash - 08/25: CXR: left lung base consolidation related to a pleural effusion with adjacent compressive atelectasis and possible pneumonia, subtle infiltrates - Flu/RSV/COVID negative - 08/25: Blood Cultures NGTD - O2 protocol, BiPAP ordered - V/S q4hr, continuous cardiac monitoring, continuous pulse ox monitoring - Echo: Normal left ventricular size, systolic function and wall thickness, with no regional wall motion abnormalities. Left ventricular ejection fraction is estimated at 60 %. Grade II/IV diastolic dysfunction, moderately elevated filling pressures. No significant valve abnormalities. There is no pericardial effusion. Right atrial pressure is around 5 mm of mercury. - Continue IV abx Azithromycin, Rocephin - transition to oral antibiotics - Home oxygen via n/c 4Lpm RUSSELL, resolved. - BUN 20, creatinine 0.8 - Avoid nephrotoxic agents, renally dose medications Transaminitis - Avoid hepatotoxic agents - Improving AST 118, ALT 66, alk phos WNL 59 DM2 - A1c 7.4 - Resume metformin - Blood glucose monitoring, ACHS - Low regimen sliding scale - Hypoglycemic protocol BPH - Continue home medication tamsulosin 0.4mg PO Generalized Weakness - Hx of multiple falls -Family refusing to take patient home stating that patient does not have a safe home environment with a wood-burning stove - Fall precautions - PT/OT orders , pending reevaluation and recommendations, family requesting SNF HTN - BP stable, monitor - V/S q4h - Resume home medication lisinopril hydrochlorothiazide Venous Statis dermatitis - Follow outpt w/ PCP Discharge: Initially had attempted to discharge patient this previous Saturday but family stated that the patient had wood-burning stove in his house and had steps to get up in his house and did not feel that this was a safe discharge. Had physical therapy reevaluate the patient and they did find the patient appropriate to discharge home with home health. Spoke with the patient and his son at the bedside, patient still feels that he should go to a custodial but is currently at his baseline. Discharges in stable condition to assume home health at discharge. Discharges with home oxygen 4 L/min via nasal cannula, home nebulizer prescribed. Patient is advised to follow-up with primary care provider within 1 to 2 days of discharge. Patient continues oral antibiotic therapy, prescribed at discharge. All questions and concerns addressed to the patient and his son prior to discharge. Patient states that he may dispute this discharge. Patient's son states that he can take the patient home with him. Physical Exam Narrative: General: A&Ox4, sitting up at bedside chair. No apparent distress. HEENT: Normo-cephalic, atraumatic, grossly unremarkable exam Cardio: NSR, normal S1-S2 w/o any murmurs, rubs, or gallops and JVD normal Respiratory: Clear upper airway to auscultation, diminished bilateral lower lobes GI: Abd soft, non-tender, round, normo-active bowel sounds present Neuro: Moves all extremities, no sensory deficits, Normal speech Behavior: Appropriate and cooperative Extremities: Adequate palpable pulses. Bilateral lower legs ruborous, non-pitting. Discharge Data Studies Completed and Pending Completed Studies During Hospitalization Category Date Time Status XR chest 1V portable [id number] Stat Exams 08/25/25 20:46 [place] [id number] Routine Ultrasound 08/28/25 12:38 Completed US echo complete [CV. echo complete* [id number]] Routine Ultrasound 08/27/25 07:43 Completed Pending at discharge Category Date Time Status Blood Culture Stat Lab 08/25/25 21:48 Results VBG [Venous Blood Gas] Stat Lab 08/26/25 03:50 Results Venous Blood Gas Stat Lab 08/25/25 20:38 Results Radiology Impressions Chest X-Ray 08/25/25 20:46 IMPRESSION: As above. Venous Duplex 08/28/25 12:38 IMPRESSION: 1. No evidence of deep vein thrombosis. 2. Right popliteal fossa longitudinally oriented small popliteal (Perez's) cyst 4.0 x 1.1 x 3.5 cm diameter. 3. Left leg superficial subcutaneous soft tissue induration. Laboratory Results WBC 5.60 10^3/uL (3.29-11.43) 08/30/25 03:15 RBC 4.66 10^6/uL (3.85-5.65) 08/30/25 03:15 Hgb 12.00 g/dL (11.27-16.99) 08/30/25 03:15 Hct 41.8 % (37-53) 08/30/25 03:15 MCV 89.7 fl (82-101) 08/30/25 03:15 MCH 25.8 pg (27-33) L 08/30/25 03:15 MCHC 28.7 g/dL (30-55) L 08/30/25 03:15 RDW 14.7 % (12.1-15.1) 08/30/25 03:15 Plt Count 245 10^3/cmm (157-399) 08/30/25 03:15 MPV 10.1 fL (7.4-10.4) 08/30/25 03:15 Neut % (Auto) 55.3 % 08/30/25 03:15 Lymph % (Auto) 25.5 % 08/30/25 03:15 [place] % (Auto) 12.3 % 08/30/25 03:15 Eos % (Auto) 5.9 % 08/30/25 03:15 Baso % (Auto) 0.5 % 08/30/25 03:15 Neut # (Auto) 3.09 10^3/uL (1.8-7.7) 08/30/25 03:15 Lymph # (Auto) 1.4 10^3/uL (0.8-4.8) 08/30/25 03:15 [place] # (Auto) 0.7 10^3/uL (0.2-0.9) 08/30/25 03:15 Eos # (Auto) 0.3 10^3/uL (0.0-0.8) 08/30/25 03:15 Baso # (Auto) 0.0 10^3/uL (0.0-0.1) 08/30/25 03:15 Nucleated RBC % (auto) 0 % 08/30/25 03:15 Nucleated RBCs # 0.0 /100WBC 08/30/25 03:15 PT 13.50 SECONDS (12.1-14.9) 08/25/25 20:38 INR 0.96 (0.8-1.2) 08/25/25 20:38 APTT 26.5 SECONDS (23.9-36.7) 08/25/25 20:38 Specimen Type Venous 08/26/25 03:50 Darryl Test Pos 08/26/25 03:50 VBG pH 7.33 (7.32-7.42) 08/26/25 03:50 VBG pCO2 57.7 mmHg (41-51) H 08/26/25 03:50 VBG pO2 35.7 mmHg (25-40) 08/26/25 03:50 VBG HCO3 30.6 mmol/L (24-28) H 08/26/25 03:50 VBG Base Excess 3.4 mmol/L (-3.0-3.0) H 08/26/25 03:50 VBG Hematocrit 37.6 % (42-52) L 08/26/25 03:50 O2 Delivery Device Bipap 08/26/25 03:50 O2 Liters/Min 4.0 % 08/25/25 20:38 FiO2 40.0 % 08/26/25 03:50 PEEP 0.0 cmH20 08/26/25 03:50 Animal Trainer Supervisor ID [email or web address] 08/26/25 03:50 Sodium 140 mmol/L (136-145) 08/30/25 03:15 Potassium 4.8 mmol/L (3.5-5.1) 08/30/25 03:15 Chloride 97 mmol/L (98-107) L 08/30/25 03:15 Carbon Dioxide 39 mmol/L (22-29) H 08/30/25 03:15 Anion Gap 8.8 (5-19) 08/30/25 03:15 BUN 20 mg/dL (8-23) 08/30/25 03:15 Creatinine 0.8 mg/dL (0.7-1.2) 08/30/25 03:15 GFR Calculation 96.7 mL/min (90-130) 08/30/25 03:15 Glucose 118 mg/dL (65-115) H 08/30/25 03:15 POC Glucose 111 mg/dL (70-110) H 08/30/25 06:00 Estimat Average Glucose 166 08/27/25 08:32 Hemoglobin A1c 7.4 % (4.0-6.0) H 08/27/25 08:32 Calculated Osmolality 294 mOsm/kg (285-295) 08/30/25 03:15 Lactic Acid 1.4 mmol/L (0.5-2.2) 08/25/25 20:38 Calcium 8.9 mg/dL (8.5-10.5) 08/30/25 03:15 Magnesium 2.1 mg/dL (1.7-2.3) 08/30/25 03:15 Total Bilirubin 0.3 mg/dL (0.15-1.2) 08/30/25 03:15 AST 118 U/L (0-40) H 08/30/25 03:15 ALT 66 U/L (0-41) H 08/30/25 03:15 Alkaline Phosphatase 59 U/L (40-130) 08/30/25 03:15 Troponin T Baseline 41 ng/L (0-15) H 08/25/25 20:38 Troponin T 120 Minute 39.38 ng/L (0-15) H 08/25/25 23:00 Delta Troponin T -1.62 ABS# (0-10) L 08/25/25 23:00 Troponin T Hi Sens 6Hr 36.97 ng/L (0-15) H 08/26/25 08:43 Troponin T Hi Sens 6Hr Delta -4.03 ng/L (0-12) L 08/26/25 08:43 NT-Pro-B Natriuret Pep 978 pg/mL (0-125) H 08/25/25 20:38 Total Protein 6.1 g/dL (6.6-8.7) L 08/30/25 03:15 Albumin 3.6 g/dL (3.5-5.2) 08/30/25 03:15 Globulin 2.5 g/dL (1.3-4.6) 08/30/25 03:15 Triglycerides 136 mg/dL (0-150) 08/27/25 08:32 Cholesterol 132 mg/dL (0-200) 08/27/25 08:32 LDL Cholesterol, Calc 74 mg/dL (50-129) 08/27/25 08:32 HDL Cholesterol 31 mg/dL (60-100) L 08/27/25 08:32 LDL/HDL Ratio 2.39 RATIO (0.00-3.22) 08/27/25 08:32 Cholesterol/HDL Ratio 4.26 mg/dL (1.0-5.00) 08/27/25 08:32 Procalcitonin 0.74 ng/mL (0-0.5) H 08/25/25 20:38 TSH 2.12 uIU/mL (0.27-4.20) 08/27/25 08:32 Urine Color Yellow (Yellow) 08/25/25 23:23 Urine Appearance Clear (CLEAR) 08/25/25 23:23 Urine pH 5.0 (5-7) 08/25/25 23:23 Ur Specific [place] 1.009 (1.005-1.030) 08/25/25 23:23 Urine Protein Trace (Negative) A 08/25/25 23:23 Urine Glucose (UA) Negative (Normal) 08/25/25 23:23 Urine Ketones Negative (Negative) 08/25/25 23:23 Urine Blood 3+ (Negative) A 08/25/25 23:23 Urine Nitrate Negative (Negative) 08/25/25 23:23 Urine Bilirubin Negative (Negative) 08/25/25 23:23 Urine Urobilinogen 0.2 mg/dL (Negative) 08/25/25 23:23 Ur Leukocyte Esterase Negative (Negative) 08/25/25 23:23 Urine RBC 0-2 /hpf (0-2) 08/25/25 23:23 Urine WBC 0-5 /hpf (0-5) 08/25/25 23:23 Ur Squamous Epith Cells 0-5 /hpf (0-5) 08/25/25 23:23 Amorphous Sediment Not Reportable 08/25/25 23:23 Urine Bacteria None seen /hpf (NONE) 08/25/25 23:23 Hyaline Casts 3.71 /lpf 08/25/25 23:23 Influenza A (PCR) Negative (Negative) 08/25/25 22:09 Influenza Type B (PCR) Negative (Negative) 08/25/25 22:09 RSV (PCR) Negative (Negative) 08/25/25 22:09 SARS-CoV-2 (PCR) Negative (Negative) 08/25/25 22:09 Vitals Last Vital Signs Temp 98.9 F 08/30/25 11:01 Pulse 77 08/30/25 11:01 Resp 15 08/30/25 11:01 BP 157/72 08/30/25 11:01 Pulse Ox 86 L 08/30/25 11:19 O2 Del Method Nasal Cannula 08/30/25 11:01 O2 Flow Rate 3 08/30/25 10:00 FiO2 40 08/26/25 08:00 Discharge Plan Discharge Patient Disposition: Home Health Service Condition: Stable Prescriptions: New amoxicillin-pot clavulanate 875-125 mg tablet 1 tab PO BID 7 Days Qty: 14 0RF azithromycin 500 mg tablet 500 mg PO DAILY 7 Days Qty: 7 0RF ipratropium-albuterol 0.5 mg-3 mg(2.5 mg base)/3 mL solution for nebulization 3 ml inhalation Q6H PRN (Reason: wheezing) Qty: 180 0RF budesonide 0.5 mg/2 mL suspension for nebulization 0.25 mg inhalation BID Qty: 60 0RF (DME) nebulizer and compressor Device See Rx Instructions .Route Qty: 1 0RF Rx Instructions: As directed Continued tamsulosin 0.4 mg capsule 0.4 mg PO BEDTIME metformin 1,000 mg Tablet 500 mg PO BIDWMEAL hydroxyzine HCl 25 mg Tablet 25 mg PO BEDTIME diclofenac sodium 1 % Gel 2 g TOPICAL QID Rx Instructions: apply to single elbow, wrist or hand; for hand includes palm/fingers/back of hand lisinopril-hydrochlorothiazide 20-12.5 mg Tablet 2 tab PO DAILY Held acetaminophen 500 mg Tablet 1,500 mg PO BID Hold Instructions: Resume on 09/23/25. Advise holding Tylenol based products until review of liver enzymes with primary care provider. Avoid hepatotoxic agents. hydrocodone-acetaminophen 5-325 mg tablet 1 tab PO Q6H PRN (Reason: pain) Qty: 30 0RF Hold Instructions: Resume on 09/23/25. Hold with elevated liver enzymes, resume under the direction of primary care provider. Discharge Order = DC NOW: Discharge Order (Routine); Ordered 08/30/25 Ordered By: Tete Perry Other Ambulatory Orders: DME: Nebulizer with Neb Kit (Order) Location: None Selected Ordered By: Tete Perry DME: Oxygen (Order) Location: None Selected Ordered By: Tete Perry Referrals: [facility] [Outside] Lulu Alves MD [Primary Care Provider, [facility]] - 09/09/25 9:00 am Referral Note: Discharge Diet: Cardiac Discharge Activity: Resume usual activity Patient Instructions: Ipratropium (By breathing), Amoxicillin (By mouth), Azithromycin (By mouth), Budesonide (By breathing), Viral Pneumonia (DC), Acute Kidney Injury (DC), Chronic Hypertension (DC), Acute Rash (DC), Weakness (DC), Fall Prevention (DC), Chronic Respiratory Failure (DC), Opioid Safety, Patient Portal & Gianna Instructions Discharge Attestations Time Spent in Discharge Care*: greater than 30 min Quality Metrics Clinical Quality Measures [ No reported AMI, CVA or VTE this stay] Coding Level of Care Code 02158 Diagnoses Community acquired pneumonia J18.9 Laterality: left Lung location: lower lobe of lung Acute hypercapnic respiratory failure J96.02 RUSSELL (acute kidney injury) N17.9 Benign prostate hyperplasia N40.0 Generalized weakness R53.1 Venous stasis dermatitis I87.2
--- NOTE | 2025-08-30 13:35 | PC.NURSE ---
This RN informed pt and family that we were [facility] before [facility] could [facility] and pt and family verbalized understanding. 5 minutes later this RN was notified by the ENVIRONMENTAL DIRECTOR that the pt ripped out his IV, took off his oxygen and was getting himself dressed. This RN went in the room and reminded the pt that we were waiting for oxygen to be delivered and it could take a little while. This RN also educated the pt to not remove the IV by himself d/t potential complications and to put the oxygen back on. Pt stated that he did not want to wear the oxygen right now and he forgot that we were waiting for the oxygen.
--- NOTE | 2025-08-30 15:02 | PC.OT ---
OT TREATMENT ATTEMPTED IN A.M. PATIENT ON PHONE AND REQUEST THAT I RETURN LATER. IN P.M.; PATIENT IS SCHEDULED FOR D/C TODAY. HOLD OT TREATMENT DUE TO SCHEDULED PATIENT D/C
--- NOTE | 2025-08-30 15:21 | PC.NURSE ---
Pharmacy came to deliver medications, pt refused nebulizer treatments d/t pricing. This RN informed the PAINT SPRAY INSPECTOR and educated the pt and his son on the importance of the medications.
== END 2025-08-30 15:26 | disposition home health service (06) | DRG 193 ==
LOC: ER 22:55 → ER IP 22:59 → CSU 08-26 05:57 → MEDSURG 08-29 13:15
PROVIDERS: Admitting Provider Family Medicine; Emergency Provider Student in an Organized Health Care Education/Training Program; PCP Family Medicine; Visit Provider Registered Nurse
DX: J18.9 Pneumonia, unspecified organism (principal); J96.02 Acute respiratory failure with hypercapnia; N17.9 Acute kidney failure, unspecified; Z68.43 Body mass index [BMI] 50.0-59.9, adult; J90 Pleural effusion, not elsewhere classified; N40.0 Benign prostatic hyperplasia without lower urinary tract symptoms; I87.2 Venous insufficiency (chronic) (peripheral); R74.01 Elevation of levels of liver transaminase levels; E11.9 Type 2 diabetes mellitus without complications; I10 Essential (primary) hypertension; R29.6 Repeated falls; E66.9 Obesity, unspecified; E87.70 Fluid overload, unspecified; R21 Rash and other nonspecific skin eruption; Z99.81 Dependence on supplemental oxygen; Z79.84 Long term (current) use of oral hypoglycemic drugs; Z96.659 Presence of unspecified artificial knee joint; Z88.2 Allergy status to sulfonamides
CPT/HCPCS: 36415; 36416; 71045; 80048; 80053; 80061; 81001; 82803; 82962; 83036; 83605; 83735; 83880; 84145; 84443; 84484; 85025; 85610; 85730; 87040; 87637; 93005; 93306; 93970; 94660; 94760; 94762; 96365; 96366; 96367; 96372; 96375; 97116; 97161; 97165; 99291; J0456; J0692; J0696; J1650; J3372; J3490; J7050; J9999

== ENCOUNTER 2025-09-15 10:54 | Outpatient (CLI) | payer OTHER, SELFPAY ==
--- NOTE | 2025-09-15 10:59 | MR_ITS ---
WS: [id number] MRI CERVICAL SPINE NONCONTRAST TECHNIQUE: Sagittal T1, T2 and STIR imaging. Axial T2, gradient, and fiesta imaging. CLINICAL INFORMATION: NECK UPPER THORAX SPINE PAIN COMPARISON: None. FINDINGS: Straightening of the normal cervical lordosis. Slight anterolisthesis C3 on C4 with mild central canal stenosis. Cord signal appears normal. C2-C3: Mild disc bulging. Mild LEFT bony foraminal narrowing. Moderate LEFT facet arthropathy. C3-C4: Slight retrolisthesis. Central disc protrusion with mild central canal stenosis and slight indentation cervical cord. Facet arthropathy with uncovertebral joint hypertrophy. Moderate to severe LEFT and moderate RIGHT bony foraminal narrowing. C4-C5: Disc osteophyte complex with endplate ridging. Moderate to severe LEFT and mild RIGHT bony foraminal narrowing. Moderate facet arthropathy with uncovertebral joint hypertrophy. C5-C6: Shallow RIGHT paracentral protrusion with slight contact of the cervical cord. Mild central canal stenosis. Mild LEFT greater than RIGHT bony foraminal narrowing. Moderate facet arthropathy. C6-C7: Mild disc bulging. Mild LEFT greater than RIGHT bony foraminal narrowing. Spinal canal is patent. C7-T1: Mild LEFT bony foraminal narrowing. RIGHT foramen is patent. Spinal canal is patent. T1-T2: Spinal canal and foramen are patent. Visualized brain stem structures: Normal. Prevertebral soft tissues: Normal. MR/MR cervical spin wo con* [id number] IMPRESSION: 1. Straightening normal cervical lordosis. Slight retrolisthesis C3 on C4. 2. Central disc protrusion C3-C4 with mild central canal stenosis and slight c ontact of the cervical cord. Moderate LEFT greater than RIGHT bony foraminal na rrowing at this level. 3. Mild central canal stenosis C5-C6 with tiny RIGHT paracentral protrusion. S light indentation on the cervical cord. 4. Moderate LEFT C4-5 bony foraminal narrowing
== END 2025-09-15 10:55 | disposition home or self-care (01) ==
PROVIDERS: PCP Family Medicine; Visit Provider Family Medicine
DX: M50.31 Other cervical disc degeneration, high cervical region (principal); M50.323 Other cervical disc degeneration at C6-C7 level; M48.02 Spinal stenosis, cervical region; M47.812 Spondylosis without myelopathy or radiculopathy, cervical region
CPT/HCPCS: 72141